=== PATIENT | female | born 1940 | race Caucasian/White ===

== ENCOUNTER 2019-07-20 11:56 | Inpatient (IN) ==
[2019-07-20 13:37] LABS: Basophils # (auto) 0.01 K/uL (0-0.2); Basophils % (auto) 0.1 %; Eosinophils # (auto) 0.01 K/uL (0-0.5); Eosinophils % (auto) 0.1 %; Hematocrit (blood only) 29.3 % (37-47); Hemoglobin 9.4 g/dL (12.0-16.0); Immature Granulocytes # (auto) 0.03 K/uL (0.00-0.02); Immature Granulocytes % (auto) 0.3 %; Lymphocytes # (auto) 1.38 K/uL (1.2-3.4); Lymphocytes % (auto) 12.3 %; Mean Corpuscular Hemoglobin 28.1 pg (25-34); Mean Corpuscular Hgb Conc 32.1 g/dL (32-36); Mean Corpuscular Volume 87.7 fL (80-100); Mean Platelet Volume 9.6 fL (7.4-10.4); Monocytes # (auto) 0.76 K/uL (0.11-0.59); Monocytes % (auto) 6.8 %; Neutrophils # (auto) 9.04 K/uL (1.4-6.5); Neutrophils % (auto) 80.4 %; Platelet Count 152 K/uL (130-400); RDW Coefficient of Variation 14.3 % (11.5-14.5); RDW Standard Deviation 45.4 fL (36.4-46.3); Red Blood Count 3.34 M/uL (4.2-5.4); White Blood Count 11.23 K/uL (4.8-10.8)
[2019-07-20 14:01] LABS: Alanine Aminotransferase 17 U/L (12-78); Albumin Globulin Ratio 0.6 (0.9-2); Albumin Level 2.6 gm/dl (3.4-5.0); Alkaline Phosphatase 67 U/L (45-117); BUN Creatinine Ratio 21.7 (10-20); Bilirubin,Total 0.4 mg/dl (0.2-1); Blood Urea Nitrogen 26 mg/dl (7-18); Calcium 8.1 mg/dl (8.5-10.1); Carbon Dioxide 33 mmol/L (21-32); Chloride 102 mmol/L (98-107); Est GFR (African American) 49.8; Globulin 4.1 gm/dl (2.5-4.0); Glucose 107 mg/dl (70-99); Sodium 138 mmol/L (136-145); Total Protein 6.7 gm/dl (6.4-8.2); Troponin I < 0.015 ng/ml (0-0.045)
[2019-07-20] MEDS ORDERED: ONDANSETRON INJ 2 MG/ML 2 ML VIAL IV STA (14:16)
[2019-07-20] MEDS ORDERED: MoRPHine SULFATE 4 MG/ML 1 ML CARP\\VIAL IV STA ×2 (14:16→16:29)
--- NOTE | 2019-07-20 15:53 | CT Scan Report ---
CT OF THE CERVICAL SPINE CLINICAL HISTORY: Neck pain status post trauma COMPARISON STUDY: No previous studies for comparison. CT DOSE: 2134.29 mGy.cm TECHNIQUE: CT scan of the cervical spine was performed from the skull base to the thoracic inlet. Vira ges are reviewed in the axial, sagittal, and coronal planes. IV contrast was not administered for thi s examination. A dose lowering technique was utilized adhering to the principles of ALARA. FINDINGS: The visualized portions of the lung apices reveal no evidence of pneumothorax. There is opacification of a single right-sided mastoid air cell The prevertebral soft tissues are normal. No acute fractures or subluxations are visualized. There are multilevel degenerative changes. The bones are osteopenic. There are exuberant anterior ost eophytes. There are multiple vertebral body endplate deformities which are in all likelihood old. IMPRESSION: No evidence of acute fracture or traumatic subluxation. Electronically signed by: Narinder Patel M.D. 07/20/2019 3:52 PM
--- NOTE | 2019-07-20 15:53 | CT Scan Report ---
CT OF THE HEAD WITHOUT CONTRAST CLINICAL HISTORY: Fall. COMPARISON STUDY: No previous studies for comparison. TECHNIQUE: Helical axial images of the head were obtained without IV contrast. Automated exposure con trol was utilized for the study. A dose lowering technique was utilized adhering to the principles o f ALARA. FINDINGS: No acute intracranial hemorrhage, midline shift or mass effect is present. The ventricular system is unremarkable. The basilar cisterns are patent. No extra-axial collections are present. Ther e are no findings to suggest acute dural sinus thrombosis or acute territorial infarct. No significan t calvarial abnormalities are present. Visualized portions of the sinuses and mastoid air cells are c lear. White matter hypodensity suggests small vessel disease. There is mild atrophy. Lathe Set Up Person image demo nstrates possible bilateral humeral neck fractures. IMPRESSION: 1. No acute intracranial findings. 2. No calvarial fracture. 3. Possible bilateral humeral neck fracture shown on adhesive bonding machine operator image. These can be assessed on shoulder r adiographs. Electronically signed by: Guille Newman M.D. 07/20/2019 3:51 PM
[2019-07-20 16:04] LABS: Appearance Urine Cloudy (Clear); Bacteria Urine Automated 1+ (Negative); Bilirubin Urine Negative (Negative); Blood Urine 1+ (Negative); Color Urine Dark Yellow; Epithelial Cell Urine Auto >30 /lpf (0-5); Glucose Urine UA Negative (Negative); Ketones Urine Negative (Negative); Leukocyte Esterase Urine 2+ (Negative); Nitrite Urine Negative (Negative); Protein Urine 1+ (Negative); Urobilinogen Urine Negative (Negative)
--- NOTE | 2019-07-20 16:50 | XRay Report ---
XR shoulder LT min 2V routine CLINICAL HISTORY: Left shoulder pain status post trauma COMPARISON: None. DISCUSSION: Arthritic changes are present. There is equivocal nondisplaced impacted proximal humeral fracture. No dislocation is visualized. Additional imaging could be obtained for further evaluation a s deemed clinically necessary. IMPRESSION: 1. Equivocal nondisplaced impacted proximal humeral fracture. No dislocation. Electronically signed by: Narinder Patel M.D. 07/20/2019 4:49 PM
--- NOTE | 2019-07-20 16:50 | XRay Report ---
RIGHT SHOULDER 3 VIEWS HISTORY: Right shoulder pain. fall COMPARISON: None. FINDINGS: The right clavicle is intact. No dislocation. Slightly impacted transverse fractures throug h the right humeral neck which extends to the greater tuberosity. The bones are osteopenic. Soft tiss ue swelling within the shoulder. No radiopaque foreign bodies. IMPRESSION: Right humeral head/neck fracture. No dislocation. Electronically signed by: Alexander Calderon M.D. 07/20/2019 4:48 PM
--- NOTE | 2019-07-20 16:54 | XRay Report ---
RIGHT HAND 3 VIEWS HISTORY: Right hand pain around 1st MC, fall COMPARISON: None. FINDINGS: Moderate degenerative changes throughout the hand and wrist. No acute fracture or dislocati on. Mild soft tissue swelling within the hand. The bones are osteopenic. Chondrocalcinosis within the wrist. No radiopaque foreign bodies. IMPRESSION: No acute fracture or dislocation within the right hand. Electronically signed by: Alexander Calderon M.D. 07/20/2019 4:53 PM
--- NOTE | 2019-07-20 17:56 | History & Physical Report ---
Date of Service July 20, 2019 Assessment & Plan (1) Fall: (2) Bilateral humeral fractures: This is a 78-year-old female who has significant PMH of COPD O2 dependent, T2DM insulin-dependent, HTN, diabetic neuropathy, depression with anxiety, hypothyroidism, history of uterine CA, history of GIST tumor who presents to [facility] ED after sustaining mechanical fall while at home. In ED patient was found to have bilateral humeral fractures, Left being impacted proximal humeral fracture, right being humeral head/neck fracture. Head CT and cervical spine CT otherwise unremarkable. Her H&H was decreased to 9.4 and 29.3, W BC 11.23, BUN 26, creatinine 1.20, glucose 107, troponin WNL. Her urinalysis had +2 leukocyte esterase, +1 bacteria and numerous epithelial cells. Per ED provider orthopedics was called who recommended nonweightbearing status of bilateral upper extremities and admission to hospital. admit to med/surg consult orthopedics Dr. Calixto Nonweightbearing bilateral upper extremities Bilateral sling ordered Ice to area 3 times daily Oxycodone 5 mg every 4 hours as needed moderate pain, morphine 4 mg IV every 4 hours for severe pain Bowel regimen with MiraLAX daily and senna S 1 tab daily Remain bedrest for now until seen and evaluated by Dr. Calixto PT/OT consulted (3) UTI (urinary tract infection): Possible UTI Urinalysis concerning for infection, but could also be contaminant WBC 11 K, currently afebrile Treat with IV Rocephin until culture returns (4) Diabetes mellitus, type II: Unknown A1c Obtain A1c in a.m. Continue NPH twice daily along with NovoLog before meals -discussed with pharmacy Monitor (5) Hypertension: Patient significantly hypertensive in ED, likely in setting of acute pain She did not take her medications this morning We will give losartan 100 mg x 1 now, she will resume her metoprolol this evening Continue losartan, metoprolol but will hold torsemide for now Monitor volume status daily (6) Chronic respiratory failure with hypoxia and hypercapnia: Continue oxygen supplementation On 2 L of O2 at home (7) COPD (chronic obstructive pulmonary disease): No acute exacerbation Oxygen dependent Continue Symbicort, DuoNeb as needed, incentive spirometry Follows [facility] pulmonology (8) CKD (chronic kidney disease) stage 3, GFR 30-59 ml/min: BUN/creatinine 26 and 1.20 Unknown baseline Will give 1 L IVF 60 cc/h Repeat BMP in a.m. (9) Skin excoriation: Numerous areas of skin excoriation, appearance of picking No evidence of active cellulitis Lesion upper right lip, does appear similar to impetigo Placed on Bactroban specifically to area above right lip, and other areas of excoriation Will consult wound nurse for further skin treatment (10) Hypothyroidism: Per patient history of partial thyroidectomy Continue levothyroxine, she states dosage recently reduced from 137 mcg to 125 (11) Depression: Continue Celexa and Seroquel at bedtime Affect flat, mood stable (12) DVT prophylaxis: SCDs/teds, subcu Lovenox Disposition: Admit to med/surg, nurse case management consulted as patient will likely need rehab placement Follow-up: PCP upon discharge Patient was seen and examined in collaboration with Dr. Rodgers, please see addendum History of Present Illness Chief Complaint: Mechanical fall prior to arrival Primary Care Provider: MIC HERNANDEZ This is a 78-year-old female who has significant PMH of COPD O2 dependent, T2DM insulin-dependent, HTN, diabetic neuropathy, depression with anxiety, hypothyroidism, history of uterine CA, history of GIST tumor who presents to [facility] ED after sustaining mechanical fall while at home. She was walking at home when she tripped over her oxygen tubing, reached out with both arms to catch herself and fell to the ground. She immediately had bilateral upper extremity pain and inability to get herself up. She therefore presented to ED. She denies hitting her head or syncopal episode. Prior to falling she denies any recent illness, fever, chills, sweats, lightheadedness, dizziness, chest pain, shortness breath at rest, emesis, abdominal pain, diarrhea, dysuria, increased urgency or frequency with urination. She said she does get intermittent nausea with meals. She denies any significant weight gain or loss. Denies any orthopnea or PND. She did not take any of her medications at this morning, except 45 units of NPH. In ED patient was found to have bilateral humeral fractures, Left being impacted proximal humeral fracture, right being humeral head/neck fracture. Head CT and cervical spine CT otherwise unremarkable. Her H&H was decreased to 9.4 and 29.3, W BC 11.23, BUN 26, creatinine 1.20, glucose 107, troponin WNL. Her urinalysis had +2 leukocyte esterase, +1 bacteria and numerous epithelial cells Per ED provider orthopedics was called who recommended nonweightbearing status of bilateral upper extremities and admission to hospital. Allergies Allergy/AdvReac Type Severity Reaction Status Date / Time Sulfa (Sulfonamide Allergy Intermediate HIVES Verified 07/20/19 14:20 Antibiotics) Home Medications Home Medications Medication Instructions Recorded Confirmed Type albuterol sulfate 90 mcg/actuation 2 puffs INH Q4H PRN gm 06/22/19 07/20/19 History aerosol inhaler budesonide-formoterol HFA 160 2 puffs INH BID 06/22/19 07/20/19 History mcg-4.5 mcg/actuation aerosol inhaler cholecalciferol (vitamin D3) 1,000 1,000 units PO QAM 06/22/19 07/20/19 History unit capsule escitalopram oxalate 20 mg tablet 20 mg PO QAM tab 06/22/19 07/20/19 History insulin human U-100 NPH-regulr 1 sliding scale dose SQ 06/22/19 07/20/19 History 70-30 mix 100 unit/mL subcutaneous USEASDIRECTD susp metoprolol tartrate 25 mg tablet 12.5 mg PO BID 06/22/19 07/20/19 History quetiapine 25 mg tablet 25 mg PO HS tab 06/22/19 07/20/19 History acetaminophen [Tylenol Extra 500 mg PO Q6H PRN 07/20/19 07/20/19 History Strength] gabapentin 200 mg PO BID 07/20/19 07/20/19 History levothyroxine 125 mcg PO DAILY 07/20/19 07/20/19 History losartan 100 mg PO DAILY 07/20/19 07/20/19 History torsemide 20 mg PO DAILY 07/20/19 07/20/19 History Past Med/Surg History Medical History Chronic respiratory failure with hypoxia and hypercapnia CKD (chronic kidney disease) stage 3, GFR 30-59 ml/min COPD (chronic obstructive pulmonary disease) Depression (Chronic) Diabetes mellitus, type II (Chronic) Femur fracture (Acute) Hip fracture (Acute) History of DVT (deep vein thrombosis) (Chronic) Hypertension (Chronic) Hypothyroidism (Chronic) Panic attacks (Chronic) Surgical History History of cholecystectomy History of partial thyroidectomy History of tonsillectomy and adenoidectomy History of total left hip arthroplasty Status post cholecystectomy (Chronic) Status post hysterectomy (Chronic) Family History Other No pertinent family history in first degree relatives Social History Preferred Language: Belarusian Communication Ability: Effective Post Graduate Intern Required: No Beliefs That Will Affect Care: Restorationism Restorationism Beliefs: adventist marital status: Current Living Situation: Spouse Other Information That Helps Us Care for You: No Feels Safe at Home: Yes Safety Concerns: Feels Safe At This Time Smoking Status: Never smoker Do You Dip or Chew Tobacco: No ; Hx Alcohol Use: No Hx Substance Use: No Review of Systems Review of Systems: All systems reviewed & are unremarkable except as noted in HPI & below Physical Exam Physical Exam: Constitutional: WD/WN, Elderly, F, vitals as above, NAD, lying in bed, pleasant but drowsy, conversing easily Head: Normocephalic, Atraumatic Eyes: PERRL, conjunctivae normal, anicteric sclerae ENMT: external ear and nose normal, oropharynx with dry mucous membranes Neck: trachea midline, no thyromegaly normal visual inspection Respiratory: normal respiratory effort, lungs clear to auscultation, no wheeze, rales, rhonchi. Normal insp/exp effort, no accessory muscle use Cardiovascular: RRR, no murmur, no edema Vessels: no JVD or carotid bruit Chest: normal inspection of chest Abdomen: normal bowel sounds, soft, nontender, no hepatosplenomegaly Musculoskeletal: no cyanosis or clubbing, extremities motor strength 5/5 in b/l lower ext. Skin: + excoriations on b/l lower extremities, anterior chest wall, b/l upper extremities and R upper/later lip region, no overt cellulitis. Skin warm and dry mild turgor Neurologic: PERRL, EOMI, accommodation nl, no face palsy, no dysarthria CN's II-XI intact bilaterally and moves b/l lower ext, given fracture strength/rom not tested in b/l UE. Psychiatric: A+Ox3, euthymic affect Lymphatic: no cervical or axillary lymphadenopathy : deferred Results & Data Vital Signs (Past 12 Hours) Vital Signs Temp Pulse Pulse Resp BP BP Pulse Ox 07/20/19 17:00 107 H 20 181/96 H 98 07/20/19 15:01 102 H 19 96 07/20/19 15:00 103 H 18 188/91 H 96 07/20/19 14:30 100 H 19 198/96 H 07/20/19 14:01 97 H 21 99 07/20/19 14:00 97 H 21 182/92 H 99 07/20/19 13:51 99 07/20/19 13:31 93 H 22 07/20/19 13:30 96 H 95 H 20 170/90 H 170/90 H 100 07/20/19 13:01 89 18 96 07/20/19 13:00 89 18 163/73 H 93 07/20/19 12:31 87 18 97 07/20/19 12:30 87 17 172/79 H 97 07/20/19 12:07 86 18 96 07/20/19 12:04 85 15 179/77 H 96 07/20/19 11:46 36.8 C 87 24 179/77 H 97 Laboratory Results Short CBC 07/20/19 Range/Units 13:28 WBC 11.23 H (4.8-10.8) K/uL Hgb 9.4 L (12.0-16.0) g/dL Hct 29.3 L (37-47) % Plt Count 152 (130-400) K/uL BMP 07/20/19 07/20/19 13:28 14:46 Sodium 138 Potassium 4.0 Chloride 102 Carbon Dioxide 33 H BUN 26 H Creatinine 1.20 Glucose 107 H Calcium 8.1 L Cardiac Enzymes 07/20/19 Range/Units 13:28 Total Creatine Kinase TNP Troponin I < 0.015 (0-0.045) ng/ml Liver Function 07/20/19 07/20/19 Range/Units 13:28 14:46 Total Bilirubin 0.4 (0.2-1) mg/dl AST 19 (15-37) U/L ALT 17 (12-78) U/L Alkaline Phosphatase 67 (45-117) U/L Albumin 2.6 L (3.4-5.0) gm/dl Urine 07/20/19 Range/Units 13:30 Urine Color Dark Yellow Urine Appearance Cloudy A (Clear) Urine pH 5.0 (4.5-7.5) Ur Specific Foss 1.020 (1.000-1.030) Urine Protein 1+ H (Negative) Urine Glucose (UA) Negative (Negative) Diagnostic Findings C spine CT: IMPRESSION: No evidence of acute fracture or traumatic subluxation. Hand Xray: IMPRESSION: No acute fracture or dislocation within the right hand. Head CT: IMPRESSION: 1. No acute intracranial findings. 2. No calvarial fracture. 3. Possible bilateral humeral neck fracture shown on ore roaster image. These can be assessed on shoulder radiographs. Shoulder xray L: IMPRESSION: 1. Equivocal nondisplaced impacted proximal humeral fracture. No dislocation. Shoulder xray R: IMPRESSION: Right humeral head/neck fracture. No dislocation. Medications Administered Discontinued Medications Morphine Sulfate (Morphine Sulfate) 4 mg IV NOW STA Stop: 07/20/19 14:17 Last Admin: 07/20/19 14:40 Dose: 4 mg Documented by: [id number] Morphine Sulfate (Morphine Sulfate) 4 mg IV NOW STA Stop: 07/20/19 16:30 Last Admin: 07/20/19 17:11 Dose: 4 mg Documented by: [id number] Ondansetron HCl (Zofran) 4 mg IV NOW STA Stop: 07/20/19 14:17 Last Admin: 07/20/19 14:40 Dose: 4 mg Documented by: [id number] ECG Rate (beats per minute): 96 Rhythm: normal sinus Findings: + PAC Code Status & VTE Plan Code Status Full Code VTE Prophylaxis Plan VTE Prophylaxis will be ordered: Yes Supervising Physician Co-Signing Physician Notes Attending addendum: The patient was seen and examined in emergency room in presence of the She is a 78-year-old obese female with significant PMH of COPD O2 dependent, T2DM insulin-dependent, HTN, diabetic neuropathy, depression with anxiety, hypothyroidism, history of uterine CA, history of GIST tumor who presents to [facility] ED after sustaining mechanical fall while at home. Ended up with bilateral humeral fractures Complaining of pain with any movement of the upper extremities and denies any other significant symptom On examination No apparent distress at rest except pain Hemodynamically stable with blood pressure on the upper side Both upper extremities are in sling Chest-decreased breath sounds with occasional wheezing but sites Heart-S1-S2, regular Abdomen-soft, nontender, bowel sounds present Extremities-chronic skin changes with excoriation and trace edema bilaterally, no evidence of cellulitis PRODUCT EXPERT-alert, awake and oriented x3. Generally weak Admission labs and imaging studies reviewed Has nondisplaced impacted proximal humeral fracture on left and right humeral h ead/neck fracture following the mechanical fall at home today. Ortho has been consulted Other significant comorbid conditions remained stable Agree with assessment and plan as outlined above by SHAUNA Ambriz DR (1) Bilateral humeral fractures Encounter type: initial encounter Fracture type: closed Qualified Code(s): S42.301A - Unspecified fracture of shaft of humerus, right arm, initial encounter for closed fracture; S42.302A - Unspecified fracture of shaft of humerus, left arm, initial encounter for closed fracture (2) Fall Encounter type: initial encounter Qualified Code(s): W19.XXXA - Unspecified fall, initial encounter
[2019-07-20] MEDS: LOSARTAN POTASSIUM 50 MG TAB PO SCH (18:49)
[2019-07-20] MEDS ORDERED: ALUMINUM/MAGNESIUM SUSP 30 ML UDC PO PRN (19:16)
[2019-07-20] MEDS ORDERED: MAGNESIUM HYDROXIDE SUSP 30 ML UDC PO PRN (19:16)
[2019-07-20] MEDS ORDERED: GLUCOSE 40% GEL 15 GM TUBE PO PRN (19:16)
[2019-07-20] MEDS ORDERED: OXYCODONE/ACETAMINOPHEN 5mg/325mg TAB PO PRN (19:16)
[2019-07-20] MEDS ORDERED: GLUCAGON FOR INJ 1 MG VIAL SQ PRN (19:16)
[2019-07-20] MEDS ORDERED: CARBOHYDRATES FOR HYPOGLYCEMIA PO PRN (19:16)
[2019-07-20] MEDS ORDERED: ALBUT/IPRATROP 3MG/0.5MG NEB 3 ML VIAL NEB PRN (19:16)
[2019-07-20] MEDS ORDERED: DEXTROSE 50% 50 ML SYRINGE IV PRN (19:16)
[2019-07-20] MEDS ORDERED: cefTRIAXone SODIUM 350 MG/ML IM IM SCH (19:16)
[2019-07-20] MEDS ORDERED: GLUCOSE 10 TABS/TUBE PO PRN (19:16)
[2019-07-20] MEDS ORDERED: ONDANSETRON INJ 2 MG/ML 2 ML VIAL IV PRN (19:16)
[2019-07-20] MEDS ORDERED: SODIUM CHLORIDE 0.9% 1000ML 1,000 ML IV SCH (19:30)
[2019-07-20] MEDS: MoRPHine SULFATE 4 MG/ML 1 ML CARP\\VIAL IV PRN (19:53)
--- NOTE | 2019-07-20 19:55 | Emergency Department Note ---
Entered by Juan Paez acting as a scribe for ED Provider Note CHIEF COMPLAINT: Fall HISTORY OF PRESENT ILLNESS: The patient is a 78 year old female who presents to the ED after falling this morning shortly prior to arrival. The patient reports that she was walking when she tripped on her oxygen tubing and fell forward. The patient states she initially fell straight to her knees, then to her arms and then hit her face. The patient is currently complaining of severe bilateral shoulder pain that is worse with movement. The patient also has a C-collar in place due to constant neck pain from the fall. The patient wears her oxygen at all times and lives at home with her . The patient denies any lower extremity pain. She is not on any blood thinners. Pt denies LOC, headache, fevers, chills, diaphoresis, visual changes, neck pain, chest pain, breathing difficulties, nausea, vomiting, abdominal pain, back pain, melena, hematochezia, urinary symptoms, numbness, weakness, lymphadenopathy, rash, or other complaints. REVIEW OF SYSTEMS: See HPI for pertinent positives and negatives. A total of ten systems were reviewed and were otherwise negative. PMHx/PSHx: HTN Type 2 Diabetes DVT Hypothyroidism Cholecystectomy Hysterectomy SOCIAL HISTORY: Patient lives at home. PHYSICAL EXAM: GENERAL: Awake, alert, well-appearing, in no distress HENT: Normocephalic. Contusion to right cheek. Contusion on right forehead. Oropharynx unremarkable. EYES: Normal conjunctiva. Sclera non-icteric. NECK: C collar in place. Inspection normal. Non-tender. Supple. No nuchal rigidity. FROM. No masses. Trachea is midline. No JVD. RESPIRATORY: Clear to auscultation. No wheezes. No rales. Normal respiratory effort. CARDIAC: Normal rate. Normal rhythm. No murmurs. No rubs. Extremities warm and well perfused. Pulses equal. No JVD. GI: Soft, non-distended. No tenderness to palpation. No rebound or guarding. No masses. RECTAL: Deferred. MUSCULOSKELETAL: Atraumatic. Chest examination reveals no tenderness. Mild lower midline tenderness to C spine. The back is symmetrical on inspection without obvious abnormality. There is no CVA tenderness to palpation. No joint edema. Moderate tenderness to the proximal left arm with minimal range of motion secondary to pain, and moderate tenderness to the proximal right arm with minimal range of motion secondary to pain. Fingers, hand, wrist, forearm, and elbow are nontender on the left side. Mild tenderness to the base of the right thumb, everything else is nontender. LOWER EXTREMITIES: Secondary excoriation to lower extremity with no acute appearing wound. Calves are equal size bilaterally and non-tender. No edema. No discoloration. NEURO: Normal sensorium. No sensory or motor deficits noted. SKIN: No rash or jaundice noted. EMERGENCY DEPARTMENT COURSE: 1345: The patient was evaluated in room B2, and a complete history and physical examination were performed. 1709: I discussed the case with Marion Rosales PA-C who accepts the patient for further evaluation under Dr. [facility] Hospitalist service. 1713: I checked on and updated the patient and her . I am currently waiting on [facility] to call back. 1715: I discussed the case with Dr. Atkins-[facility] who agrees to be on consult for the patient. MEDICAL DECISION MAKING: Prior records/ancillary studies reviewed. Triage Nursing notes reviewed and agree them. Additional history obtained from EMS. The patient's history was concerning for traumatic injury Differential diagnosis: Etiologies such as fracture, dislocation, intra-abdominal, pneumothorax, intrathoracic , intracranial, neurologic, as well as other traumatic pathologies were entertained. Physical examination findings: As above. Cervical collar in place. Exceptional tenderness at both shoulders. No significant knee joint tenderness bilaterally. Lower extremities are otherwise atraumatic. ER treatment provided: IV Zofran IV morphine Cervical precautions Supplemental oxygen On reassessment the patient felt better. Diagnostic interpretation by me: A 12 lead ECG revealed no emergent pathology. The labs revealed a mild leukocytosis on CBC. mild anemia present. Urinalysis without clear signs of infection, culture pending. Chemistry panel unremarkable. Imaging studies: CT imaging of the head neck did not reveal any acute findings. Cervical collar discontinued and her neck was examined. She had no findings to suggest occult cervical injury. X-ray imaging of the left and right shoulders were performed. There are bilateral humeral fractures present. X-ray imaging of the right hand performed and did not reveal any evidence of fracture. Consultation: A consultation was placed with the [facility] hospitalist service. The case was discussed and diagnostics were reviewed. The patient was evaluated in the ER for further management. I also discussed the case with [facility]. They will consult on the patient. IMPRESSION: Fall Closed head injury Bilateral proximal humeral fracture Cervical strain PLAN: Being evaluated by hospitalist The delfinae's documentation has been prepared under my direction and personally reviewed by me in its entirety. I confirm that the note above accurately reflects all work, treatment, procedures, and medical decision making performed by me. Impression & Plan Fall, Closed head injury, Bilateral humeral fractures, Cervical strain Past Med/Surg History Medical History Chronic respiratory failure with hypoxia and hypercapnia CKD (chronic kidney disease) stage 3, GFR 30-59 ml/min COPD (chronic obstructive pulmonary disease) Depression (Chronic) Diabetes mellitus, type II (Chronic) Femur fracture (Acute) Hip fracture (Acute) History of DVT (deep vein thrombosis) (Chronic) Hypertension (Chronic) Hypothyroidism (Chronic) Panic attacks (Chronic) Surgical History History of cholecystectomy History of partial thyroidectomy History of tonsillectomy and adenoidectomy History of total left hip arthroplasty Status post cholecystectomy (Chronic) Status post hysterectomy (Chronic) Family History Other No pertinent family history in first degree relatives Social History Preferred Language: Slovenian Communication Ability: Effective Certified Credit Counselor Required: No Beliefs That Will Affect Care: Jainism Jainism Beliefs: hoahaoism marital status: Current Living Situation: Spouse Other Information That Helps Us Care for You: No Feels Safe at Home: Yes Safety Concerns: Feels Safe At This Time Smoking Status: Never smoker Do You Dip or Chew Tobacco: No ; Hx Alcohol Use: No Hx Substance Use: No Results & Data Vital Signs Vital Signs - 24 hr 07/20/19 11:46 07/20/19 12:04 07/20/19 12:07 Temperature 36.8 C Temperature Source Oral Pulse Rate 87 85 86 Pulse Rate [Apical] Pulse Rate from SpO2 Sensor 85 86 Pulse Rhythm Regular Respiratory Rate 24 15 18 Respiratory Effort / Characteristics Non-Labored Respiratory Depth Normal Respiratory Pattern Blood Pressure 179/77 H 179/77 H Blood Pressure [Right Arm] Blood Pressure Mean 111 144 Blood Pressure Mean [Right Arm] Blood Pressure Position Lying Blood Pressure Position [Right Arm] Pulse Oximetry 97 96 96 Oxygen Delivery Method Nasal Cannula Oxygen Flow Rate 2 Sepsis Recent Fever Within 48 Hours No Sepsis Action Taken by Nursing No Action Required Oxygen Flow Rate - Titration Pulse Oximetry Post Tiitration 07/20/19 12:30 07/20/19 12:31 07/20/19 13:00 Temperature Temperature Source Pulse Rate 87 87 89 Pulse Rate [Apical] Pulse Rate from SpO2 Sensor 87 87 89 Pulse Rhythm Respiratory Rate 17 18 18 Respiratory Effort / Characteristics Respiratory Depth Respiratory Pattern Blood Pressure 172/79 H 163/73 H Blood Pressure [Right Arm] Blood Pressure Mean 135 131 Blood Pressure Mean [Right Arm] Blood Pressure Position Blood Pressure Position [Right Arm] Pulse Oximetry 97 97 93 Oxygen Delivery Method Oxygen Flow Rate Sepsis Recent Fever Within 48 Hours Sepsis Action Taken by Nursing Oxygen Flow Rate - Titration Pulse Oximetry Post Tiitration 07/20/19 13:01 07/20/19 13:30 07/20/19 13:31 Temperature Temperature Source Pulse Rate 89 96 H 93 H Pulse Rate [Apical] 95 H Pulse Rate from SpO2 Sensor 89 95 H Pulse Rhythm Respiratory Rate 18 20 22 Respiratory Effort / Characteristics Respiratory Depth Respiratory Pattern Blood Pressure 170/90 H Blood Pressure [Right Arm] 170/90 H Blood Pressure Mean 132 Blood Pressure Mean [Right Arm] 116 Blood Pressure Position Blood Pressure Position [Right Arm] Pulse Oximetry 96 100 Oxygen Delivery Method Nasal Cannula Room Air Oxygen Flow Rate 2 Sepsis Recent Fever Within 48 Hours Sepsis Action Taken by Nursing Oxygen Flow Rate - Titration 4 Pulse Oximetry Post Tiitration 96 07/20/19 13:51 07/20/19 14:00 07/20/19 14:01 Temperature Temperature Source Pulse Rate 97 H 97 H Pulse Rate [Apical] Pulse Rate from SpO2 Sensor 93 H 97 H Pulse Rhythm Respiratory Rate 21 21 Respiratory Effort / Characteristics Respiratory Depth Respiratory Pattern Blood Pressure 182/92 H Blood Pressure [Right Arm] Blood Pressure Mean 152 Blood Pressure Mean [Right Arm] Blood Pressure Position Blood Pressure Position [Right Arm] Pulse Oximetry 99 99 99 Oxygen Delivery Method Nasal Cannula Oxygen Flow Rate 4 Sepsis Recent Fever Within 48 Hours Sepsis Action Taken by Nursing Oxygen Flow Rate - Titration Pulse Oximetry Post Tiitration 07/20/19 14:30 07/20/19 15:00 07/20/19 15:01 Temperature Temperature Source Pulse Rate 100 H 103 H 102 H Pulse Rate [Apical] Pulse Rate from SpO2 Sensor 102 H 102 H Pulse Rhythm Respiratory Rate 19 18 19 Respiratory Effort / Characteristics Respiratory Depth Respiratory Pattern Blood Pressure 198/96 H 188/91 H Blood Pressure [Right Arm] Blood Pressure Mean 135 106 Blood Pressure Mean [Right Arm] Blood Pressure Position Blood Pressure Position [Right Arm] Pulse Oximetry 96 96 Oxygen Delivery Method Oxygen Flow Rate Sepsis Recent Fever Within 48 Hours Sepsis Action Taken by Nursing Oxygen Flow Rate - Titration Pulse Oximetry Post Tiitration 07/20/19 17:00 Temperature Temperature Source Pulse Rate Pulse Rate [Apical] 107 H Pulse Rate from SpO2 Sensor Pulse Rhythm Respiratory Rate 20 Respiratory Effort / Characteristics Non-Labored Spontaneous Respiratory Depth Respiratory Pattern Regular Blood Pressure Blood Pressure [Right Arm] 181/96 H Blood Pressure Mean Blood Pressure Mean [Right Arm] 124 Blood Pressure Position Blood Pressure Position [Right Arm] Sitting Pulse Oximetry 98 Oxygen Delivery Method Nasal Cannula Oxygen Flow Rate 2 Sepsis Recent Fever Within 48 Hours Sepsis Action Taken by Nursing Oxygen Flow Rate - Titration Pulse Oximetry Post Tiitration Home Medications Current Medication List: was personally reviewed by me Laboratory Data Attestation: I reviewed the patient's lab results. Result diagrams: 07/20/19 13:28 07/20/19 14:46 Lab Results 07/20/19 07/20/19 07/20/19 Range/Units 13:28 13:28 13:30 WBC 11.23 H (4.8-10.8) K/uL RBC 3.34 L (4.2-5.4) M/uL Hgb 9.4 L (12.0-16.0) g/dL Hct 29.3 L (37-47) % MCV 87.7 (80-100) fL MCH 28.1 (25-34) pg MCHC 32.1 (32-36) g/dL RDW Std Deviation 45.4 (36.4-46.3) fL RDW Coeff of [place] 14.3 (11.5-14.5) % Plt Count 152 (130-400) K/uL MPV 9.6 (7.4-10.4) fL Immature Gran % (Auto) 0.3 % Neut % (Auto) 80.4 % Lymph % (Auto) 12.3 % [place] % (Auto) 6.8 % Eos % (Auto) 0.1 % Baso % (Auto) 0.1 % Immature Gran # (Auto) 0.03 H (0.00-0.02) K/uL Neut # (Auto) 9.04 H (1.4-6.5) K/uL Lymph # (Auto) 1.38 (1.2-3.4) K/uL [place] # (Auto) 0.76 H (0.11-0.59) K/uL Eos # (Auto) 0.01 (0-0.5) K/uL Baso # (Auto) 0.01 (0-0.2) K/uL Sodium 138 (136-145) mmol/L Potassium (3.5-5.1) mmol/L Chloride 102 (98-107) mmol/L Carbon Dioxide 33 H (21-32) mmol/L Anion Gap 3.0 (3-11) BUN 26 H (7-18) mg/dl Creatinine 1.20 (0.6-1.2) mg/dl Est Cr Clr Drug Dosing 50.0 ml/min Est GFR ( Amer) 49.8 Est GFR (Non-Af Amer) 43.0 BUN/Creatinine Ratio 21.7 H (10-20) Glucose 107 H (70-99) mg/dl Calcium 8.1 L (8.5-10.1) mg/dl Total Bilirubin 0.4 (0.2-1) mg/dl AST (15-37) U/L ALT 17 (12-78) U/L Alkaline Phosphatase 67 (45-117) U/L Total Creatine Kinase TNP Troponin I < 0.015 (0-0.045) ng/ml Total Protein 6.7 (6.4-8.2) gm/dl Albumin 2.6 L (3.4-5.0) gm/dl Globulin 4.1 H (2.5-4.0) gm/dl Albumin/Globulin Ratio 0.6 L (0.9-2) Urine Color Dark Yellow Urine Appearance Cloudy A (Clear) Urine pH 5.0 (4.5-7.5) Ur Specific [place] 1.020 (1.000-1.030) Urine Protein 1+ H (Negative) Urine Glucose (UA) Negative (Negative) Urine Ketones Negative (Negative) Urine Blood 1+ H (Negative) Urine Nitrite Negative (Negative) Urine Bilirubin Negative (Negative) Urine Urobilinogen Negative (Negative) Ur Leukocyte Esterase 2+ H (Negative) Urine WBC (Auto) 5-10 H (0-5) /hpf Urine RBC (Auto) 10-30 H (0-4) /hpf U Hyaline Cast (Auto) 5-10 H (0-5) /lpf U Epithel Cells (Auto) >30 H (0-5) /lpf Urine Bacteria (Auto) 1+ H (Negative) 07/20/19 Range/Units 14:46 WBC (4.8-10.8) K/uL RBC (4.2-5.4) M/uL Hgb (12.0-16.0) g/dL Hct (37-47) % MCV (80-100) fL MCH (25-34) pg MCHC (32-36) g/dL RDW Std Deviation (36.4-46.3) fL RDW Coeff of Ganga (11.5-14.5) % Plt Count (130-400) K/uL MPV (7.4-10.4) fL Immature Gran % (Auto) % Neut % (Auto) % Lymph % (Auto) % [place] % (Auto) % Eos % (Auto) % Baso % (Auto) % Immature Gran # (Auto) (0.00-0.02) K/uL Neut # (Auto) (1.4-6.5) K/uL Lymph # (Auto) (1.2-3.4) K/uL [place] # (Auto) (0.11-0.59) K/uL Eos # (Auto) (0-0.5) K/uL Baso # (Auto) (0-0.2) K/uL Sodium (136-145) mmol/L Potassium 4.0 (3.5-5.1) mmol/L Chloride (98-107) mmol/L Carbon Dioxide (21-32) mmol/L Anion Gap (3-11) BUN (7-18) mg/dl Creatinine (0.6-1.2) mg/dl Est Cr Clr Drug Dosing ml/min Est GFR ( Amer) Est GFR (Non-Af Amer) BUN/Creatinine Ratio (10-20) Glucose (70-99) mg/dl Calcium (8.5-10.1) mg/dl Total Bilirubin (0.2-1) mg/dl AST 19 (15-37) U/L ALT (12-78) U/L Alkaline Phosphatase (45-117) U/L Total Creatine Kinase Troponin I (0-0.045) ng/ml Total Protein (6.4-8.2) gm/dl Albumin (3.4-5.0) gm/dl Globulin (2.5-4.0) gm/dl Albumin/Globulin Ratio (0.9-2) Urine Color Urine Appearance (Clear) Urine pH (4.5-7.5) Ur Specific [place] (1.000-1.030) Urine Protein (Negative) Urine Glucose (UA) (Negative) Urine Ketones (Negative) Urine Blood (Negative) Urine Nitrite (Negative) Urine Bilirubin (Negative) Urine Urobilinogen (Negative) Ur Leukocyte Esterase (Negative) Urine WBC (Auto) (0-5) /hpf Urine RBC (Auto) (0-4) /hpf U Hyaline Cast (Auto) (0-5) /lpf U Epithel Cells (Auto) (0-5) /lpf Urine Bacteria (Auto) (Negative) Administered Medications Sodium Chloride (Nss 1000ml) 1,000 mls @ 60 mls/hr IV .[id number] SUJEY Stop: 07/21/19 12:09 Last Admin: 07/20/19 19:43 Dose: 60 mls/hr Documented by: [id number] Losartan Potassium (Cozaar) 100 mg PO DAILY SUJEY Stop: 08/19/19 17:59 Last Admin: 07/20/19 18:49 Dose: 100 mg Documented by: [id number] Ondansetron HCl (Zofran) 4 mg IV Q6H PRN PRN Reason: Nausea Stop: 08/19/19 19:15 Last Admin: 07/20/19 19:41 Dose: 4 mg Documented by: [id number] Discontinued Medications Morphine Sulfate (Morphine Sulfate) 4 mg IV NOW STA Stop: 07/20/19 14:17 Last Admin: 07/20/19 14:40 Dose: 4 mg Documented by: [id number] Morphine Sulfate (Morphine Sulfate) 4 mg IV NOW STA Stop: 07/20/19 16:30 Last Admin: 07/20/19 17:11 Dose: 4 mg Documented by: [id number] Ondansetron HCl (Zofran) 4 mg IV NOW STA Stop: 11/15/19 14:17 Last Admin: 07/20/19 14:40 Dose: 4 mg Documented by: [id number] Imaging Data Radiologist's Impression: Radiology results as stated below per my review and the radiologist's interpretation: CT OF THE CERVICAL SPINE CLINICAL HISTORY: Neck pain status post trauma COMPARISON STUDY: No previous studies for comparison. CT DOSE: 2134.29 mGy.cm TECHNIQUE: CT scan of the cervical spine was performed from the skull base to the thoracic inlet. Images are reviewed in the axial, sagittal, and coronal planes. IV contrast was not administered for this examination. A dose lowering technique was utilized adhering to the principles of ALARA. FINDINGS: The visualized portions of the lung apices reveal no evidence of pneumothorax. There is opacification of a single right-sided mastoid air cell The prevertebral soft tissues are normal. No acute fractures or subluxations a re visualized. There are multilevel degenerative changes. The bones are osteopenic. There are exuberant anterior osteophytes. There are multiple vertebral body endplate deformities which are in all likelihood old. IMPRESSION: No evidence of acute fracture or traumatic subluxation. Electronically signed by: Narinder Patel M.D. 07/20/2019 3:[address] OF THE HEAD WITHOUT CONTRAST CLINICAL HISTORY: Fall. COMPARISON STUDY: No previous studies for comparison. TECHNIQUE: Helical axial images of the head were obtained without IV contrast. Automated exposure control was utilized for the study. A dose lowering technique was utilized adhering to the principles of ALARA. FINDINGS: No acute intracranial hemorrhage, midline shift or mass effect is present. The ventricular system is unremarkable. The basilar cisterns are patent. No extra-axial collections are present. There are no findings to suggest acute dural sinus thrombosis or acute territorial infarct. No significant calvarial abnormalities are present. Visualized portions of the sinuses and mastoid air cells are clear. White matter hypodensity suggests small vessel disease. There is mild atrophy. Solar Energy Installation Manager image demonstrates possible bilateral humeral neck fractures. IMPRESSION: 1. No acute intracranial findings. 2. No calvarial fracture. 3. Possible bilateral humeral neck fracture shown on advance scout image. These can be assessed on shoulder radiographs. Electronically signed by: Guille Newman M.D. 07/20/2019 3:51 PM RIGHT HAND 3 VIEWS HISTORY: Right hand pain around 1st MC, fall COMPARISON: None. FINDINGS: Moderate degenerative changes throughout the hand and wrist. No acute fracture or dislocation. Mild soft tissue swelling within the hand. The bones are osteopenic. Chondrocalcinosis within the wrist. No radiopaque foreign bodies. IMPRESSION: No acute fracture or dislocation within the right hand. Electronically signed by: Alexander Calderon M.D. 07/20/2019 4:53 PM XR shoulder LT min 2V routine CLINICAL HISTORY: Left shoulder pain status post trauma COMPARISON: None. DISCUSSION: Arthritic changes are present. There is equivocal nondisplaced impacted proximal humeral fracture. No dislocation is visualized. Additional imaging could be obtained for further evaluation as deemed clinically necessary. IMPRESSION: 1. Equivocal nondisplaced impacted proximal humeral fracture. No dislocation. Electronically signed by: Narinder Patel M.D. 07/20/2019 4:49 PM RIGHT SHOULDER 3 VIEWS HISTORY: Right shoulder pain. fall COMPARISON: None. FINDINGS: The right clavicle is intact. No dislocation. Slightly impacted transverse fractures through the right humeral neck which extends to the greater tuberosity. The bones are osteopenic. Soft tissue swelling within the shoulder. No radiopaque foreign bodies. IMPRESSION: Right humeral head/neck fracture. No dislocation. Electronically signed by: Alexander Calderon M.D. 07/20/2019 4:48 PM ECG Data Attestation: I personally reviewed and interpreted this ECG as follows: Indication: + other (trauma) Rate (beats per minute): 96 Rhythm: sinus rhythm ECG Intervals/blocks: + Normal QRS and + Normal QT ECG [place]: + Normal ECG ST segments: no ST depression and no ST elevation ECG Findings: + PACs; no PVCs Blood Pressure Blood Pressure Findings: Elevated blood pressure Blood Pressure Disposition: further management by hospitalist Discharge Plan Visit Data *Final* Discharge Date/Time: 07/20/19 18:45 Chief Complaint: Fall ED Provider: [place] Song Discharge Problem: Fall, Closed head injury, Bilateral humeral fractures, Cervical strain Patient Disposition: Admitted As Inpatient Discharge Instructions Interventions: ED Discharge Assessment Last Done: 07/20/19 18:45 Discharge Problem: Fall Qualifiers: Encounter type: initial encounter Qualified Code(s): W19.XXXA - Unspecified fall, initial encounter Closed head injury Qualifiers: Encounter type: initial encounter Qualified Code(s): S09.90XA - Unspecified injury of head, initial encounter Bilateral humeral fractures Qualifiers: Encounter type: initial encounter Fracture type: closed Qualified Code(s): S42.301A - Unspecified fracture of shaft of humerus, right arm, initial encounter for closed fracture Cervical strain Qualifiers: Encounter type: initial encounter Qualified Code(s): S16.1XXA - Strain of muscle, fascia and tendon at neck level, initial encounter The scribe's documentation has been prepared under my direction and personally reviewed by me in its entirety. I confirm that the note above accurately reflects all work, treatment, procedures, and medical decision making performed by me.
[2019-07-20] MEDS: cefTRIAXone SODIUM 2,000 MG in DEXTROSE 5% 50 ML IV SCH (20:57)
[2019-07-20] MEDS ORDERED: INSULIN ASPART 100 UNITS/ML 3 ML PEN SC SCH (21:00)
[2019-07-20] MEDS: BUDESONIDE/FORMOTEROL FUMARATE 160/4.5 60 PUFFS/INHALER INH SCH (21:05)
[2019-07-20] MEDS: ENOXAPARIN INJ 40 MG/0.4 ML SYR SQ SCH (21:06)
[2019-07-20] MEDS: MUPIROCIN 2% OINT 22 GM TUBE EXT SCH (21:06)
[2019-07-20] MEDS: GABAPENTIN 100 MG CAP PO SCH (21:06)
[2019-07-20] MEDS: QUETIAPINE FUMARATE 25 MG TABLET PO SCH (21:06)
[2019-07-20] MEDS: METOPROLOL TARTRATE 25 MG TAB PO SCH (21:23)
[2019-07-20] MEDS: INSULIN HUMAN NPH SC SCH (21:27)
[2019-07-20] MEDS: ACETAMINOPHEN 325 MG TAB PO PRN (21:43)
[2019-07-21] MEDS ORDERED: Nursing to Pharmacy Communication ONE ×2 (00:20→12:04)
[2019-07-21] MEDS: LEVOTHYROXINE SODIUM 125 MCG TABLET PO SCH (05:43)
[2019-07-21] MEDS: INSULIN ASPART 100 UNITS/ML 3 ML PEN SC SCH ×5 (05:50→21:13)
[2019-07-21] MEDS: INSULIN HUMAN NPH SC SCH ×3 (05:50→18:20)
[2019-07-21 06:34] LABS: Hematocrit (blood only) 27.6 % (37-47); Hemoglobin 8.8 g/dL (12.0-16.0); Mean Corpuscular Hemoglobin 28.5 pg (25-34); Mean Corpuscular Hgb Conc 31.9 g/dL (32-36); Mean Corpuscular Volume 89.3 fL (80-100); Mean Platelet Volume 9.1 fL (7.4-10.4); Platelet Count 166 K/uL (130-400); RDW Coefficient of Variation 14.3 % (11.5-14.5); RDW Standard Deviation 47.2 fL (36.4-46.3); Red Blood Count 3.09 M/uL (4.2-5.4); White Blood Count 9.07 K/uL (4.8-10.8)
[2019-07-21 07:11] LABS: BUN Creatinine Ratio 17.1 (10-20); Calcium 8.5 mg/dl (8.5-10.1); Creatinine Clr Calc Pharmacy 40.4 ml/min; Est GFR (African American) 39.3; Est GFR (Non-African American) 33.9; Potassium 3.8 mmol/L (3.5-5.1)
[2019-07-21 07:16] LABS: Estimated Average Glucose 166 mg/dl; Hemoglobin A1C 7.4 % (4.5-5.6)
[2019-07-21] MEDS: BUDESONIDE/FORMOTEROL FUMARATE 160/4.5 60 PUFFS/INHALER INH SCH ×2 (07:44→20:21)
[2019-07-21] MEDS: ACETAMINOPHEN 325 MG TAB PO PRN (07:44)
[2019-07-21] MEDS: MUPIROCIN 2% OINT 22 GM TUBE EXT SCH ×2 (07:45→20:22)
[2019-07-21] MEDS: GABAPENTIN 100 MG CAP PO SCH ×2 (07:46→20:22)
[2019-07-21] MEDS: METOPROLOL TARTRATE 25 MG TAB PO SCH ×2 (07:46→20:21)
[2019-07-21] MEDS: ESCITALOPRAM OXALATE 20 MG TAB PO SCH (07:46)
[2019-07-21] MEDS: DOCUSATE SODIUM/SENNA 50/8.6MG TAB PO SCH (07:47)
[2019-07-21] MEDS ORDERED: POLYETHYLENE (MIRALAX) 17 GM PACK ONE (07:50)
[2019-07-21] MEDS: POLYETHYLENE (MIRALAX) 17 GM PACK PO SCH (07:52)
[2019-07-21] MEDS: CHOLECALCIFEROL 1,000 UNITS TAB PO SCH (07:52)
--- NOTE | 2019-07-21 08:50 | Hospitalist Progress Note ---
Date of Service July 21, 2019 Assessment & Plan (1) Bilateral humeral fractures: Bilateral humeral fractures after mechanical fall. Orthopedic Surgery consulted. Check vitamin D level with next labs. (2) Hypertension: Continue metoprolol and losartan. (3) COPD (chronic obstructive pulmonary disease): Respiratory status stable. Continue Symbicort and nebulizer treatments PRN. (4) Chronic respiratory failure with hypoxia and hypercapnia: Chronic hypoxic respiratory failure secondary to COPD, on home O2 2 L/min. Continue supplemental oxygen. (5) CKD (chronic kidney disease) stage 3, GFR 30-59 ml/min: History of CKD stage III. Creatinine at time of admission 1.2. Creatinine today = 1.46. Watch volume status. Best to avoid nonsteroidal anti-inflammatory drugs if possible. (6) Diabetes mellitus, type II: Diabetes mellitus type 2 managed with insulin 70/30 mix. Hemoglobin A1c 7.4. Fasting blood sugar this morning 105. Currently receiving NPH BID with NovoLog coverage as necessary. (7) Hypothyroidism: TSH 0.56. Continue levothyroxine. (8) Abnormal urinalysis: Admission UA showed 1+ blood, 2+ leukocyte esterase, 5-10 WBCs, 10-30 RBCs, 5-10 hyaline casts, many epithelial cells, 1+ bacteria. May or may not have urinary tract infection. Afebrile. Urine culture pending. Receiving empiric therapy with ceftriaxone pending culture results. (9) DVT prophylaxis: Teds, SCDs, enoxaparin. (10) Discharge planning issues: Anticipated need for skilled care. Consult Case Management. Primary care follow-up with Dr. Nicole Adams. Subjective Recheck for humeral fractures and other problems. Patient seen in their room around 0820. Admitted yesterday with bilateral humeral fractures after mechanical fall. Still having significant pain. Review of Systems: Constitutional- no fever. Cardiac- no chest pain. Pulmonary- pulmonary status stable; no cough or SOB at rest. GI- no nausea, vomiting, diarrhea, melena, hematochezia. - no urinary symptoms. Otherwise, as noted above. Physical Exam Constitutional: no acute distress ENMT: Nose: + external nose abnormality (NC @ 4 LPM) Respiratory: no respiratory distress Auscultation: lungs clear to auscultation bilaterally Cardiovascular: Rate/Rhythm: regular rate and regular rhythm Heart Sounds: no gallop, no murmur and no cardiac rub Vessels: no JVD Extremities: no calf tenderness and no edema Gastrointestinal (Abdomen): normal bowel sounds, soft, nontender, no hepatosplenomegaly Musculoskeletal: Extremities: + lower leg abnormality (TEDS and SCD's applied); + extremities abnormal to inspection (upper extremities immobilized in slings; fingers warm with good cap refill) Skin: no rashes, warm and dry Psychiatric: Orientation: alert and oriented x 3 Results & Data Vital Signs (Past 12 Hours) Vital Signs Temp Pulse Pulse Resp BP BP Pulse Ox 07/21/19 07:48 36.9 C 82 16 164/66 H 97 07/21/19 01:20 86 20 125/78 96 07/20/19 22:52 37.1 C 88 18 95/53 L 95 07/20/19 21:21 37 C 108 H 16 149/79 H 94 Laboratory Results 07/21/19 05:45 07/21/19 05:45 (1) Bilateral humeral fractures Encounter type: initial encounter Fracture type: closed Qualified Code(s): S42.301A - Unspecified fracture of shaft of humerus, right arm, initial encounter for closed fracture; S42.302A - Unspecified fracture of shaft of humerus, left arm, initial encounter for closed fracture
[2019-07-21] MEDS ORDERED: HYDROmorphone INJ 1 MG/ML SYRINGE IV PRN (08:52)
[2019-07-21] MEDS: MoRPHine SULFATE 4 MG/ML 1 ML CARP\\VIAL IV PRN (08:55)
--- NOTE | 2019-07-21 09:53 | Orthopedic Consultation ---
Date of Consultation July 21, 2019 Assessment & Plan (1) Proximal humerus fracture: Bilateral proximal humerus fractures. Amenable to conservative treatment at this time. Will need sling immobilization and nonweightbearing bilateral upper extremities. Maximal assistance with ADLs. May remove sling for hygiene purposes and for gentle passive range of motion of the elbow and wrist bilateral upper extremities. Ice to bilateral shoulders. Pain controlled on current pain medicine. Will add Lidoderm patch. Patient will need to follow-up in the office in 1 to 2 weeks for repeat x-rays, . Thank you for the consultation. History of Present Illness Reason for Consultation: Bilateral proximal humerus fractures Attending Physician: Boston Larson MD History of Present Illness The patient is a 78-year-old female who presented to [facility] emergency department on 07/20/2019 after sustaining a mechanical fall from standing height. X-rays bilateral shoulders demonstrate nondisplaced bilateral proximal humerus fractures. She was subsequently admitted for further inpatient observation and treatment. Patient does admit to hitting her head however denies loss of consciousness. Scans in the emergency department of the head were negative. She denies any numbness or tingling bilateral upper extremities. Denies any associated injuries. Allergies Allergy/AdvReac Type Severity Reaction Status Date / Time Sulfa (Sulfonamide Allergy Intermediate HIVES Verified 07/20/19 14:20 Antibiotics) Home Medications Home Medications Medication Instructions Recorded Confirmed Type albuterol sulfate 90 mcg/actuation 2 puffs INH Q4H PRN gm 06/22/19 07/20/19 History aerosol inhaler budesonide-formoterol HFA 160 2 puffs INH BID 06/22/19 07/20/19 History mcg-4.5 mcg/actuation aerosol inhaler cholecalciferol (vitamin D3) 1,000 1,000 units PO QAM 06/22/19 07/20/19 History unit capsule escitalopram oxalate 20 mg tablet 20 mg PO QAM tab 06/22/19 07/20/19 History insulin human U-100 NPH-regulr 1 sliding scale dose SQ 06/22/19 07/20/19 History 70-30 mix 100 unit/mL subcutaneous USEASDIRECTD susp metoprolol tartrate 25 mg tablet 25 mg PO BID 06/22/19 07/21/19 History quetiapine 25 mg tablet 25 mg PO HS tab 06/22/19 07/20/19 History acetaminophen [Tylenol Extra 500 mg PO Q6H PRN 07/20/19 07/20/19 History Strength] gabapentin See Rx Instructions .ROUTE .COMPLEX 07/20/19 07/21/19 History levothyroxine 100 mcg PO DAILY 07/20/19 07/21/19 History losartan 100 mg PO DAILY 07/20/19 07/20/19 History torsemide 20 mg PO DAILY 07/20/19 07/20/19 History Patient History Medical History Chronic respiratory failure with hypoxia and hypercapnia CKD (chronic kidney disease) stage 3, GFR 30-59 ml/min COPD (chronic obstructive pulmonary disease) Depression (Chronic) Diabetes mellitus, type II (Chronic) Femur fracture (Acute) Hip fracture (Acute) History of DVT (deep vein thrombosis) (Chronic) Hypertension (Chronic) Hypothyroidism (Chronic) Panic attacks (Chronic) Surgical History History of cholecystectomy History of partial thyroidectomy History of tonsillectomy and adenoidectomy History of total left hip arthroplasty Status post cholecystectomy (Chronic) Status post hysterectomy (Chronic) Family History Other No pertinent family history in first degree relatives Social History Preferred Language: Russian Communication Ability: Effective Radiopharmacist Required: No Beliefs That Will Affect Care: Jehovah'S Witness Jehovah'S Witness Beliefs: shinto marital status: Current Living Situation: Spouse Other Information That Helps Us Care for You: No Feels Safe at Home: Yes Safety Concerns: Feels Safe At This Time Smoking Status: Never smoker Do You Dip or Chew Tobacco: No ; Hx Alcohol Use: No Hx Substance Use: No Review of Systems Review of Systems: All systems reviewed & are unremarkable except as noted in HPI & below Constitutional: as per Subjective / HPI Physical Exam Physical Exam: Bilateral upper extremity physical exam is neurovascular sensory intact grossly. +2 radial pulse, compartments soft nontender, skin overlying bilateral shoulders clean dry and intact. Tenderness to palpation bilateral proximal humerus. Positive edema. Sling immobilization bilateral upper extremities intact. Constitutional: WD/WN, vitals as above Results & Data Vital Signs (Past 12 Hours) Vital Signs Temp Pulse Pulse Resp BP BP Pulse Ox 07/21/19 07:48 36.9 C 82 16 164/66 H 97 07/21/19 01:20 86 20 125/78 96 07/20/19 22:52 37.1 C 88 18 95/53 L 95 Diagnostic Findings XR shoulder LT min 2V routine CLINICAL HISTORY: Left shoulder pain status post trauma COMPARISON: None. DISCUSSION: Arthritic changes are present. There is equivocal nondisplaced impacted proximal humeral fracture. No dislocation is visualized. Additional imaging could be obtained for further evaluation as deemed clinically necessary. IMPRESSION: 1. Equivocal nondisplaced impacted proximal humeral fracture. No dislocation. RIGHT SHOULDER 3 VIEWS HISTORY: Right shoulder pain. fall COMPARISON: None. FINDINGS: The right clavicle is intact. No dislocation. Slightly impacted transverse fractures through the right humeral neck which extends to the greater tuberosity. The bones are osteopenic. Soft tissue swelling within the shoulder. No radiopaque foreign bodies. IMPRESSION: Right humeral head/neck fracture. No dislocation. RIGHT HAND 3 VIEWS HISTORY: Right hand pain around 1st MC, fall COMPARISON: None. FINDINGS: Moderate degenerative changes throughout the hand and wrist. No acute fracture or dislocation. Mild soft tissue swelling within the hand. The bones are osteopenic. Chondrocalcinosis within the wrist. No radiopaque foreign bodies. IMPRESSION: No acute fracture or dislocation within the right hand.
--- NOTE | 2019-07-21 10:08 | XRay Report ---
XR chest 1V portable HISTORY: Shortness of breath. COPD COMPARISON: Chest 05/14/2015. FINDINGS: No pneumothorax. No pleural effusions. The heart is normal in size. Low lung volumes. A few left basilar linear densities. Otherwise, lungs are clear. No evidence for pulmonary edema. Bilatera l humeral neck fractures are again noted. IMPRESSION: 1. Low lung volumes with left basilar linear densities suggesting subsegmental atelectasis. 2. Bilateral humeral neck fractures are again noted. Electronically signed by: Alexander Calderon M.D. 07/21/2019 10:06 AM
[2019-07-21] MEDS: ACETAMINOPHEN 500 MG TAB PO SCH ×3 (10:11→21:21)
[2019-07-21] MEDS: LOSARTAN POTASSIUM 50 MG TAB PO SCH (10:12)
[2019-07-21] MEDS: LIDOCAINE 5% 1 PATCH TD SCH (11:27)
[2019-07-21] MEDS ORDERED: HYDROmorphone INJ 0.5 MG/0.5 ML SYR IV PRN (16:03)
[2019-07-21] MEDS: cefTRIAXone SODIUM 2,000 MG in DEXTROSE 5% 50 ML IV SCH (20:09)
[2019-07-21] MEDS: QUETIAPINE FUMARATE 25 MG TABLET PO SCH (20:21)
[2019-07-21] MEDS: ENOXAPARIN INJ 40 MG/0.4 ML SYR SQ SCH (20:22)
[2019-07-21] MEDS: TRAMADOL HCL 50 MG TABLET PO PRN (23:32)
[2019-07-22] MEDS: TRAMADOL HCL 50 MG TABLET PO PRN ×3 (05:30→23:12)
[2019-07-22] MEDS: LEVOTHYROXINE SODIUM 125 MCG TABLET PO SCH (05:30)
[2019-07-22] MEDS: ACETAMINOPHEN 500 MG TAB PO SCH ×3 (05:30→21:38)
[2019-07-22 05:31] LABS: Hematocrit (blood only) 26.7 % (37-47); Hemoglobin 8.3 g/dL (12.0-16.0); Mean Corpuscular Hemoglobin 27.9 pg (25-34); Mean Corpuscular Hgb Conc 31.1 g/dL (32-36); Mean Corpuscular Volume 89.9 fL (80-100); Mean Platelet Volume 8.6 fL (7.4-10.4); Platelet Count 143 K/uL (130-400); RDW Coefficient of Variation 14.3 % (11.5-14.5); RDW Standard Deviation 47.2 fL (36.4-46.3); Red Blood Count 2.97 M/uL (4.2-5.4); White Blood Count 8.37 K/uL (4.8-10.8)
[2019-07-22] MEDS: INSULIN HUMAN NPH SC SCH ×2 (05:31→17:52)
[2019-07-22 05:58] LABS: BUN Creatinine Ratio 21.6 (10-20); Calcium 8.1 mg/dl (8.5-10.1); Creatinine Clr Calc Pharmacy 40.4 ml/min; Est GFR (African American) 39.3; Est GFR (Non-African American) 33.9; Potassium 3.9 mmol/L (3.5-5.1)
[2019-07-22] MEDS: POLYETHYLENE (MIRALAX) 17 GM PACK PO SCH (08:56)
[2019-07-22] MEDS: METOPROLOL TARTRATE 25 MG TAB PO SCH ×2 (08:58→21:38)
[2019-07-22] MEDS: LOSARTAN POTASSIUM 50 MG TAB PO SCH (08:58)
[2019-07-22] MEDS: ESCITALOPRAM OXALATE 20 MG TAB PO SCH (08:58)
[2019-07-22] MEDS: GABAPENTIN 100 MG CAP PO SCH ×2 (09:00→21:38)
[2019-07-22] MEDS: CHOLECALCIFEROL 1,000 UNITS TAB PO SCH (09:01)
[2019-07-22] MEDS: BUDESONIDE/FORMOTEROL FUMARATE 160/4.5 60 PUFFS/INHALER INH SCH ×2 (09:01→21:37)
[2019-07-22] MEDS: DOCUSATE SODIUM/SENNA 50/8.6MG TAB PO SCH (09:01)
[2019-07-22] MEDS: INSULIN ASPART 100 UNITS/ML 3 ML PEN SC SCH ×4 (09:10→21:49)
[2019-07-22 09:59] LABS: Folate (Folic Acid) 18.55 ng/ml (>5.38)
--- NOTE | 2019-07-22 13:31 | Hospitalist Progress Note ---
Date of Service July 22, 2019 Assessment & Plan (1) Bilateral humeral fractures: Bilateral humeral fractures after mechanical fall. Orthopedic Surgery consulted. Nonoperative management recommended: sling immobilization non-weight bearing upper extremities may remove sling for hygiene purposes and gentle passive ROM of elbows and wrists ice to shoulders Ortho f/u in clinic in 1-2 weeks. Management of osteoporosis as discussed below. (2) Osteoporosis: Bilateral humeral fractures. Vitamin D level = 16.9. Calcium + vitamin D supplements. Outpatient bone density measurement. (3) Hypertension: Continue metoprolol and losartan. (4) COPD (chronic obstructive pulmonary disease): Respiratory status stable. Continue Symbicort and nebulizer treatments PRN. (5) Chronic respiratory failure with hypoxia and hypercapnia: Chronic hypoxic respiratory failure secondary to COPD, on home O2 2 L/min. Continue supplemental oxygen. (6) CKD (chronic kidney disease) stage 3, GFR 30-59 ml/min: History of CKD stage III. Creatinine at time of admission 1.2. Creatinine today = 1.46. Watch volume status. Best to avoid nonsteroidal anti-inflammatory drugs if possible. (7) Diabetes mellitus, type II: Diabetes mellitus type 2 managed with insulin 70/30 mix. Hemoglobin A1c 7.4. Fasting blood sugar this morning 135. Currently receiving NPH BID with NovoLog coverage as necessary. (8) Hypothyroidism: TSH 0.56. Continue levothyroxine. (9) Abnormal urinalysis: Admission UA showed 1+ blood, 2+ leukocyte esterase, 5-10 WBCs, 10-30 RBCs, 5-10 hyaline casts, many epithelial cells, 1+ bacteria. May or may not have urinary tract infection. Afebrile. Receiving empiric therapy with ceftriaxone pending culture results. Urine culture growing more than 3 types of organisms, probable contamination. DC ceftriaxone. (10) Anemia: Hgb at time of admission 9.4. MCV 88. Hgb 9.4 --> 8.8 --> 8.3. Fe 21, transferrin 159, transferrin sat 9%. B12 371. Folate 18. Appears that patient has chronic Fe deficiency anemia. May have acute blood loss as well, possibly secondary to trauma. Check stools for OB. Start FeSO4. Follow H/H. Consider eventual endoscopic GI evaluation if not recently done and medical status allows. (11) DVT prophylaxis: Teds, SCDs, enoxaparin. (12) Discharge planning issues: Anticipated need for skilled care. Consult Case Management. Primary care follow-up with Dr. Nicole Adams. Subjective Recheck for humeral fractures and other problems. Patient seen in their room around 0930. Should pain somewhat better; analgesics help. [place] cath placed yesterday because of decreased mobility. No new problems. Review of Systems: Constitutional- no fever. Cardiac- no chest pain. Pulmonary- pulmonary status stable; no cough or SOB at rest. GI- no nausea, vomiting, diarrhea, melena, hematochezia. - as noted above. Otherwise, as noted above. Physical Exam Constitutional: no acute distress ENMT: Nose: + external nose abnormality (NC @ 4 LPM) Respiratory: no respiratory distress Auscultation: lungs clear to auscultation bilaterally Cardiovascular: Rate/Rhythm: regular rate and regular rhythm Heart Sounds: no gallop, no murmur and no cardiac rub Vessels: no JVD Extremities: no calf tenderness and no edema Gastrointestinal (Abdomen): normal bowel sounds, soft, nontender, no hepatosplenomegaly Musculoskeletal: Extremities: + lower leg abnormality (TEDS and SCD's applied); + extremities abnormal to inspection (upper extremities immobilized in slings; fingers warm with good cap refill) Skin: no rashes, warm and dry Psychiatric: Orientation: alert and oriented x 3 Results & Data Vital Signs (Past 12 Hours) Vital Signs Temp Pulse Resp BP Pulse Ox 07/22/19 07:31 36.4 C L 76 18 146/68 H 99 Laboratory Results 07/22/19 05:14 07/22/19 05:14 (1) Bilateral humeral fractures Encounter type: initial encounter Fracture type: closed Qualified Code(s): S42.301A - Unspecified fracture of shaft of humerus, right arm, initial encounter for closed fracture; S42.302A - Unspecified fracture of shaft of humerus, left arm, initial encounter for closed fracture
[2019-07-22] MEDS ORDERED: ERGOCALCIFEROL 50,000 UNITS CAP PO ONE (14:00)
[2019-07-22] MEDS: LIDOCAINE 5% 1 PATCH TD SCH (14:37)
[2019-07-22] MEDS: MUPIROCIN 2% OINT 22 GM TUBE EXT SCH ×2 (14:38→21:38)
[2019-07-22] MEDS: cefTRIAXone SODIUM 2,000 MG in DEXTROSE 5% 50 ML IV SCH (19:35)
[2019-07-22] MEDS: ENOXAPARIN INJ 40 MG/0.4 ML SYR SQ SCH (21:38)
[2019-07-22] MEDS: QUETIAPINE FUMARATE 25 MG TABLET PO SCH (21:38)
[2019-07-22] MEDS: CALCIUM CARBONATE 1250MG TAB PO SCH (21:38)
[2019-07-23 05:28] LABS: Hemoglobin 8.5 g/dL (12.0-16.0); Mean Corpuscular Hemoglobin 27.7 pg (25-34); Mean Corpuscular Hgb Conc 31.5 g/dL (32-36); Mean Corpuscular Volume 87.9 fL (80-100); Mean Platelet Volume 9.3 fL (7.4-10.4); Platelet Count 178 K/uL (130-400); RDW Coefficient of Variation 14.2 % (11.5-14.5); RDW Standard Deviation 45.8 fL (36.4-46.3); Red Blood Count 3.07 M/uL (4.2-5.4); White Blood Count 9.18 K/uL (4.8-10.8)
[2019-07-23 05:32] LABS: BUN Creatinine Ratio 22.7 (10-20); Calcium 8.6 mg/dl (8.5-10.1); Creatinine Clr Calc Pharmacy 54.6 ml/min; Est GFR (African American) 56.5; Est GFR (Non-African American) 48.8; Potassium 4.1 mmol/L (3.5-5.1)
[2019-07-23] MEDS: ACETAMINOPHEN 500 MG TAB PO SCH ×3 (05:40→22:43)
[2019-07-23] MEDS: LEVOTHYROXINE SODIUM 125 MCG TABLET PO SCH (05:40)
[2019-07-23] MEDS: INSULIN HUMAN NPH SC SCH ×2 (05:41→17:13)
[2019-07-23] MEDS: MUPIROCIN 2% OINT 22 GM TUBE EXT SCH ×2 (09:09→21:22)
[2019-07-23] MEDS: ESCITALOPRAM OXALATE 20 MG TAB PO SCH (09:10)
[2019-07-23] MEDS: CHOLECALCIFEROL 1,000 UNITS TAB PO SCH (09:10)
[2019-07-23] MEDS: GABAPENTIN 100 MG CAP PO SCH ×2 (09:10→21:08)
[2019-07-23] MEDS: POLYETHYLENE (MIRALAX) 17 GM PACK PO SCH (09:10)
[2019-07-23] MEDS: LOSARTAN POTASSIUM 50 MG TAB PO SCH (09:10)
[2019-07-23] MEDS: METOPROLOL TARTRATE 25 MG TAB PO SCH ×2 (09:10→21:11)
[2019-07-23] MEDS: CALCIUM CARBONATE 1250MG TAB PO SCH ×2 (09:10→21:12)
[2019-07-23] MEDS: LIDOCAINE 5% 1 PATCH TD SCH (09:11)
[2019-07-23] MEDS: DOCUSATE SODIUM/SENNA 50/8.6MG TAB PO SCH (09:12)
[2019-07-23] MEDS: BUDESONIDE/FORMOTEROL FUMARATE 160/4.5 60 PUFFS/INHALER INH SCH ×2 (09:12→21:12)
[2019-07-23] MEDS: INSULIN ASPART 100 UNITS/ML 3 ML PEN SC SCH ×4 (09:13→21:14)
[2019-07-23] MEDS: TRAMADOL HCL 50 MG TABLET PO PRN (12:06)
[2019-07-23] MEDS: FERROUS SULFATE 325 MG TAB PO SCH (13:12)
--- NOTE | 2019-07-23 16:04 | Hospitalist Progress Note ---
Date of Service July 23, 2019 Assessment & Plan (1) Bilateral humeral fractures: S/P mechanical fall. Left shoulder xray showed equivocal nondisplaced impacted proximal humeral fracture. Right shoulder showed right humeral head/neck fracture. Orthopedic on board Nonoperative conservative management Continue sling immobilization and non-weight bearing upper extremities May remove sling for hygiene purposes and gentle passive ROM of elbows and wrists Continue pain control Follow up with Ortho clinic in 1-2 weeks with repeat xray Fall precaution Waiting for placement (2) Osteoporosis: Osteoporosis with current pathological fracture of bilateral prox humerus Bilateral humeral fractures. Vitamin D level 16.9. Continue Calcium + vitamin D supplements. Outpatient bone density measurement. (3) Hypertension: Continue metoprolol and losartan. (4) COPD (chronic obstructive pulmonary disease): (5) Chronic respiratory failure with hypoxia and hypercapnia: No respiratory distress Continue Symbicort and nebulizer treatments PRN. Continue supplemental oxygen. Stable (6) CKD (chronic kidney disease) stage 3, GFR 30-59 ml/min: History of CKD stage III. Creatinine at time of admission 1.2. Creatinine today 1.08 Avoid nephrotoxic agents (7) Diabetes mellitus, type II: Diabetes mellitus type 2 managed with insulin 70/30 mix. Hemoglobin A1c 7.4. On NPH BID with NovoLog coverage as necessary. Continue monitor BS (8) Hypothyroidism: TSH 0.56. Continue levothyroxine. (9) Abnormal urinalysis: UA positive for leukocytes and bacteria on admission Urine culture growing more than 3 types of organisms, probable contamination. Afebrile and leukocytosis wnl Received IV ceftriaxone 3 doses, will d/c ceftriaxone (10) Anemia: Hgb at time of admission 9.4. MCV 88. Hgb 9.4 --> 8.8 --> 8.3-->8.5 Fe 21, transferrin 159, transferrin sat 9%. B12 371. Folate 18. Appears that patient has chronic Fe deficiency anemia. Will need outpatient GI work up Continue iron supplement Monitor CBC (11) DVT prophylaxis: Teds, SCDs, enoxaparin. (12) Discharge planning issues: Anticipated need for skilled care. Consult Case Management. Primary care follow-up with Dr. Nicole Adams. Subjective Pt was seen and examined Sitting in chair with no distress with daughter and present Pain is control Denies any chest pain, palpitation and SOB Physical Exam Physical Exam: General- No acute distress Head- atraumatic Eyes- PERRL, EOMI, ENT- oropharynx clear Neck- supple, no JVD Lungs- clear to auscultation Heart- regular rhythm; no murmur Abdomen- normal bowel sounds, soft, nontender Extremities- no calf tenderness, +slings in both upper extremities Neuro- alert, oriented x 3; PERRL, EOMI; no facial palsy; no dysarthria Skin- warm & dry Results & Data Vital Signs (Past 12 Hours) Vital Signs Temp Pulse Pulse Resp BP BP Pulse Ox 07/23/19 15:16 37.3 C 83 16 142/78 H 90 07/23/19 12:10 37 C 81 14 145/74 H 93 07/23/19 08:46 36.5 C 83 18 154/75 H 94 (1) Bilateral humeral fractures Encounter type: initial encounter Fracture type: closed Qualified Code(s): S42.301A - Unspecified fracture of shaft of humerus, right arm, initial encounter for closed fracture; S42.302A - Unspecified fracture of shaft of humerus, left arm, initial encounter for closed fracture
[2019-07-23] MEDS: ENOXAPARIN INJ 40 MG/0.4 ML SYR SQ SCH (21:07)
[2019-07-23] MEDS: EUCERIN CR 120 GM JAR EXT SCH (21:07)
[2019-07-23] MEDS: QUETIAPINE FUMARATE 25 MG TABLET PO SCH (21:12)
[2019-07-24] MEDS: TRAMADOL HCL 50 MG TABLET PO PRN ×2 (02:28→11:55)
[2019-07-24] MEDS ORDERED: Nursing to Pharmacy Communication ONE (06:27)
[2019-07-24] MEDS: ACETAMINOPHEN 500 MG TAB PO SCH ×3 (06:32→22:07)
[2019-07-24] MEDS: LEVOTHYROXINE SODIUM 125 MCG TABLET PO SCH (06:32)
[2019-07-24] MEDS: BUDESONIDE/FORMOTEROL FUMARATE 160/4.5 60 PUFFS/INHALER INH SCH ×2 (07:40→20:18)
[2019-07-24] MEDS: INSULIN HUMAN NPH SC SCH ×2 (08:46→17:09)
[2019-07-24] MEDS: CHOLECALCIFEROL 1,000 UNITS TAB PO SCH (08:53)
[2019-07-24] MEDS: ESCITALOPRAM OXALATE 20 MG TAB PO SCH (08:53)
[2019-07-24] MEDS: GABAPENTIN 100 MG CAP PO SCH ×2 (08:54→20:17)
[2019-07-24] MEDS: CALCIUM CARBONATE 1250MG TAB PO SCH ×2 (08:55→20:18)
[2019-07-24] MEDS: POLYETHYLENE (MIRALAX) 17 GM PACK PO SCH (08:56)
[2019-07-24] MEDS: DOCUSATE SODIUM/SENNA 50/8.6MG TAB PO SCH (08:56)
[2019-07-24] MEDS: MUPIROCIN 2% OINT 22 GM TUBE EXT SCH ×2 (09:01→20:17)
[2019-07-24] MEDS: EUCERIN CR 120 GM JAR EXT SCH ×2 (09:01→20:17)
[2019-07-24] MEDS: METOPROLOL TARTRATE 25 MG TAB PO SCH ×2 (09:06→20:19)
[2019-07-24] MEDS: LOSARTAN POTASSIUM 50 MG TAB PO SCH (09:07)
[2019-07-24] MEDS: INSULIN ASPART 100 UNITS/ML 3 ML PEN SC SCH ×4 (09:10→20:20)
[2019-07-24] MEDS: LIDOCAINE 5% 1 PATCH TD SCH (09:15)
[2019-07-24 10:34] LABS: Blood Urea Nitrogen 23 mg/dl (7-18); Calcium 9.6 mg/dl (8.5-10.1); Carbon Dioxide 32 mmol/L (21-32); Chloride 97 mmol/L (98-107); Creatinine Clr Calc Pharmacy 61.4 ml/min; Est GFR (African American) 65.2; Est GFR (Non-African American) 56.2; Glucose 210 mg/dl (70-99); Potassium 3.9 mmol/L (3.5-5.1); Sodium 136 mmol/L (136-145)
[2019-07-24 10:38] LABS: Troponin I < 0.015 ng/ml (0-0.045)
[2019-07-24] MEDS ORDERED: SODIUM CHLORIDE 0.9% 500 ML IV ONE (11:15)
[2019-07-24] MEDS ORDERED: METOPROLOL TARTRATE 1 MG/ML VIAL IV STA (11:18)
[2019-07-24] MEDS ORDERED: dilTIAZem HCl 5 MG/ML 5 ML VIAL IV PRN (11:30)
[2019-07-24 11:37] LABS: Hematocrit (blood only) 28.1 % (37-47); Hemoglobin 9.1 g/dL (12.0-16.0); Mean Corpuscular Hemoglobin 28.3 pg (25-34); Mean Corpuscular Hgb Conc 32.4 g/dL (32-36); Mean Corpuscular Volume 87.5 fL (80-100); Mean Platelet Volume 9.2 fL (7.4-10.4); Platelet Count 199 K/uL (130-400); RDW Coefficient of Variation 14.2 % (11.5-14.5); RDW Standard Deviation 45.2 fL (36.4-46.3); Red Blood Count 3.21 M/uL (4.2-5.4); White Blood Count 8.47 K/uL (4.8-10.8)
[2019-07-24] MEDS ORDERED: Heparin IV Standard *NO* Bolus IV SCH (11:56)
[2019-07-24] MEDS: FERROUS SULFATE 325 MG TAB PO SCH (11:56)
[2019-07-24] MEDS ORDERED: dilTIAZem HCl 125 MG in DEXTROSE 5% 100 ML IV PRN (12:00)
[2019-07-24] MEDS: HEPARIN SODIUM/DEXTROSE 25,000 UNITS/500 ML BAG IV SCH (13:18)
[2019-07-24 13:40] LABS: INR 1.1 (0.9-1.1); Partial Thromboplastin Time 27.2 Seconds (21.0-31.0); Prothrombin Time 11.1 Seconds (9.0-12.0)
--- NOTE | 2019-07-24 16:33 | Cardiology Consultation ---
Date of Consultation July 24, 2019 Assessment & Plan (1) Atrial fibrillation with rapid ventricular response: Asymptomatic 5 mg and should she remain in sinus rhythm then a Cardizem drip will be initiated. No documented history of atrial arrhythmias however given her chronic O2 dependence the likelihood is very high. At this time we will give her IV metoprolol There are no contraindications from the orthopedic standpoint and IV heparin will be initiated at this time. However, given the patient's history of recurrent falls and the fact that she has an obsessive disorder with picking at her skin causing recurrent lesions I do not believe she is a long-term anticoagulation candidate. She agrees with this and states that she does fall often. Obviously given her inability to anticoagulate even for a 30-day window antiarrhythmic therapy would not be indicated at this time. (2) Proximal humerus fracture: Status post fall (3) Skin excoriation: I believe this further supports that she is not an anticoagulation candidate. (4) Fall: Recurrent History of Present Illness Reason for Consultation: Atrial fibrillation with rapid ventricular response Requesting Physician: Dr. Simpson Attending Physician: Zain Simpson MD History of Present Illness Is my pleasure to see Ms. Chinchilla in consultation today 07/24/2019. She is a very pleasant 78-year-old woman who was originally admitted to [facility] after she suffered a traumatic fall after tripping over her oxygen hose. She ultimately suffered bilateral humeral fractures and was seen by orthopedics. Medical therapy was recommended and she was being followed on the medical unit. During morning vital signs checks on the her heart rate was significantly elevated and an EKG was performed which revealed atrial fibrillation with rapid ventricular response. At that time she was asymptomatic and denied any chest pain, shortness of breath, palpitations, lightheadedness, dizziness or syncope. She did state that she was very anxious at that time. She was ultimately transferred to the telemetry unit. She states that she does fall often and has had a previous hip fracture from a fall as well including the recent fracture status post fall. She is on chronic O2 at home. She has no history of any atrial arrhythmias or any cardiac pathophysiology. 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 Allergies Allergy/AdvReac Type Severity Reaction Status Date / Time Sulfa (Sulfonamide Allergy Intermediate HIVES Verified 07/20/19 14:20 Antibiotics) Home Medications Home Medications Medication Instructions Recorded Confirmed Type albuterol sulfate 90 mcg/actuation 2 puffs INH Q4H PRN gm 06/22/19 07/20/19 History aerosol inhaler budesonide-formoterol HFA 160 2 puffs INH BID 06/22/19 07/20/19 History mcg-4.5 mcg/actuation aerosol inhaler cholecalciferol (vitamin D3) 1,000 1,000 units PO QAM 06/22/19 07/20/19 History unit capsule escitalopram oxalate 20 mg tablet 20 mg PO QAM tab 06/22/19 07/20/19 History insulin human U-100 NPH-regulr 1 sliding scale dose SQ 06/22/19 07/20/19 History 70-30 mix 100 unit/mL subcutaneous USEASDIRECTD susp metoprolol tartrate 25 mg tablet 25 mg PO BID 06/22/19 07/21/19 History quetiapine 25 mg tablet 25 mg PO HS tab 06/22/19 07/20/19 History acetaminophen [Tylenol Extra 500 mg PO Q6H PRN 07/20/19 07/20/19 History Strength] gabapentin See Rx Instructions .ROUTE .COMPLEX 07/20/19 07/21/19 History levothyroxine 100 mcg PO DAILY 07/20/19 07/21/19 History losartan 100 mg PO DAILY 07/20/19 07/20/19 History torsemide 20 mg PO DAILY 07/20/19 07/20/19 History Patient History Medical History Chronic respiratory failure with hypoxia and hypercapnia CKD (chronic kidney disease) stage 3, GFR 30-59 ml/min COPD (chronic obstructive pulmonary disease) Depression (Chronic) Diabetes mellitus, type II (Chronic) Femur fracture (Acute) Hip fracture (Acute) History of DVT (deep vein thrombosis) (Chronic) Hypertension (Chronic) Hypothyroidism (Chronic) Osteoporosis Panic attacks (Chronic) Surgical History History of cholecystectomy History of partial thyroidectomy History of tonsillectomy and adenoidectomy History of total left hip arthroplasty Status post cholecystectomy (Chronic) Status post hysterectomy (Chronic) Family History Other No pertinent family history in first degree relatives Social History Preferred Language: Serbian Communication Ability: Effective 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 No acute distress. HEENT: Normocephalic, atraumatic. Pupils equal, round and reactive to light and accommodation. Extraocular muscles are intact. Anicteric sclera. Moist mucous membranes. Neck: No JVD. No bruit. Cardiovascular: irregularly irregular, unable to appreciate murmur, rub or gallop. Pulmonary: Clear to auscultation bilaterally. No rales, rhonchi, or wheezing. Abdomen: Bowel sounds x 4, soft. No rebound, guarding or tenderness. No organomegaly. Extremities: No clubbing, cyanosis or edema. +2 pedal pulses bilaterally. Skin: Warm and dry. Diffuse whole body nonbleeding small ulcers. Results & Data Vital Signs (Past 12 Hours) Vital Signs Temp Pulse Pulse Pulse Resp BP BP 07/24/19 16:11 83 07/24/19 15:43 36.8 C 83 20 148/77 H 07/24/19 13:17 85 07/24/19 11:53 133 H 119/78 07/24/19 09:51 140 H 26 H 116/69 07/24/19 09:05 121 H 125/65 07/24/19 07:26 36.9 C 95 H 18 160/77 H Pulse Ox 07/24/19 16:11 07/24/19 15:43 94 07/24/19 13:17 07/24/19 11:53 07/24/19 09:51 92 07/24/19 09:05 07/24/19 07:26 94 Laboratory Results Laboratory Results - last 24 hr 07/23/19 07/23/19 07/24/19 17:04 20:39 08:13 WBC RBC Hgb Hct MCV MCH MCHC RDW Std Deviation RDW Coeff of Ganga Plt Count MPV PT INR APTT PTT Ratio Sodium Potassium Chloride Carbon Dioxide Anion Gap BUN Creatinine Est Cr Clr Drug Dosing Est GFR ( Amer) Est GFR (Non-Af Amer) BUN/Creatinine Ratio Glucose POC Glucose 225 H 171 H 157 H Calcium Magnesium Troponin I 07/24/19 07/24/19 07/24/19 09:58 10:07 11:27 WBC 8.47 RBC 3.21 L Hgb 9.1 L Hct 28.1 L MCV 87.5 MCH 28.3 MCHC 32.4 RDW Std Deviation 45.2 RDW Coeff of Ganga 14.2 Plt Count 199 MPV 9.2 PT INR APTT PTT Ratio Sodium 136 Potassium 3.9 Chloride 97 L Carbon Dioxide 32 Anion Gap 7.0 BUN 23 H Creatinine 0.96 Est Cr Clr Drug Dosing 61.4 Est GFR ( Amer) 65.2 Est GFR (Non-Af Amer) 56.2 BUN/Creatinine Ratio 24.0 H Glucose 210 H POC Glucose 213 H Calcium 9.6 Magnesium 2.0 Troponin I < 0.015 07/24/19 07/24/19 13:13 16:12 WBC RBC Hgb Hct MCV MCH MCHC RDW Std Deviation RDW Coeff of Ganga Plt Count MPV PT 11.1 INR 1.1 APTT 27.2 PTT Ratio 1.0 Sodium Potassium Chloride Carbon Dioxide Anion Gap BUN Creatinine Est Cr Clr Drug Dosing Est GFR ( Amer) Est GFR (Non-Af Amer) BUN/Creatinine Ratio Glucose POC Glucose 196 H Calcium Magnesium Troponin I Medications Administered Current Inpatient Medications Acetaminophen (Tylenol) 1,000 mg PO Q8 SUJEY Stop: 08/20/19 09:29 Last Admin: 07/24/19 13:24 Dose: 1,000 mg Documented by: Al Hydrox/Mg Hydrox/Simethicone (Maalox) 30 ml PO Q6H PRN PRN Reason: Dyspepsia Stop: 08/19/19 19:15 Albuterol (Duoneb) 3 ml NEB QIDR PRN PRN Reason: SOB/Wheezing Stop: 08/19/19 19:15 Budesonide/Formoterol Fumarate (Symbicort 160mcg/4.5mcg) 2 puffs INH BID SUJEY Stop: 08/19/19 20:59 Last Admin: 07/24/19 07:40 Dose: 2 puffs Documented by: Calcium Carbonate (Os-Silvio 500) 1,250 mg PO BID [facility] Stop: 08/21/19 20:59 Last Admin: 07/24/19 08:55 Dose: 1,250 mg Documented by: Dextrose (Dextrose 50%) 25 - 50 ml IV UD PRN; Protocol PRN Reason: Hypoglycemia Protocol Stop: 08/19/19 19:15 Diltiazem HCl (Cardizem) 10 mg IV NOW PRN PRN Reason: tachycardia despite lopressor Enoxaparin Sodium (Lovenox) 40 mg SQ Q24H [facility] Stop: 08/19/19 20:59 Last Admin: 07/23/19 21:07 Dose: 40 mg Documented by: Escitalopram Oxalate (Lexapro Tab) 20 mg PO QAM [facility] Stop: 08/20/19 08:59 Last Admin: 07/24/19 08:53 Dose: 20 mg Documented by: Ferrous Sulfate (Feosol) 325 mg PO DAILY@12 [facility] Stop: 08/22/19 11:59 Last Admin: 07/24/19 11:56 Dose: 325 mg Documented by: Gabapentin (Neurontin) 200 mg PO BID [facility] Stop: 08/19/19 20:59 Last Admin: 07/24/19 08:54 Dose: 200 mg Documented by: Glucagon (Glucagen) 1 mg SQ UD PRN; Protocol PRN Reason: Hypoglycemia Protocol Stop: 08/19/19 19:15 Glucose (Dex4 Glucose) 4 - 8 tabs PO UD PRN; Protocol PRN Reason: Hypoglycemia Protocol Stop: 08/19/19 19:15 Glucose (Glucose 40%) 15 - 30 gm PO UD PRN; Protocol PRN Reason: Hypoglycemia Protocol Stop: 08/19/19 19:15 Diltiazem HCl 125 mg/ Dextrose 125 mls @ 5 mls/hr IV .Q24H PRN; Protocol PRN Reason: Tachycardia Stop: 08/23/19 11:59 Heparin Sodium/Dextrose (Heparin Sodium/Dextrose) 25,000 units in 500 mls @ 29 mls/hr IV .[id number] [facility]; Protocol Stop: 08/23/19 12:59 Last Admin: 07/24/19 13:18 Dose: 1,450 units/hr, 29 mls/hr Documented by: Insulin Aspart (Novolog Flexpen) 0 units SC ACHS [facility] Stop: 08/20/19 16:29 Last Admin: 07/24/19 12:20 Dose: 4 units Documented by: Insulin Human NPH (Novolin N Nph) 0 units SC DAILYBD [facility]; Protocol Stop: 08/19/19 19:59 Last Admin: 07/23/19 17:13 Dose: 15 units Documented by: Insulin Human NPH (Novolin N Nph) 0 units SC DAILY@0730 [facility] Stop: 08/23/19 07:29 Last Admin: 07/24/19 08:46 Dose: 15 units Documented by: Levothyroxine Sodium (Synthroid) 125 mcg PO DAILYBB [facility] Stop: 08/20/19 06:29 Last Admin: 07/24/19 06:32 Dose: 125 mcg Documented by: Lidocaine (Lidoderm 5%) 2 patch TD QAM [facility] Stop: 08/20/19 09:59 Last Admin: 07/24/19 09:15 Dose: 2 patch Documented by: Losartan Potassium (Cozaar) 100 mg PO DAILY [facility] Stop: 08/19/19 17:59 Last Admin: 07/24/19 09:07 Dose: 100 mg Documented by: Magnesium Hydroxide (Milk Of Magnesia) 30 ml PO Q6H PRN PRN Reason: Constipation Stop: 08/19/19 19:15 Metoprolol Tartrate (Lopressor) 12.5 mg PO BID [facility] Stop: 08/19/19 20:59 Last Admin: 07/24/19 09:06 Dose: 12.5 mg Documented by: Miscellaneous (Carbohydrates For Hypoglycemia) 15 - 30 gm PO UD PRN PRN Reason: Hypoglycemia Protocol Stop: 08/19/19 19:15 Miscellaneous (Remove Lidoderm Patch) 2 ea N/A DAILY@2100 [facility] Stop: 08/20/19 21:59 Last Admin: 07/23/19 21:12 Dose: 2 ea Documented by: Multi-Ingredient Cream (Hydrocerin) 1 appln EXT BID [facility] Stop: 08/22/19 20:59 Last Admin: 07/24/19 09:01 Dose: 1 appln Documented by: Mupirocin (Bactroban 2%) 1 appln EXT BID [facility] Stop: 08/19/19 20:59 Last Admin: 07/24/19 09:01 Dose: 1 appln Documented by: Ondansetron HCl (Zofran) 4 mg IV Q6H PRN PRN Reason: Nausea Stop: 08/19/19 19:15 Last Admin: 07/20/19 19:41 Dose: 4 mg Documented by: Polyethylene Glycol (Miralax Powder Packet) 17 gm PO DAILY SUJEY Stop: 08/20/19 08:59 Last Admin: 07/24/19 08:56 Dose: 17 gm Documented by: Quetiapine Fumarate (Seroquel) 25 mg PO HS SUJEY Stop: 08/19/19 20:59 Last Admin: 07/23/19 21:12 Dose: 25 mg Documented by: Senna/Docusate Sodium (Senokot S) 1 tab PO QAM SUJEY Stop: 08/20/19 08:59 Last Admin: 07/24/19 08:56 Dose: 1 tab Documented by: Tramadol HCl (Ultram) 50 mg PO Q6H PRN PRN Reason: Moderate Pain Stop: 08/20/19 08:57 Last Admin: 07/24/19 11:55 Dose: 50 mg Documented by: Vitamin D (Vitamin D3) 1,000 units PO QAM SUJEY Stop: 08/20/19 08:59 Last Admin: 07/24/19 08:53 Dose: 1,000 units Documented by: (1) Fall Encounter type: initial encounter Qualified Code(s): W19.XXXA - Unspecified fall, initial encounter
--- NOTE | 2019-07-24 17:42 | Hospitalist Progress Note ---
Date of Service July 24, 2019 Assessment & Plan (1) Bilateral humeral fractures: S/P mechanical fall. Left shoulder xray showed equivocal nondisplaced impacted proximal humeral fracture. Right shoulder showed right humeral head/neck fracture. Orthopedic on board Nonoperative conservative management Continue sling immobilization and non-weight bearing upper extremities May remove sling for hygiene purposes and gentle passive ROM of elbows and wrists Continue pain control Follow up with Ortho clinic in 1-2 weeks with repeat xray Fall precaution Waiting for placement (2) Atrial fibrillation with rapid ventricular response: EKG showed Afib with RVR this morning Received Lopressor 5 mg IV x 1 and was starting on IV cardizem drip Converted back to Normal sinus rhythm Case discussed with Ortho team and no contraindication to start anticoagulant Starting on IV heparin drip while in the hospital No a good candidate for anticoagulant due to fall risks ECHO pending Will increase metoprolol to 25mg BID Continue monitor in tele (3) Osteoporosis: Osteoporosis with current pathological fracture of bilateral prox humerus Bilateral humeral fractures. Vitamin D level 16.9. Continue Calcium + vitamin D supplements. Outpatient bone density measurement. (4) Hypertension: Continue metoprolol and losartan. (5) COPD (chronic obstructive pulmonary disease): (6) Chronic respiratory failure with hypoxia and hypercapnia: No respiratory distress Continue Symbicort and nebulizer treatments PRN. Continue supplemental oxygen. Stable (7) CKD (chronic kidney disease) stage 3, GFR 30-59 ml/min: History of CKD stage III. Creatinine at time of admission 1.2. Creatinine today 0.96 Avoid nephrotoxic agents (8) Diabetes mellitus, type II: Diabetes mellitus type 2 managed with insulin 70/30 mix. Hemoglobin A1c 7.4. On NPH BID with NovoLog coverage as necessary. Continue monitor BS (9) Hypothyroidism: TSH 0.56. Continue levothyroxine. (10) Abnormal urinalysis: UA positive for leukocytes and bacteria on admission Urine culture growing more than 3 types of organisms, probable contamination. Afebrile and leukocytosis wnl Received IV ceftriaxone 3 doses, will d/c ceftriaxone (11) Anemia: Hgb at time of admission 9.4. MCV 88. Hgb 9.4 --> 8.8 --> 8.3-->8.5-->9.1 Fe 21, transferrin 159, transferrin sat 9%. B12 371. Folate 18. Appears that patient has chronic Fe deficiency anemia. Will need outpatient GI work up Continue iron supplement Monitor CBC (12) DVT prophylaxis: On heparin drip Teds, SCDs (13) Discharge planning issues: Anticipated need for skilled care. Consult Case Management. Primary care follow-up with Dr. Nicole Adams. Subjective Pt was seen and examined Lying in bed and feels hot and sweating this morning Nurse said that her HR has been in the 130's to 140's EKG was done and was found in Afib She denies any chest pain and palpitation Physical Exam Physical Exam: General- No acute distress Head- atraumatic Eyes- PERRL, EOMI, ENT- oropharynx clear Neck- supple, no JVD Lungs- clear to auscultation Heart- regular rhythm; no murmur Abdomen- normal bowel sounds, soft, nontender Extremities- no calf tenderness, +slings in both upper extremities Neuro- alert, oriented x 3; PERRL, EOMI; no facial palsy; no dysarthria Skin- warm & dry, skin excoriation Results & Data Vital Signs (Past 12 Hours) Vital Signs Temp Pulse Pulse Pulse Resp BP BP 07/24/19 16:11 83 07/24/19 15:43 36.8 C 83 20 148/77 H 07/24/19 13:17 85 07/24/19 11:53 133 H 119/78 07/24/19 09:51 140 H 26 H 116/69 07/24/19 09:05 121 H 125/65 07/24/19 07:26 36.9 C 95 H 18 160/77 H Pulse Ox 07/24/19 16:11 07/24/19 15:43 94 07/24/19 13:17 07/24/19 11:53 07/24/19 09:51 92 07/24/19 09:05 07/24/19 07:26 94 (1) Bilateral humeral fractures Encounter type: initial encounter Fracture type: closed Qualified Code(s): S42.301A - Unspecified fracture of shaft of humerus, right arm, initial encounter for closed fracture; S42.302A - Unspecified fracture of shaft of humerus, left arm, initial encounter for closed fracture
[2019-07-24] MEDS: QUETIAPINE FUMARATE 25 MG TABLET PO SCH (20:19)
[2019-07-24 20:35] LABS: Partial Thromboplastin Ratio 1.4
[2019-07-24] MEDS ORDERED: HEPARIN IV BOLUS 7,000 UNITS in SYRINGE 0 ML IV ONE (22:00)
[2019-07-25] MEDS: HEPARIN SODIUM/DEXTROSE 25,000 UNITS/500 ML BAG IV SCH (03:12)
[2019-07-25 04:26] LABS: Basophils # (auto) 0.01 K/uL (0-0.2); Basophils % (auto) 0.1 %; Eosinophils # (auto) 0.25 K/uL (0-0.5); Eosinophils % (auto) 2.9 %; Hemoglobin 8.5 g/dL (12.0-16.0); Immature Granulocytes # (auto) 0.04 K/uL (0.00-0.02); Immature Granulocytes % (auto) 0.5 %; Lymphocytes # (auto) 2.26 K/uL (1.2-3.4); Lymphocytes % (auto) 26.2 %; Mean Corpuscular Hemoglobin 27.8 pg (25-34); Mean Corpuscular Hgb Conc 31.5 g/dL (32-36); Mean Corpuscular Volume 88.2 fL (80-100); Mean Platelet Volume 8.8 fL (7.4-10.4); Monocytes % (auto) 9.3 %; Neutrophils # (auto) 5.25 K/uL (1.4-6.5); Platelet Count 232 K/uL (130-400); RDW Coefficient of Variation 14.5 % (11.5-14.5); RDW Standard Deviation 46.6 fL (36.4-46.3); Red Blood Count 3.06 M/uL (4.2-5.4); White Blood Count 8.61 K/uL (4.8-10.8)
[2019-07-25 04:48] LABS: Partial Thromboplastin Ratio 2.9
[2019-07-25 05:02] LABS: Partial Thromboplastin Time 79.5 Seconds (21.0-31.0)
[2019-07-25] MEDS: ACETAMINOPHEN 500 MG TAB PO SCH ×3 (05:42→20:57)
[2019-07-25] MEDS: LEVOTHYROXINE SODIUM 125 MCG TABLET PO SCH (05:43)
[2019-07-25] MEDS: INSULIN ASPART 100 UNITS/ML 3 ML PEN SC SCH ×4 (08:41→20:55)
[2019-07-25] MEDS: INSULIN HUMAN NPH SC SCH ×2 (08:42→17:25)
[2019-07-25] MEDS: MUPIROCIN 2% OINT 22 GM TUBE EXT SCH ×2 (08:43→20:49)
[2019-07-25] MEDS: EUCERIN CR 120 GM JAR EXT SCH ×2 (08:43→20:49)
[2019-07-25] MEDS: CHOLECALCIFEROL 1,000 UNITS TAB PO SCH (08:44)
[2019-07-25] MEDS: LOSARTAN POTASSIUM 50 MG TAB PO SCH (08:44)
[2019-07-25] MEDS: LIDOCAINE 5% 1 PATCH TD SCH (08:44)
[2019-07-25] MEDS: METOPROLOL TARTRATE 25 MG TAB PO SCH ×2 (08:44→20:50)
[2019-07-25] MEDS: ESCITALOPRAM OXALATE 20 MG TAB PO SCH (08:44)
[2019-07-25] MEDS: CALCIUM CARBONATE 1250MG TAB PO SCH ×2 (08:44→20:51)
[2019-07-25] MEDS: DOCUSATE SODIUM/SENNA 50/8.6MG TAB PO SCH (08:45)
[2019-07-25] MEDS: BUDESONIDE/FORMOTEROL FUMARATE 160/4.5 60 PUFFS/INHALER INH SCH ×2 (08:45→20:52)
[2019-07-25] MEDS: GABAPENTIN 100 MG CAP PO SCH ×2 (08:45→20:50)
[2019-07-25] MEDS: POLYETHYLENE (MIRALAX) 17 GM PACK PO SCH (08:45)
[2019-07-25] MEDS: FERROUS SULFATE 325 MG TAB PO SCH (08:46)
--- NOTE | 2019-07-25 10:15 | Cardiology Progress Note ---
Date of Service July 25, 2019 Assessment & Plan (1) Atrial fibrillation with rapid ventricular response: Asymptomatic Spontaneously converted to normal sinus rhythm with 5 mg of IV Lopressor yesterday Her daily metoprolol dose has been increased to 25 mg p.o. twice daily and could be further increased as her heart rate and blood pressure tolerates. Again I do not see her being an anticoagulation candidate given her recurrent fall risk and her recurrent skin picking. The patient is in agreement with this. So believe the most prudent course of action at this point will be to continue with beta-blockade alone It is okay to discharge from telemetry from a cardiac standpoint She is been on heparin for 24 hours now and I will discontinue it. Obviously given her inability to anticoagulate even for a 30-day window antiarrhythmic therapy would not be indicated at this time. (2) Proximal humerus fracture: Status post fall (3) Skin excoriation: I believe this further supports that she is not an anticoagulation candidate. (4) Fall: Recurrent Subjective Patient seen and examined out of bed on toilet. States that she is been feeling well overnight except for inability to move her bowels. She still has bilateral arm pain but denies any cardiac complaints. She denies experiencing any chest pain, shortness of breath, palpitations, lightheadedness, dizziness or syncope. Telemetry reviewed: Patient spontaneously converted to normal sinus rhythm last p.m. has remained in sinus rhythm overnight. Review of Systems Review of Systems: All systems reviewed & are unremarkable except as noted in HPI & below Physical Exam Physical Exam: General: Awake, alert and oriented x 3. No acute distress. HEENT: Normocephalic, atraumatic. Pupils equal, round and reactive to light and accommodation. Extraocular muscles are intact. Anicteric sclera. Moist mucous membranes. Neck: No JVD. No bruit. Cardiovascular: Regular. Positive S-4. Normal S-1 and S-2. No S-3. No murmurs or rubs. Pulmonary: Clear to auscultation B/L. No rales, rhonchi or wheezing Abdomen: Bowel sounds x 4, soft. No rebound, guarding or tenderness. No or ganomegaly. Extremities: No clubbing, cyanosis or edema. +2 pedal pulses bilaterally. Skin: Warm and dry. Results & Data Vital Signs (Past 12 Hours) Vital Signs Temp Pulse Resp BP Pulse Ox 07/25/19 07:15 36.7 C 85 20 163/68 H 94 07/25/19 03:15 36.7 C 85 20 161/73 H 94 07/24/19 23:50 36.9 C 80 20 125/69 92 Laboratory Results Laboratory Results - last 24 hr 07/24/19 07/24/19 07/24/19 09:58 10:07 11:27 WBC 8.47 RBC 3.21 L Hgb 9.1 L Hct 28.1 L MCV 87.5 MCH 28.3 MCHC 32.4 RDW Std Deviation 45.2 RDW Coeff of [place] 14.2 Plt Count 199 MPV 9.2 Immature Gran % (Auto) Neut % (Auto) Lymph % (Auto) [place] % (Auto) Eos % (Auto) Baso % (Auto) Immature Gran # (Auto) Neut # (Auto) Lymph # (Auto) [place] # (Auto) Eos # (Auto) Baso # (Auto) PT INR APTT PTT Ratio Sodium 136 Potassium 3.9 Chloride 97 L Carbon Dioxide 32 Anion Gap 7.0 BUN 23 H Creatinine 0.96 Est Cr Clr Drug Dosing 61.4 Est GFR ( Amer) 65.2 Est GFR (Non-Af Amer) 56.2 BUN/Creatinine Ratio 24.0 H Glucose 210 H POC Glucose 213 H Calcium 9.6 Magnesium 2.0 Troponin I < 0.015 07/24/19 07/24/19 07/24/19 13:13 16:12 19:51 WBC RBC Hgb Hct MCV MCH MCHC RDW Std Deviation RDW Coeff of [place] Plt Count MPV Immature Gran % (Auto) Neut % (Auto) Lymph % (Auto) [place] % (Auto) Eos % (Auto) Baso % (Auto) Immature Gran # (Auto) Neut # (Auto) Lymph # (Auto) [place] # (Auto) Eos # (Auto) Baso # (Auto) PT 11.1 INR 1.1 APTT 27.2 39.0 H PTT Ratio 1.0 1.4 Sodium Potassium Chloride Carbon Dioxide Anion Gap BUN Creatinine Est Cr Clr Drug Dosing Est GFR ( Amer) Est GFR (Non-Af Amer) BUN/Creatinine Ratio Glucose POC Glucose 196 H Calcium Magnesium Troponin I 07/24/19 07/25/19 07/25/19 20:03 04:19 04:19 WBC 8.61 RBC 3.06 L Hgb 8.5 L Hct 27.0 L MCV 88.2 MCH 27.8 MCHC 31.5 L RDW Std Deviation 46.6 H RDW Coeff of [place] 14.5 Plt Count 232 MPV 8.8 Immature Gran % (Auto) 0.5 Neut % (Auto) 61.0 Lymph % (Auto) 26.2 [place] % (Auto) 9.3 Eos % (Auto) 2.9 Baso % (Auto) 0.1 Immature Gran # (Auto) 0.04 H Neut # (Auto) 5.25 Lymph # (Auto) 2.26 [place] # (Auto) 0.80 H Eos # (Auto) 0.25 Baso # (Auto) 0.01 PT INR APTT 79.5 H* PTT Ratio 2.9 Sodium Potassium Chloride Carbon Dioxide Anion Gap BUN Creatinine Est Cr Clr Drug Dosing Est GFR ( Amer) Est GFR (Non-Af Amer) BUN/Creatinine Ratio Glucose POC Glucose 155 H Calcium Magnesium Troponin I 07/25/19 07:14 WBC RBC Hgb Hct MCV MCH MCHC RDW Std Deviation RDW Coeff of [place] Plt Count MPV Immature Gran % (Auto) Neut % (Auto) Lymph % (Auto) [place] % (Auto) Eos % (Auto) Baso % (Auto) Immature Gran # (Auto) Neut # (Auto) Lymph # (Auto) [place] # (Auto) Eos # (Auto) Baso # (Auto) PT INR APTT PTT Ratio Sodium Potassium Chloride Carbon Dioxide Anion Gap BUN Creatinine Est Cr Clr Drug Dosing Est GFR ( Amer) Est GFR (Non-Af Amer) BUN/Creatinine Ratio Glucose POC Glucose 142 H Calcium Magnesium Troponin I Medications Administered Current Inpatient Medications Acetaminophen (Tylenol) 1,000 mg PO Q8 [facility]JE[facility] Stop: 08/20/19 09:29 Last Admin: 07/25/19 05:42 Dose: 1,000 mg Documented by: Al Hydrox/Mg Hydrox/Simethicone (Maalox) 30 ml PO Q6H PRN PRN Reason: Dyspepsia Stop: 08/19/19 19:15 Albuterol (Duoneb) 3 ml NEB QIDR PRN PRN Reason: SOB/Wheezing Stop: 08/19/19 19:15 Budesonide/Formoterol Fumarate (Symbicort 160mcg/4.5mcg) 2 puffs INH BID [facility] Stop: 08/19/19 20:59 Last Admin: 07/25/19 08:45 Dose: 2 puffs Documented by: Calcium Carbonate (Os-Silvio 500) 1,250 mg PO BID [facility] Stop: 08/21/19 20:59 Last Admin: 07/25/19 08:44 Dose: 1,250 mg Documented by: Dextrose (Dextrose 50%) 25 - 50 ml IV UD PRN; Protocol PRN Reason: Hypoglycemia Protocol Stop: 08/19/19 19:15 Diltiazem HCl (Cardizem) 10 mg IV NOW PRN PRN Reason: tachycardia despite lopressor Enoxaparin Sodium (Lovenox) 40 mg SQ Q24H [facility] Stop: 08/19/19 20:59 Last Admin: 07/23/19 21:07 Dose: 40 mg Documented by: Escitalopram Oxalate (Lexapro Tab) 20 mg PO QAM [facility] Stop: 08/20/19 08:59 Last Admin: 07/25/19 08:44 Dose: 20 mg Documented by: Ferrous Sulfate (Feosol) 325 mg PO DAILY@12 [facility] Stop: 08/22/19 11:59 Last Admin: 07/25/19 08:46 Dose: 325 mg Documented by: Gabapentin (Neurontin) 200 mg PO BID [facility] Stop: 08/19/19 20:59 Last Admin: 07/25/19 08:45 Dose: 200 mg Documented by: Glucagon (Glucagen) 1 mg SQ UD PRN; Protocol PRN Reason: Hypoglycemia Protocol Stop: 08/19/19 19:15 Glucose (Dex4 Glucose) 4 - 8 tabs PO UD PRN; Protocol PRN Reason: Hypoglycemia Protocol Stop: 08/19/19 19:15 Glucose (Glucose 40%) 15 - 30 gm PO UD PRN; Protocol PRN Reason: Hypoglycemia Protocol Stop: 08/19/19 19:15 Diltiazem HCl 125 mg/ Dextrose 125 mls @ 5 mls/hr IV .Q24H PRN; Protocol PRN Reason: Tachycardia Stop: 08/23/19 11:59 Heparin Sodium/Dextrose (Heparin Sodium/Dextrose) 25,000 units in 500 mls @ 33 mls/hr IV .[id number] SUJEY; Protocol Stop: 08/23/19 12:59 Last Titration: 07/25/19 07:13 Dose: 1,650 units/hr, 33 mls/hr Documented by: Insulin Aspart (Novolog Flexpen) 0 units SC ACHS [facility] Stop: 08/20/19 16:29 Last Admin: 07/25/19 08:41 Dose: 5 units Documented by: Insulin Human NPH (Novolin N Nph) 0 units SC DAILYBD SUJEY; Protocol Stop: 08/19/19 19:59 Last Admin: 07/24/19 17:09 Dose: 15 units Documented by: Insulin Human NPH (Novolin N Nph) 0 units SC DAILY@0730 [facility] Stop: 08/23/19 07:29 Last Admin: 07/25/19 08:42 Dose: 8 units Documented by: Levothyroxine Sodium (Synthroid) 125 mcg PO DAILYBB [facility] Stop: 08/20/19 06:29 Last Admin: 07/25/19 05:43 Dose: 125 mcg Documented by: Lidocaine (Lidoderm 5%) 2 patch TD QAM [facility] Stop: 08/20/19 09:59 Last Admin: 07/25/19 08:44 Dose: 2 patch Documented by: Losartan Potassium (Cozaar) 100 mg PO DAILY [facility] Stop: 08/19/19 17:59 Last Admin: 07/25/19 08:44 Dose: 100 mg Documented by: Magnesium Hydroxide (Milk Of Magnesia) 30 ml PO Q6H PRN PRN Reason: Constipation Stop: 08/19/19 19:15 Metoprolol Tartrate (Lopressor) 25 mg PO BID [facility] Stop: 08/23/19 20:59 Last Admin: 07/25/19 08:44 Dose: 25 mg Documented by: Miscellaneous (Carbohydrates For Hypoglycemia) 15 - 30 gm PO UD PRN PRN Reason: Hypoglycemia Protocol Stop: 08/19/19 19:15 Miscellaneous (Remove Lidoderm Patch) 2 ea N/A DAILY@2100 [facility] Stop: 08/20/19 21:59 Last Admin: 07/24/19 20:18 Dose: 2 ea Documented by: Multi-Ingredient Cream (Hydrocerin) 1 appln EXT BID [facility] Stop: 08/22/19 20:59 Last Admin: 07/25/19 08:43 Dose: 1 appln Documented by: Mupirocin (Bactroban 2%) 1 appln EXT BID [facility] Stop: 08/19/19 20:59 Last Admin: 07/25/19 08:43 Dose: 1 appln Documented by: Ondansetron HCl (Zofran) 4 mg IV Q6H PRN PRN Reason: Nausea Stop: 08/19/19 19:15 Last Admin: 07/20/19 19:41 Dose: 4 mg Documented by: Polyethylene Glycol (Miralax Powder Packet) 17 gm PO DAILY [facility] Stop: 08/20/19 08:59 Last Admin: 07/25/19 08:45 Dose: 17 gm Documented by: Quetiapine Fumarate (Seroquel) 25 mg PO HS [facility] Stop: 08/19/19 20:59 Last Admin: 07/24/19 20:19 Dose: 25 mg Documented by: Senna/Docusate Sodium (Senokot S) 1 tab PO QAM [facility] Stop: 08/20/19 08:59 Last Admin: 07/25/19 08:45 Dose: 1 tab Documented by: Tramadol HCl (Ultram) 50 mg PO Q6H PRN PRN Reason: Moderate Pain Stop: 08/20/19 08:57 Last Admin: 07/24/19 11:55 Dose: 50 mg Documented by: Vitamin D (Vitamin D3) 1,000 units PO QAM [facility] Stop: 08/20/19 08:59 Last Admin: 07/25/19 08:44 Dose: 1,000 units Documented by: (1) Fall Encounter type: initial encounter Qualified Code(s): W19.XXXA - Unspecified fall, initial encounter
[2019-07-25 12:35] LABS: Partial Thromboplastin Time 54.1 Seconds (21.0-31.0)
--- NOTE | 2019-07-25 18:53 | Hospitalist Progress Note ---
Date of Service July 25, 2019 Assessment & Plan (1) Bilateral humeral fractures: S/P mechanical fall. Left shoulder xray showed equivocal nondisplaced impacted proximal humeral fracture. Right shoulder showed right humeral head/neck fracture. Orthopedic on board Nonoperative conservative management Continue sling immobilization and non-weight bearing upper extremities May remove sling for hygiene purposes and gentle passive ROM of elbows and wrists Continue pain control Follow up with Ortho clinic in 1-2 weeks with repeat xray Fall precaution Waiting for placement (2) Atrial fibrillation with rapid ventricular response: EKG showed Afib with RVR this morning Received Lopressor 5 mg IV x 1 and was starting on IV cardizem drip Converted back to Normal sinus rhythm Case discussed with Ortho team and no contraindication to start anticoagulant IV heparin drip discontinued today No a good candidate for anticoagulant due to fall risks ECHO showed no wall motion abnormality, grade I diastolic failure with EF 60-65% Continue metoprolol to 25mg BID Clinically stable (3) Osteoporosis: Osteoporosis with current pathological fracture of bilateral prox humerus Bilateral humeral fractures. Vitamin D level 16.9. Continue Calcium + vitamin D supplements. Outpatient bone density measurement. (4) Hypertension: Continue metoprolol and losartan. (5) COPD (chronic obstructive pulmonary disease): (6) Chronic respiratory failure with hypoxia and hypercapnia: No respiratory distress Continue Symbicort and nebulizer treatments PRN. Continue supplemental oxygen. Stable (7) CKD (chronic kidney disease) stage 3, GFR 30-59 ml/min: History of CKD stage III. Creatinine at time of admission 1.2. Creatinine today 0.96 Avoid nephrotoxic agents (8) Diabetes mellitus, type II: Diabetes mellitus type 2 managed with insulin 70/30 mix. Hemoglobin A1c 7.4. On NPH BID with NovoLog coverage as necessary. Continue monitor BS (9) Hypothyroidism: TSH 0.56. Continue levothyroxine. (10) Abnormal urinalysis: UA positive for leukocytes and bacteria on admission Urine culture growing more than 3 types of organisms, probable contamination. Afebrile and leukocytosis wnl Received IV ceftriaxone 3 doses, will d/c ceftriaxone (11) Anemia: Hgb at time of admission 9.4. MCV 88. Hgb 9.4 --> 8.8 --> 8.3-->8.5-->9.1-->8.5 Fe 21, transferrin 159, transferrin sat 9%. B12 371. Folate 18. Appears that patient has chronic Fe deficiency anemia. Will need outpatient GI work up Continue iron supplement Monitor CBC (12) DVT prophylaxis: heparin drip d/c, will resume lovenox subq Teds, SCDs (13) Discharge planning issues: Anticipated need for skilled care. Consult Case Management. Primary care follow-up with Dr. Nicole Adams. Subjective Pt was seen and examined Lying in bed with no distress HR has been stable and regular She denies any chest pain, palpitation and SOB Physical Exam Physical Exam: General- No acute distress Head- atraumatic Eyes- PERRL, EOMI, ENT- oropharynx clear Neck- supple, no JVD Lungs- No wheezing Heart- regular rhythm; no murmur Abdomen- normal bowel sounds, soft, nontender Extremities- no calf tenderness, +slings in both upper extremities Neuro- alert, oriented x 3; PERRL, EOMI; no facial palsy; no dysarthria Skin- warm & dry, skin excoriation Results & Data Vital Signs (Past 12 Hours) Vital Signs Temp Pulse Pulse Pulse Resp BP Pulse Ox 07/25/19 16:00 82 07/25/19 15:36 36.6 C 82 22 154/81 H 91 07/25/19 11:58 36.7 C 83 20 156/64 H 94 07/25/19 08:00 85 07/25/19 07:15 36.7 C 85 20 163/68 H 94 (1) Bilateral humeral fractures Encounter type: initial encounter Fracture type: closed Qualified Code(s): S42.301A - Unspecified fracture of shaft of humerus, right arm, initial encounter for closed fracture; S42.302A - Unspecified fracture of shaft of humerus, left arm, initial encounter for closed fracture
[2019-07-25] MEDS: QUETIAPINE FUMARATE 25 MG TABLET PO SCH (20:52)
[2019-07-25] MEDS: TRAMADOL HCL 50 MG TABLET PO PRN (20:58)
[2019-07-26] MEDS: ACETAMINOPHEN 500 MG TAB PO SCH ×3 (05:28→22:07)
[2019-07-26] MEDS: LEVOTHYROXINE SODIUM 125 MCG TABLET PO SCH (05:28)
[2019-07-26] MEDS: TRAMADOL HCL 50 MG TABLET PO PRN (05:28)
[2019-07-26] MEDS: METOPROLOL TARTRATE 25 MG TAB PO SCH ×2 (07:50→21:04)
[2019-07-26] MEDS: LOSARTAN POTASSIUM 50 MG TAB PO SCH (07:51)
[2019-07-26] MEDS: CHOLECALCIFEROL 1,000 UNITS TAB PO SCH (07:51)
[2019-07-26] MEDS: MUPIROCIN 2% OINT 22 GM TUBE EXT SCH ×2 (08:35→20:51)
[2019-07-26] MEDS: FERROUS SULFATE 325 MG TAB PO SCH (08:36)
[2019-07-26] MEDS: BUDESONIDE/FORMOTEROL FUMARATE 160/4.5 60 PUFFS/INHALER INH SCH ×2 (08:36→20:57)
[2019-07-26] MEDS: EUCERIN CR 120 GM JAR EXT SCH ×2 (08:36→20:51)
[2019-07-26] MEDS: LIDOCAINE 5% 1 PATCH TD SCH (08:37)
[2019-07-26] MEDS: GABAPENTIN 100 MG CAP PO SCH ×2 (08:37→20:53)
[2019-07-26] MEDS: ESCITALOPRAM OXALATE 20 MG TAB PO SCH (09:08)
[2019-07-26] MEDS: INSULIN HUMAN NPH SC SCH ×2 (09:09→18:07)
[2019-07-26] MEDS: INSULIN ASPART 100 UNITS/ML 3 ML PEN SC SCH ×4 (09:10→22:03)
[2019-07-26] MEDS: POLYETHYLENE (MIRALAX) 17 GM PACK PO SCH (09:11)
[2019-07-26 09:38] LABS: Hematocrit (blood only) 27.9 % (37-47); Hemoglobin 8.7 g/dL (12.0-16.0); Mean Corpuscular Hemoglobin 27.9 pg (25-34); Mean Corpuscular Hgb Conc 31.2 g/dL (32-36); Mean Corpuscular Volume 89.4 fL (80-100); Mean Platelet Volume 8.6 fL (7.4-10.4); Platelet Count 268 K/uL (130-400); RDW Coefficient of Variation 14.5 % (11.5-14.5); RDW Standard Deviation 47.3 fL (36.4-46.3); Red Blood Count 3.12 M/uL (4.2-5.4); White Blood Count 7.33 K/uL (4.8-10.8)
[2019-07-26] MEDS: TORSEMIDE 10 MG TAB PO SCH (10:20)
[2019-07-26] MEDS: DOCUSATE SODIUM/SENNA 50/8.6MG TAB PO SCH (10:20)
[2019-07-26] MEDS: CALCIUM CARBONATE 1250MG TAB PO SCH ×2 (10:20→20:56)
--- NOTE | 2019-07-26 19:23 | Hospitalist Progress Note ---
Date of Service July 26, 2019 Assessment & Plan (1) Bilateral humeral fractures: S/P mechanical fall. Left shoulder xray showed equivocal nondisplaced impacted proximal humeral fracture. Right shoulder showed right humeral head/neck fracture. Orthopedic on board Nonoperative conservative management Continue sling immobilization and non-weight bearing upper extremities May remove sling for hygiene purposes and gentle passive ROM of elbows and wrists Continue pain control Follow up with Ortho clinic in 1-2 weeks with repeat xray Fall precaution Waiting for placement (2) Atrial fibrillation with rapid ventricular response: EKG showed Afib with RVR this morning Received Lopressor 5 mg IV x 1 and was starting on IV cardizem drip Converted back to Normal sinus rhythm Case discussed with Ortho team and no contraindication to start anticoagulant IV heparin drip discontinued today No a good candidate for anticoagulant due to fall risks ECHO showed no wall motion abnormality, grade I diastolic failure with EF 60-65% Continue metoprolol to 25mg BID Clinically stable (3) Osteoporosis: Osteoporosis with current pathological fracture of bilateral prox humerus Bilateral humeral fractures. Vitamin D level 16.9. Continue Calcium + vitamin D supplements. Outpatient bone density measurement. (4) Hypertension: BP elevated today Continue metoprolol and losartan. Torsemide resumed (5) COPD (chronic obstructive pulmonary disease): (6) Chronic respiratory failure with hypoxia and hypercapnia: No respiratory distress Continue Symbicort and nebulizer treatments PRN. Continue supplemental oxygen. Stable (7) CKD (chronic kidney disease) stage 3, GFR 30-59 ml/min: History of CKD stage III. Creatinine at time of admission 1.2. Creatinine 0.96 stable Avoid nephrotoxic agents (8) Diabetes mellitus, type II: Diabetes mellitus type 2 managed with insulin 70/30 mix. Hemoglobin A1c 7.4. On NPH BID with NovoLog coverage as necessary. Continue monitor BS (9) Hypothyroidism: TSH 0.56. Continue levothyroxine. (10) Abnormal urinalysis: UA positive for leukocytes and bacteria on admission Urine culture growing more than 3 types of organisms, probable contamination. Afebrile and leukocytosis wnl Received IV ceftriaxone 3 doses, will d/c ceftriaxone (11) Anemia: Hgb at time of admission 9.4. MCV 88. Hgb 9.4 --> 8.8 --> 8.3-->8.5-->9.1-->8.5-->8.7 Fe 21, transferrin 159, transferrin sat 9%. B12 371. Folate 18. Appears that patient has chronic Fe deficiency anemia. Will need outpatient GI work up Continue iron supplement Monitor CBC (12) DVT prophylaxis: heparin drip d/c, will resume lovenox subq Teds, SCDs (13) Discharge planning issues: Anticipated need for skilled care. Consult Case Management. Primary care follow-up with Dr. Nicole Adams. Subjective Pt was seen and examined Lying in bed with no distress Denies any chest pain, palpitation and SOB Physical Exam Physical Exam: General- No acute distress Head- atraumatic Eyes- PERRL, EOMI, ENT- oropharynx clear Neck- supple, no JVD Lungs- No wheezing Heart- regular rhythm; no murmur Abdomen- normal bowel sounds, soft, nontender Extremities- no calf tenderness, +slings in both upper extremities Neuro- alert, oriented x 3; PERRL, EOMI; no facial palsy; no dysarthria Skin- warm & dry, skin excoriation Results & Data Vital Signs (Past 12 Hours) Vital Signs Temp Pulse Resp BP BP Pulse Ox 07/26/19 15:17 36.8 C 75 16 171/67 H 93 07/26/19 10:18 36.5 C 72 18 192/75 H 94 07/26/19 07:47 36.6 C 80 18 186/89 H 96 (1) Bilateral humeral fractures Encounter type: initial encounter Fracture type: closed Qualified Code(s): S42.301A - Unspecified fracture of shaft of humerus, right arm, initial encounter for closed fracture; S42.302A - Unspecified fracture of shaft of humerus, left arm, initial encounter for closed fracture
[2019-07-26] MEDS: ENOXAPARIN INJ 40 MG/0.4 ML SYR SQ SCH (20:52)
[2019-07-26] MEDS: QUETIAPINE FUMARATE 25 MG TABLET PO SCH (20:56)
[2019-07-27] MEDS: ACETAMINOPHEN 500 MG TAB PO SCH ×2 (05:27→13:53)
[2019-07-27] MEDS: LEVOTHYROXINE SODIUM 125 MCG TABLET PO SCH (05:27)
[2019-07-27 06:05] LABS: Hematocrit (blood only) 29.4 % (37-47); Hemoglobin 9.2 g/dL (12.0-16.0); Mean Corpuscular Hemoglobin 27.6 pg (25-34); Mean Corpuscular Hgb Conc 31.3 g/dL (32-36); Mean Corpuscular Volume 88.3 fL (80-100); Mean Platelet Volume 8.3 fL (7.4-10.4); Platelet Count 304 K/uL (130-400); RDW Coefficient of Variation 14.5 % (11.5-14.5); RDW Standard Deviation 46.9 fL (36.4-46.3); Red Blood Count 3.33 M/uL (4.2-5.4); White Blood Count 7.84 K/uL (4.8-10.8)
[2019-07-27 06:31] LABS: BUN Creatinine Ratio 28.8 (10-20); Calcium 9.4 mg/dl (8.5-10.1); Creatinine Clr Calc Pharmacy 68.1 ml/min; Est GFR (African American) 70.5; Est GFR (Non-African American) 60.8; Potassium 3.7 mmol/L (3.5-5.1)
[2019-07-27] MEDS: LOSARTAN POTASSIUM 50 MG TAB PO SCH (08:38)
[2019-07-27] MEDS: EUCERIN CR 120 GM JAR EXT SCH (08:39)
[2019-07-27] MEDS: TORSEMIDE 10 MG TAB PO SCH (08:39)
[2019-07-27] MEDS: METOPROLOL TARTRATE 25 MG TAB PO SCH (08:40)
[2019-07-27] MEDS: ESCITALOPRAM OXALATE 20 MG TAB PO SCH (08:40)
[2019-07-27] MEDS: GABAPENTIN 100 MG CAP PO SCH (08:42)
[2019-07-27] MEDS: CALCIUM CARBONATE 1250MG TAB PO SCH (08:42)
[2019-07-27] MEDS: CHOLECALCIFEROL 1,000 UNITS TAB PO SCH (08:43)
[2019-07-27] MEDS: POLYETHYLENE (MIRALAX) 17 GM PACK PO SCH (08:45)
[2019-07-27] MEDS: DOCUSATE SODIUM/SENNA 50/8.6MG TAB PO SCH (08:46)
[2019-07-27] MEDS: INSULIN HUMAN NPH SC SCH (09:22)
[2019-07-27] MEDS: INSULIN ASPART 100 UNITS/ML 3 ML PEN SC SCH ×2 (09:24→13:28)
[2019-07-27] MEDS: BUDESONIDE/FORMOTEROL FUMARATE 160/4.5 60 PUFFS/INHALER INH SCH (09:28)
[2019-07-27] MEDS: MUPIROCIN 2% OINT 22 GM TUBE EXT SCH (09:30)
[2019-07-27] MEDS: LIDOCAINE 5% 1 PATCH TD SCH (09:31)
--- NOTE | 2019-07-27 12:49 | Hospitalist Progress Note ---
Date of Service July 27, 2019 Assessment & Plan (1) Bilateral humeral fractures: Bilateral humeral fractures after mechanical fall. Orthopedic Surgery consulted. Nonoperative management recommended: sling immobilization non-weight bearing upper extremities may remove sling for hygiene purposes and gentle passive ROM of elbows and wrists ice to shoulders Ortho f/u in clinic in 1-2 weeks. Management of osteoporosis as discussed below. (2) Osteoporosis: Bilateral humeral fractures. Vitamin D level = 16.9. Calcium + vitamin D supplements. Outpatient bone density measurement. (3) Hypertension: Blood pressures elevated at times. Add diltiazem ER 60 mg BID for hypertension and atrial fibrillation. Continue metoprolol and losartan. (4) Atrial fibrillation with rapid ventricular response: Episode of paroxysmal atrial fibrillation with rapid ventricular response on 07/24. Converted to NSR after receiving IV metoprolol. Seen in consultation by Cardiology. Electrolytes and TSH normal. Echo showed normal LV wall motion and systolic function, grade I diastolic dysfunction. Left atrial size was normal. Anticoagulation not recommended because of high fall risk. Continue metoprolol tartrate. Diltiazem ER 60 mg BID added for better BP control and to help maintain NSR. (5) COPD (chronic obstructive pulmonary disease): Respiratory status stable. Continue Symbicort and nebulizer treatments PRN. (6) Chronic respiratory failure with hypoxia and hypercapnia: Chronic hypoxic respiratory failure secondary to COPD, on home O2 2 L/min. Continue supplemental oxygen. Incentive spirometry. (7) CKD (chronic kidney disease) stage 3, GFR 30-59 ml/min: History of CKD stage III. Creatinine at time of admission 1.2. Creatinine today = 0.9. Watch volume status. Best to avoid nonsteroidal anti-inflammatory drugs if possible. (8) Diabetes mellitus, type II: Diabetes mellitus type 2 managed with insulin 70/30 mix. Hemoglobin A1c 7.4. Fasting blood sugar this morning 124. Currently receiving NPH BID with NovoLog coverage as necessary. Pt indicates that usual insulin 70/30 dose at home is 50 units before breakfast and 30 units before supper. Insulin requirements here have been lower. Will DC on 70/30 20 units before breakfast and 10 units before supper. Follow blood sugars and adjust dosing as necessary. (9) Hypothyroidism: TSH 0.56. Continue levothyroxine. (10) Abnormal urinalysis: Admission UA showed 1+ blood, 2+ leukocyte esterase, 5-10 WBCs, 10-30 RBCs, 5-10 hyaline casts, many epithelial cells, 1+ bacteria. May or may not have urinary tract infection. Afebrile. Receiving empiric therapy with ceftriaxone pending culture results. Urine culture growing more than 3 types of organisms, probable contamination. Ceftriaxone discontinued. (11) Anemia: Hgb at time of admission 9.4. MCV 88. Hgb 9.4 --> 8.8 --> 8.3. Fe 21, transferrin 159, transferrin sat 9%. B12 371. Folate 18. Appears that patient has chronic Fe deficiency anemia. May have acute blood loss as well, possibly secondary to trauma. Stools heme negative. Started FeSO4. Hemoglobin day of discharge 9.2. Follow H/H. Consider eventual endoscopic GI evaluation if not recently done and medical status allows. (12) Campo catheter in place: [place] catheter placed because of immobility and pain related to humeral fractures. Voiding trial as soon as possible. (13) DVT prophylaxis: TEDS, SCDs, enoxaparin utilized. Continue enoxaparin until ambulatory. (14) Discharge planning issues: Needs skilled care. Case Management consulted. Arrangements being made for transfer to [facility]. Primary care follow-up with Dr. Nicole Adams. Subjective Recheck for humeral fractures and other problems. Patient seen in their room around 1210. Should pain better. Tired. Moved bowels yesterday. No new concerns. Review of Systems: Constitutional- no fever. Cardiac- no chest pain. Pulmonary- pulmonary status stable; no cough or SOB at rest. GI- no nausea, vomiting, diarrhea, melena, hematochezia. - as noted above. Otherwise, as noted above. Physical Exam Constitutional: no acute distress ENMT: Nose: + external nose abnormality (NC @ 2 LPM) Respiratory: no respiratory distress Auscultation: lungs clear to auscultation bilaterally Cardiovascular: Rate/Rhythm: regular rate and regular rhythm Heart Sounds: no gallop, no murmur and no cardiac rub Vessels: no JVD Extremities: no calf tenderness and no edema Gastrointestinal (Abdomen): normal bowel sounds, soft, nontender, no hepatosplenomegaly Musculoskeletal: Extremities: + lower leg abnormality (SCD's applied); + extremities abnormal to inspection (upper extremities immobilized in slings; fingers warm with good cap refill) Skin: no rashes, warm and dry Psychiatric: Orientation: alert and oriented x 3 Genitourinary: + bladder abnormality ([place] catheter) Results & Data Vital Signs (Past 12 Hours) Vital Signs Temp Pulse Resp BP Pulse Ox 07/27/19 11:39 36.7 C 71 17 182/91 H 96 07/27/19 07:45 36.6 C 75 16 187/93 H 97 (1) Bilateral humeral fractures Encounter type: initial encounter Fracture type: closed Qualified Code(s): S42.301A - Unspecified fracture of shaft of humerus, right arm, initial encounter for closed fracture; S42.302A - Unspecified fracture of shaft of humerus, left arm, initial encounter for closed fracture
--- NOTE | 2019-07-27 12:59 | Discharge Summary ---
Date of Service Date of Admission: 07/20/19 Date of Discharge: 07/27/19 Admission HPI Per Admitting Provider This is a 78-year-old female who has significant PMH of COPD O2 dependent, T2DM insulin-dependent, HTN, diabetic neuropathy, depression with anxiety, hypothyroidism, history of uterine CA, history of GIST tumor who presents to [facility] ED after sustaining mechanical fall while at home. She was walking at home when she tripped over her oxygen tubing, reached out with both arms to catch herself and fell to the ground. She immediately had bilateral upper extremity pain and inability to get herself up. She therefore presented to ED. She denies hitting her head or syncopal episode. Prior to falling she denies any recent illness, fever, chills, sweats, lightheadedness, dizziness, chest pain, shortness breath at rest, emesis, abdominal pain, diarrh ea, dysuria, increased urgency or frequency with urination. She said she does get intermittent nausea with meals. She denies any significant weight gain or loss. Denies any orthopnea or PND. She did not take any of her medications at this morning, except 45 units of NPH. In ED patient was found to have bilateral humeral fractures, Left being impacted proximal humeral fracture, right being humeral head/neck fracture. Head CT and cervical spine CT otherwise unremarkable. Her H&H was decreased to 9.4 and 29.3, W BC 11.23, BUN 26, creatinine 1.20, glucose 107, troponin WNL. Her urinalysis had +2 leukocyte esterase, +1 bacteria and numerous epithelial cells Per ED provider orthopedics was called who recommended nonweightbearing status of bilateral upper extremities and admission to hospital. Principal Diagnosis fracture right humeral head / neck fracture left proximal humerus, nondisplaced (equivocal) OTHER ACUTE / NEW DIAGNOSES: paroxysmal atrial fibrillation anemia, iron deficient Discharge Data Allergies Allergy/AdvReac Type Severity Reaction Status Date / Time Sulfa (Sulfonamide Allergy Intermediate HIVES Verified 07/20/19 14:20 Antibiotics) Consultations 07/20/19 17:52 Consult Orthopedic Surgery Routine 07/20/19 19:16 Consult Case Management - Discharge Planning Routine 07/24/19 10:51 Consult Cardiology Routine Ordered Studies 07/20/19 14:16 CT cervical spine wo con Stat CT head/brain wo con Stat Hospital Course (1) Bilateral humeral fractures: Bilateral humeral fractures after mechanical fall: fracture right humeral head / neck fracture left proximal humerus, nondisplaced (equivocal) Orthopedic Surgery consulted. Nonoperative management recommended: sling immobilization non-weight bearing upper extremities may remove sling for hygiene purposes and gentle passive ROM of elbows and wrists ice to shoulders Ortho f/u in clinic in 1-2 weeks. Management of osteoporosis as discussed below. (2) Osteoporosis: Bilateral humeral fractures. Vitamin D level = 16.9. Calcium + vitamin D supplements. Outpatient bone density measurement. (3) Hypertension: Blood pressures elevated at times. Add diltiazem ER 60 mg BID for hypertension and atrial fibrillation. Continue metoprolol and losartan. (4) Atrial fibrillation with rapid ventricular response: Episode of paroxysmal atrial fibrillation with rapid ventricular response on 07/24. Converted to NSR after receiving IV metoprolol. Seen in consultation by Cardiology. Electrolytes and TSH normal. Echo showed normal LV wall motion and systolic function, grade I diastolic dysfunction. Left atrial size was normal. Anticoagulation not recommended because of high fall risk. Continue metoprolol tartrate. Diltiazem ER 60 mg BID added for better BP control and to help maintain NSR. (5) COPD (chronic obstructive pulmonary disease): Respiratory status stable. Continue Symbicort and nebulizer treatments PRN. (6) Chronic respiratory failure with hypoxia and hypercapnia: Chronic hypoxic respiratory failure secondary to COPD, on home O2 2 L/min. Continue supplemental oxygen. Incentive spirometry. (7) CKD (chronic kidney disease) stage 3, GFR 30-59 ml/min: History of CKD stage III. Creatinine at time of admission 1.2. Creatinine today = 0.9. Watch volume status. Best to avoid nonsteroidal anti-inflammatory drugs if possible. (8) Diabetes mellitus, type II: Diabetes mellitus type 2 managed with insulin 70/30 mix. Hemoglobin A1c 7.4. Fasting blood sugar day of discharge was 124. Currently receiving NPH BID with NovoLog coverage as necessary. Pt indicates that usual insulin 70/30 dose at home is 50 units before breakfast and 30 units before supper. Insulin requirements here have been lower. Will DC on 70/30 20 units before breakfast and 10 units before supper. Follow blood sugars and adjust dosing as necessary. (9) Hypothyroidism: TSH 0.56. Continue levothyroxine. (10) Abnormal urinalysis: Admission UA showed 1+ blood, 2+ leukocyte esterase, 5-10 WBCs, 10-30 RBCs, 5-10 hyaline casts, many epithelial cells, 1+ bacteria. May or may not have urinary tract infection. Afebrile. Receiving empiric therapy with ceftriaxone pending culture results. Urine culture growing more than 3 types of organisms, probable contamination. Ceftriaxone discontinued. (11) Anemia: Hgb at time of admission 9.4. MCV 88. Hgb 9.4 --> 8.8 --> 8.3. Fe 21, transferrin 159, transferrin sat 9%. B12 371. Folate 18. Appears that patient has chronic Fe deficiency anemia. May have acute blood loss as well, possibly secondary to trauma. Stools heme negative. Started FeSO4. Hemoglobin day of discharge 9.2. Follow H/H. Consider eventual endoscopic GI evaluation if not recently done and medical status allows. (12) Campo catheter in place: Campo catheter placed because of immobility and pain related to humeral fractures. Voiding trial as soon as possible. (13) DVT prophylaxis: TEDS, SCDs, enoxaparin utilized. Continue enoxaparin until ambulatory. (14) Discharge planning issues: Needs skilled care. Case Management consulted. Arrangements being made for transfer to [facility]. Primary care follow-up with Dr. Nicole Adams. Total Time Total Time Spent Total Time Spent (In Minutes): 50 Discharge Plan Discharge Items Patient Disposition: Transfer [facility] Reason For Visit: bilateral humeral fractures Discharge Diagnosis: bilateral humeral fractures paroxysmal atrial fibrillation Condition on Discharge: Good Activity: As commented below Activity Comment: ambulation with assistance Non-emergency contact: Primary Care Provider, Hospitalist and Surgeon Call non-emergency contact if: you have any medication questions, your pain is not controlled and your temperature is above 101 Follow-up/Referrals: Corona Calixto DO [Physician] - (Call for a follow up ~1-2 weeks after discharge for x-rays.) NICOLE ADAMS [Primary Care Provider] - (Please arrange for follow-up at time of discharge from your facility.) Diet: Carb Consistent or DM2 and Heart Healthy Addtl Attending Provider Instructions: Management of humeral fractures: sling immobilization non-weight bearing upper extremities may remove sling for hygiene purposes and gentle passive ROM of elbows and wrists ice to shoulders O2 2 LPM nasal cannula (chronic, on home O2) fall precautions skin precautions reposition q 2 hours deep breathing / incentive spirometry fingerstick blood sugars AC + HS Has Campo catheter because of immobility. Please attempt voiding trial as soon as patient can use bedpan or commode comfortably. Thank you for receiving this patient in transfer. Please call if you have any questions. Boston Larson Pending Studies at Discharge: No Stand-Alone Forms: My [facility] Skilled Items Patient informed of condition?: Yes DNR: No Discharge Level of Care: Skilled Communicable Disease: No Discharge Prognosis: Improving Lines: None Urinary Catheter: Yes (Please attempt voiding trial as soon as possible.) Medications and DC Order Prescriptions: New enoxaparin 40 mg/0.4 mL Syringe 40 mg subcut Q24H 30 Days Qty: 12 RF: 0 ferrous sulfate 325 mg (65 mg iron) Tablet,Delayed Release (Dr/Ec) 325 mg PO DAILY 30 Days Qty: 30 RF: 0 tramadol 50 mg Tablet 50 mg PO Q6H PRN (Reason: severe pain) Qty: 12 RF: 0 acetaminophen 500 mg tablet 1,000 mg PO Q8H PRN (Reason: fever or pain) Qty: 60 RF: 0 polyethylene glycol 3350 [Miralax] 17 gram/dose powder See Rx Instructions .ROUTE .COMPLEX PRN (Reason: constipation) Qty: 238 RF: 0 sennosides-docusate sodium [Senokot-S] 8.6-50 mg tablet 1 tabcap PO BID Qty: 60 RF: 0 calcium carbonate 500 mg calcium (1,250 mg) tablet 500 mg PO BID Qty: 60 RF: 0 gabapentin 100 mg capsule 200 mg PO BID Qty: 120 RF: 0 lidocaine 5 % adhesive patch,medicated 1 patch TOP DAILY Qty: 30 RF: 0 diltiazem HCl 60 mg capsule,extended release 12 hr 60 mg PO BID Qty: 60 RF: 0 Continued escitalopram oxalate [Lexapro] 20 mg tablet 20 mg PO QAM RF: 0 metoprolol tartrate 25 mg tablet 25 mg PO BID RF: 0 quetiapine 25 mg tablet 25 mg PO HS RF: 0 Symbicort 160-4.5 mcg/actuation HFA aerosol inhaler 2 puffs INH BID RF: 0 albuterol sulfate [Ventolin HFA] 90 mcg/actuation HFA aerosol inhaler 2 puffs INH Q4H PRN (Reason: Shortness Of Breath Or Wheezing) RF: 0 cholecalciferol (vitamin D3) 1,000 unit capsule 1,000 units PO QAM RF: 0 torsemide 20 mg tablet 20 mg PO DAILY RF: 0 levothyroxine 125 mcg Tablet 100 mcg PO DAILY RF: 0 losartan 100 mg Tablet 100 mg PO DAILY RF: 0 Changed Novolin 70/30 U-100 Insulin 100 unit/mL (70-30) suspension See Rx Instructions .ROUTE .COMPLEX Qty: 0 RF: 0 Discontinued acetaminophen [Tylenol Extra Strength] 500 mg Tablet 500 mg PO Q6H PRN (Reason: Pain) RF: 0 gabapentin 100 mg capsule See Rx Instructions .ROUTE .COMPLEX RF: 0 Admission Data Admit Date/Time: 07/20/19 17:52 Attending Provider: oBston Larson Admit Provider: Maryam Rodgers Primary Care Provider: NICOLE ADAMS Other Providers: Maryam Rodgers ; Boston Larson ; Corona Calixto David L ; Zain Simpson
--- NOTE | 2019-07-27 13:16 | Communication Note ---
Date of Service: July 27, 2019 Dr. Sofia will be attending physician at [facility]. He was given report by phone.
[2019-07-27] MEDS: FERROUS SULFATE 325 MG TAB PO SCH (13:53)
[2019-07-27] MEDS: TRAMADOL HCL 50 MG TABLET PO PRN (16:01)
== END 2019-07-27 16:41 | DRG 543 ==
LOC: ED 11:56 → SUATTDRO 17:52 → 3W 17:52 → 2E 07-24 09:49 → 3N 07-25 23:58

== ENCOUNTER 2022-11-02 10:04 | Inpatient (IN) ==
[2022-11-02] MEDS ORDERED: MoRPHine SULFATE 4 MG/ML 1 ML CARP\\VIAL IV STA (10:41)
[2022-11-02] MEDS ORDERED: ONDANSETRON INJ 2 MG/ML 2 ML VIAL IV STA (10:41)
--- NOTE | 2022-11-02 10:42 | Emergency Department Note ---
Impression & Plan LUCY (acute kidney injury), Fall, Anemia ED Provider Note NAME: EZE CORRAL AGE: 81 SEX: F : 1940 ARRIVES VIA: Ambulance INFORMANT: Patient, EMS ED PROVIDER(S): Juve Aleman DO CHIEF COMPLAINT: Falls HPI: Patient is an 81-year-old female who presents to the ER with a past medical history A-fib, CKD, COPD, diabetes, hypertension for 2 falls. She notes she was not dizzy or lightheaded prior to the falls. She fell last night and again this morning. She could not get up this morning. She did call for EMS. She laid on the ground from 4 AM to about 9. She denies any neck pain but does admit to a headache. Admits to left chest wall pain as well as left knee pain is having trouble getting around because of this. Denies any weakness or numbness in the arms or legs. No dysuria, urgency, or frequency. She has felt kind of foggy since yesterday per the patient. She is chronically on 2 L nasal cannula. PAST MEDICAL HISTORY:See Below PAST SURGICAL HISTORY:See Below FAMILY HISTORY:See Below SOCIAL HISTORY:See Below HOME MEDICATIONS:See Below ALLERGIES:See Below VITALS:See Below PHYSICAL EXAMINATION: GENERAL: alert, morbidly obese, disheveled HEAD: normal cephalic, atraumatic EYE EXAM: normal conjunctiva, PERRL and EOM's grossly intact OROPHARYNX: no exudate, no erythema, lips, buccal mucosa, and tongue normal and mucous membranes are moist NECK: supple, no nuchal rigidity, no adenopathy, non-tender CHEST: stable to compression anteriorly and posteriorly with tenderness over the left mid axillary ribs 4 through 8 LUNGS: Diminished bilaterally. Normal chest wall mechanics HEART: no murmurs, S1 normal and S2 normal ABDOMEN: abdomen soft, non-tender, normo-active bowel sounds, no masses, no rebound or guarding. PELVIS: stable to compression anteriorly and posteriorly BACK: Back is symmetrical on inspection and there is no deformity, no midline tenderness, no CVA tenderness. UPPER EXTREMITIES: full active and passive range of motion of all joints without tenderness to palpation LOWER EXTREMITIES: No tenderness on palpation of the entire right lower ext remity. No pain on palpation of left hip, proximal mid femur. Tenderness over the left knee with any range of motion or palpation. No tenderness over the mid to distal mathew ankle or foot. NEURO EXAM: Normal sensorium, cranial nerves II-XII grossly intact, normal speech, no gross weakness of arms, no gross weakness of legs. GCS: 15. MEDICAL DECISION MAKING: Patient is a 81-year-old female chronically on oxygen that presents to the ER following 2 falls in the past 24 hours. Unable to get up on her own. IV was established blood work was obtained. Labs show no significant leukocytosis. Mild anemia at 10 consistent with previous. BMP with a creatinine of 3 si gnificantly up from baseline of 1.3. Glucose was elevated at 359. LFTs bilirubin was unremarkable. Troponin was negative. Lipase negative. UA was clean. CT of the head, cervical spine and chest shows age-indeterminate left sixth rib fracture. No other bleeds hemo or pneumothorax's. Camop was placed. She was given IV fluids. She is updated bedside. X-rays of the left knee were unremarkable. Discussed with the hospitalist for further evaluation and management. External records were reviewed. Triage Nursing notes reviewed. Limited review of prior medical records performed Vital Signs: reviewed and remarkable for HTN Differential diagnosis: Differential diagnoses include major intracranial, cervical, spinal, thoracic, abdominal, pelvic and neurologic injury. Fracture, contusion, sprain, strain, laceration, abrasions included as well. ER treatment provided: See below Diagnostics interpreted by me include EKG and cardiac monitoring as listed below: -Cardiac Monitoring: An order was placed for continuous cardiac monitoring. The monitor shows a rate of 70 with sinus rhythm. -ECG: Sinus rhythm rate 73 Normal axis No PVCs Poor baseline in V6 QTc 464 -Laboratory studies:Interpreted by me as stated above in MDM and shown below. Imaging studies: Xrays: As interpreted by me: Portable AP upright 1 view of the chest shows no focal infiltrate CTs show: CT of the head, cervical spine and chest shows questionable left sixth rib fracture Consultation(s): Discussed with [facility] hospitalist for further evaluation management and treatment Procedures:none Critical Care: None Past Med/Surg History Medical History Abdominal abscess Abdominal fluid collection Asthma Chronic respiratory failure with hypoxia and hypercapnia CKD (chronic kidney disease) stage 3, GFR 30-59 ml/min COPD (chronic obstructive pulmonary disease) COPD, group C, by GOLD 2013 classification Dependence on supplemental oxygen Depression Diabetes mellitus Diabetes mellitus, type II Diastolic congestive heart failure Excessive daytime sleepiness Excessive somnolence disorder Femur fracture Hip fracture History of DVT (deep vein thrombosis) Hypertension Hypertension Hypothyroidism Long COVID Osteoporosis Panic attacks 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 Rhinitis Shortness of breath Witnessed apneic spells Surgical History History of cholecystectomy History of partial thyroidectomy History of tonsillectomy and adenoidectomy History of total left hip arthroplasty Status post cholecystectomy Status post hysterectomy Family History Other No pertinent family history in first degree relatives Denies family history of Diabetes Cancer Social History Smoking Status: Never smoker Hx Alcohol Use: No Hx Substance Use: No Preferred Language: Cambodian Communication Ability: Effective Stage Director Required: No Beliefs That Will Affect Care: Druze Druze Beliefs: religion marital status: Current Living Situation: Spouse Feels Safe at Home: Yes Assistive Devices: Oxygen - Continuous Allergies Allergies Allergy/AdvReac Type Severity Reaction Status Date / Time Sulfa (Sulfonamide Allergy Intermediate HIVES Verified 11/02/22 11:59 Antibiotics) Home Meds Home Medications Medication Instructions Recorded Confirmed acetaminophen 500 mg tablet 1,000 mg PO Q6H PRN Pain 11/02/22 11/02/22 (Tylenol Extra Strength) albuterol sulfate 90 mcg/actuation 2 puff inhalation Q4 PRN Shortness 11/02/22 11/02/22 aerosol inhaler Of Breath aspirin 81 mg tablet,delayed 81 mg PO DAILY 11/02/22 11/02/22 release atorvastatin 40 mg tablet 40 mg PO DAILY 11/02/22 11/02/22 budesonide-formoterol HFA 80 1 puff inhalation DIRECTED 11/02/22 11/02/22 mcg-4.5 mcg/actuation aerosol inhaler (Symbicort) cholecalciferol (vitamin D3) 10 10 mcg PO DAILY 11/02/22 11/02/22 mcg (400 unit) tablet (Vitamin D3) diltiazem HCl 60 mg 60 mg PO Q12 11/02/22 11/02/22 capsule,extended release 12 hr dulaglutide 1.5 mg/0.5 mL 1.5 mg subcut .QSUNDAY 11/02/22 11/02/22 subcutaneous pen injector (Trulicity) escitalopram oxalate 20 mg tablet 20 mg PO DAILY 11/02/22 11/02/22 famotidine 20 mg tablet 20 mg PO DAILY 11/02/22 11/02/22 gabapentin 100 mg capsule 200 mg PO BID 11/02/22 11/02/22 insulin glargine 100 unit/mL (3 20 unit subcut BID 11/02/22 11/02/22 mL) subcutaneous pen (Lantus Solostar U-100 Insulin) levothyroxine 100 mcg tablet 100 mcg PO DAILY 11/02/22 11/02/22 losartan 100 mg tablet 100 mg PO DAILY 11/02/22 11/02/22 metoprolol tartrate 25 mg tablet 12.5 mg PO DAILY 11/02/22 11/02/22 quetiapine 50 mg tablet 50 mg PO HS 11/02/22 11/02/22 tolterodine 2 mg capsule,extended 2 mg PO DAILY 11/02/22 11/02/22 release 24 hr torsemide 20 mg tablet 20 mg PO BID 11/02/22 11/02/22 Results & Data (ED) Vital Signs Vital Signs - 24 hr 11/02/22 10:12 11/02/22 10:47 11/02/22 10:37 Temperature 36.6 C Temperature Source Oral Pulse Rate 72 76 Respiratory Rate 18 22 Respiratory Effort / Characteristics Non-Labored Spontaneous Respiratory Depth Normal Respiratory Pattern Regular Blood Pressure 147/70 H 150/79 H Blood Pressure Mean 95 102 Blood Pressure Position Lying Pulse Oximetry 99 Oxygen Delivery Method Room Air Nasal Cannula Nasal Cannula Oxygen Flow Rate 2 2 Sepsis Recent Fever Within 48 Hours No Sepsis New/Unexplained Change in Mental Status No Sepsis Action Taken by Nursing No Action Required 11/02/22 11:00 11/02/22 11:30 11/02/22 12:41 Temperature Temperature Source Pulse Rate 74 74 74 Respiratory Rate 19 15 Respiratory Effort / Characteristics Respiratory Depth Respiratory Pattern Blood Pressure 166/97 H 150/66 H Blood Pressure Mean 120 94 Blood Pressure Position Pulse Oximetry Oxygen Delivery Method Nasal Cannula Nasal Cannula Oxygen Flow Rate 2 2 Sepsis Recent Fever Within 48 Hours Sepsis New/Unexplained Change in Mental Status Sepsis Action Taken by Nursing Laboratory Data 11/02/22 10:37 11/02/22 10:37 Lab Results 11/02/22 11/02/22 11/02/22 Range/Units 10:37 10:37 11:12 WBC 9.29 (4.8-10.8) K/ul RBC 3.82 L (4.20-5.40) M/uL Hgb 10.2 L (12.0-16.0) g/dl Hct 32.7 L (37.0-47.0) % MCV 85.6 (80.0-100.0) fL MCH 26.7 (25.0-34.0) pg MCHC 31.2 L (32.0-36.0) g/dL RDW Std Deviation 44.4 (36.4-46.3) fL RDW Coeff of Ganga 14.4 (11.5-14.5) % Plt Count 221 (130-400) K/uL MPV 10.2 (9.4-12.4) fL Immature Gran % (Auto) 0.3 % Neut % (Auto) 60.3 % Lymph % (Auto) 28.7 % [place] % (Auto) 8.4 % Eos % (Auto) 2.0 % Baso % (Auto) 0.3 % Neut # (Auto) 5.59 (1.40-6.50) K/uL Lymph # (Auto) 2.67 (1.2-3.4) K/uL [place] # (Auto) 0.78 H (0.11-0.59) K/uL Eos # (Auto) 0.19 (0-0.50) K/uL Baso # (Auto) 0.03 (0-0.2) K/uL Immature Gran # (Auto) 0.03 (0.01-0.20) K/uL Sodium 136 (136-145) mmol/L Potassium 4.4 (3.5-5.1) mmol/L Chloride 96 L (98-107) mmol/L Carbon Dioxide 35 H (21-32) mmol/L Anion Gap 5 (3-11) BUN 42 H (6-23) mg/dl Creatinine 3.05 H (0.6-1.2) mg/dl Est Cr Clr Drug Dosing 18.0 ml/min Est GFR ( Amer) 15.8 ml/min Est GFR (Non-Af Amer) 13.6 ml/min BUN/Creatinine Ratio 13.8 (10-20) Glucose 259 H (70-99(Fasting)) mg/dl Calcium 9.5 (8.5-10.1) mg/dl Total Bilirubin 0.5 (0.2-1.0) mg/dl AST 13 (13-39) U/L ALT 12 (7-52) U/L Alkaline Phosphatase 87 (34-104) U/L Total Creatine Kinase 67 (26-192) U/L Troponin I High Sens 5.9 (0-14) pg/ml Total Protein 7.9 (6.0-8.3) gm/dl Albumin 4.0 (3.4-5.0) gm/dl Globulin 3.9 (2.5-4.0) gm/dl Albumin/Globulin Ratio 1.0 (0.9-2) Lipase 26 (11-82) U/L Urine Color Urine Appearance (Clear) Urine pH (4.5-7.5) Ur Specific Jay (1.000-1.030) Urine Protein (Negative) Urine Glucose (UA) (Negative) Urine Ketones (Negative) Urine Blood (Negative) Urine Nitrite (Negative) Urine Bilirubin (Negative) Urine Urobilinogen (Negative) Ur Leukocyte Esterase (Negative) SARS-CoV-2, RNA, NAAT NEGATIVE (NEGATIVE) 11/02/22 Range/Units 11:25 WBC (4.8-10.8) K/ul RBC (4.20-5.40) M/uL Hgb (12.0-16.0) g/dl Hct (37.0-47.0) % MCV (80.0-100.0) fL MCH (25.0-34.0) pg MCHC (32.0-36.0) g/dL RDW Std Deviation (36.4-46.3) fL RDW Coeff of Ganga (11.5-14.5) % Plt Count (130-400) K/uL MPV (9.4-12.4) fL Immature Gran % (Auto) % Neut % (Auto) % Lymph % (Auto) % [place] % (Auto) % Eos % (Auto) % Baso % (Auto) % Neut # (Auto) (1.40-6.50) K/uL Lymph # (Auto) (1.2-3.4) K/uL [place] # (Auto) (0.11-0.59) K/uL Eos # (Auto) (0-0.50) K/uL Baso # (Auto) (0-0.2) K/uL Immature Gran # (Auto) (0.01-0.20) K/uL Sodium (136-145) mmol/L Potassium (3.5-5.1) mmol/L Chloride (98-107) mmol/L Carbon Dioxide (21-32) mmol/L Anion Gap (3-11) BUN (6-23) mg/dl Creatinine (0.6-1.2) mg/dl Est Cr Clr Drug Dosing ml/min Est GFR ( Amer) ml/min Est GFR (Non-Af Amer) ml/min BUN/Creatinine Ratio (10-20) Glucose (70-99(Fasting)) mg/dl Calcium (8.5-10.1) mg/dl Total Bilirubin (0.2-1.0) mg/dl AST (13-39) U/L ALT (7-52) U/L Alkaline Phosphatase (34-104) U/L Total Creatine Kinase (26-192) U/L Troponin I High Sens (0-14) pg/ml Total Protein (6.0-8.3) gm/dl Albumin (3.4-5.0) gm/dl Globulin (2.5-4.0) gm/dl Albumin/Globulin Ratio (0.9-2) Lipase (11-82) U/L Urine Color Dark Yellow Urine Appearance Clear (Clear) Urine pH 5.0 (4.5-7.5) Ur Specific Jay 1.013 (1.000-1.030) Urine Protein Negative (Negative) Urine Glucose (UA) Negative (Negative) Urine Ketones Trace H (Negative) Urine Blood Negative (Negative) Urine Nitrite Negative (Negative) Urine Bilirubin Negative (Negative) Urine Urobilinogen Negative (Negative) Ur Leukocyte Esterase Negative (Negative) SARS-CoV-2, RNA, NAAT (NEGATIVE) Administered Medications Discontinued Medications Morphine Sulfate (Morphine Sulfate 4 Mg/Ml 1 Ml Carp\Vial) 4 mg IV NOW STA Stop: 11/02/22 10:42 Last Admin: 11/02/22 11:08 Dose: 4 mg Documented By: MARIA VICTORIA Ondansetron HCl (Ondansetron Inj 2 Mg/Ml 2 Ml Vial) 4 mg IV NOW STA Stop: 11/02/22 10:42 Last Admin: 11/02/22 11:08 Dose: 4 mg Documented By: MARIA VICTORIA Imaging Data Radiologist's Impression: Cervical Spine CT 11/02/22 10:38 CT cervical spine wo con CLINICAL HISTORY: fall TECHNIQUE: Multidetector row helical CT of the cervical spine was performed without administration of intravenous contrast. Coronal and sagittal reformations were obtained. Automated dose lowering techniques and/or adjustment according to patient size were utilized for this exam. Comparison: None available at the time of this dictation. FINDINGS: No acute fractures or subluxations are identified. Degenerative changes are seen in the visualized spine. The alignment is normal. Bilateral carotid calcifications are seen IMPRESSION: Degenerative changes without evidence of acute fracture. ACT 112: Negative or not required by law. Electronically signed by: Mikhail Aquino M.D. 11/02/2022 1:55 PM Chest X-Ray 11/02/22 10:38 XR chest 1V portable CLINICAL HISTORY: Chest pain, nonspecific TECHNIQUE: Single frontal radiograph of the chest was obtained. Comparison: Comparison is made to chest radiograph 07/21/2019 FINDINGS: No lines and tubes are seen. Calcified aortic knob is seen. The lungs are clear. No evidence of pleural effusion or pneumothorax. Old healed humeral fracture is noted. IMPRESSION: No acute chest disease. ACT 112: Negative or not required by law. Electronically signed by: Mikhail Aquino M.D. 11/02/2022 11:[address] 11/02/22 10:[address] DOSE: HISTORY: fall TECHNIQUE: Multiaxial CT images of the head were performed without the use of intravenous contrast. Automated exposure control was utilized for this study. A dose lowering technique was utilized adhering to the principles of ALARA. Comparison: None. Findings: Moderate fluid level within the right sphenoid sinus. The mastoid air cells are clear. The calvarium and skull base are intact. There is no mass, dilma pinky, midline shift, acute infarct. White matter hypodensity is nonspecific but suggestive of microvascular ischemic change. The ventricles and sulci demonstrate mild age-related involutional changes. Impression: 1. No acute infarct or intracranial hemorrhage. 2. Acute right sphenoid sinusitis ACT 112: Negative or not required by law. Electronically signed by: Alxeander Calderon M.D. 11/02/2022 1:31 PM Knee X-Ray 11/02/22 10:38 XR knee LT 3V HISTORY: 81 years-old Female l knee pain acute left knee pain without reported trauma COMPARISON: None TECHNIQUE: 3 views of the left knee FINDINGS: Chondrocalcinosis. Mild to moderate tricompartmental osteoarthritis. Mildly demineralized appearance of the bones. No acute fracture, or dislocation identified. Small joint effusion. Lower extremity varicosities. IMPRESSION: 1. No acute fracture or dislocation. 2. 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 ACT 112: Negative or not required by law. The above report was generated using voice recognition software. It may contain grammatical, syntax or spelling errors. Electronically signed by: Tate Lopez M.D. 11/02/2022 11:[address] 11/02/22 12:35 CT chest diagnostic wo con CT DOSE: 1946.59 mGy.cm CLINICAL HISTORY: 81 years-old Female with fall. Acute chest trauma status post fall TECHNIQUE: Multiaxial CT images of the chest were performed without contrast. A dose lowering technique was utilized adhering to the principles of ALARA. COMPARISON: CT cervical spine of same day, CTA chest 06/30/2017 FINDINGS: Mild cardiomegaly with mild coronary arterial calcifications. Atherosclerosis of aorta without aneurysm. Heterogeneity of the thyroid. No lymphadenopathy. Calcified subcarinal lymph node. No pneumothorax, pleural effusion or overt pulmonary edema. Mild subsegmental bibasilar atelectasis versus scarring. There are a few scattered low suspicion bilateral solid pulmonary nodules measuring up to 4 mm, some of which are calcified. No suspicious pulmonary nodules or masses identified. Mild bibasilar bronchiectasis with left basilar mucous plugging. Central airways are otherwise patent. Postoperative changes of the stomach. Cholecystectomy. Mild colonic fecal retention. The soft tissues are within normal limits. Degenerative changes of the shoulders and spine. Mild cortical angulation of the anterior right sixth rib. There are a few healed chronic posterior right-sided rib fractures. Bridging osteophytosis of the thoracic spine. There are a few mild likely chronic thoracic wedge deformities, most pronounced in the upper thoracic spine. IMPRESSION: 1. No acute posttraumatic intrathoracic abnormality identified. 2. Subtle cortical angulation of the anterior right sixth rib suggestive of an age-indeterminate fracture. Correlate with point tenderness. 3. No acute displaced rib fracture or pneumothorax. 4. Mild bibasilar opacities suggestive of atelectasis versus scarring. ACT 112: Negative or not required by law. Electronically signed by: Tate Lopez M.D. 11/02/2022 2:24 PM Discharge Plan Visit Data Chief Complaint: Fall Stated Complaint: FALLS, ANKLE, SHOULDER, HIP PAIN ED Provider: Juve Aleman Discharge Problem: LUCY (acute kidney injury), Fall, Anemia Discharge Instructions Interventions: ED Discharge Assessment Last Done: 11/02/22 15:15
--- NOTE | 2022-11-02 11:07 | XRay Report ---
XR chest 1V portable CLINICAL HISTORY: Chest pain, nonspecific TECHNIQUE: Single frontal radiograph of the chest was obtained. Comparison: Comparison is made to chest radiograph 07/21/2019 FINDINGS: No lines and tubes are seen. Calcified aortic knob is seen. The lungs are clear. No evidence of pleur al effusion or pneumothorax. Old healed humeral fracture is noted. IMPRESSION: No acute chest disease. ACT 112: Negative or not required by law. Electronically signed by: Mikhail Aquino M.D. 11/02/2022 11:05 AM
--- NOTE | 2022-11-02 11:07 | XRay Report ---
XR knee LT 3V HISTORY: 81 years-old Female l knee pain acute left knee pain without reported trauma COMPARISON: None TECHNIQUE: 3 views of the left knee FINDINGS: Chondrocalcinosis. Mild to moderate tricompartmental osteoarthritis. Mildly demineralized appearance of the bones. No acute fracture, or dislocation identified. Small joint effusion. Lower extremity mil icosities. IMPRESSION: 1. No acute fracture or dislocation. 2. 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 ACT 112: Negative or not required by law. The above report was generated using voice recognition software. It may contain grammatical, syntax o r spelling errors. Electronically signed by: Tate Lopez M.D. 11/02/2022 11:05 AM
[2022-11-02 11:42] LABS: BUN Creatinine Ratio 13.8 (10-20); Basophils # (auto) 0.03 K/uL (0-0.2); Basophils % (auto) 0.3 %; Bilirubin,Total 0.5 mg/dl (0.2-1.0); Calcium 9.5 mg/dl (8.5-10.1); Eosinophils # (auto) 0.19 K/uL (0-0.50); Est GFR (African American) 15.8 ml/min; Est GFR (Non-African American) 13.6 ml/min; Globulin 3.9 gm/dl (2.5-4.0); Hematocrit (blood only) 32.7 % (37.0-47.0); Hemoglobin 10.2 g/dl (12.0-16.0); Immature Granulocytes # (auto) 0.03 K/uL (0.01-0.20); Immature Granulocytes % (auto) 0.3 %; Lymphocytes # (auto) 2.67 K/uL (1.2-3.4); Lymphocytes % (auto) 28.7 %; Mean Corpuscular Hemoglobin 26.7 pg (25.0-34.0); Mean Corpuscular Hgb Conc 31.2 g/dL (32.0-36.0); Mean Corpuscular Volume 85.6 fL (80.0-100.0); Mean Platelet Volume 10.2 fL (9.4-12.4); Monocytes # (auto) 0.78 K/uL (0.11-0.59); Monocytes % (auto) 8.4 %; Neutrophils # (auto) 5.59 K/uL (1.40-6.50); Neutrophils % (auto) 60.3 %; Platelet Count 221 K/uL (130-400); Potassium 4.4 mmol/L (3.5-5.1); RDW Coefficient of Variation 14.4 % (11.5-14.5); RDW Standard Deviation 44.4 fL (36.4-46.3); Red Blood Count 3.82 M/uL (4.20-5.40); Total Protein 7.9 gm/dl (6.0-8.3); White Blood Count 9.29 K/ul (4.8-10.8)
[2022-11-02 11:47] LABS: Appearance Urine Clear (Clear); Bilirubin Urine Negative (Negative); Blood Urine Negative (Negative); Color Urine Dark Yellow; Glucose Urine UA Negative (Negative); Ketones Urine Trace (Negative); Leukocyte Esterase Urine Negative (Negative); Nitrite Urine Negative (Negative); Protein Urine Negative (Negative); Specific Gravity Urine 1.013 (1.000-1.030); Urobilinogen Urine Negative (Negative)
[2022-11-02 11:48] LABS: Troponin I High Sensitivity 5.9 pg/ml (0-14)
[2022-11-02] MEDS ORDERED: SODIUM CHLORIDE 0.9% 1000ML 1,000 ML IV ONE (12:35)
--- NOTE | 2022-11-02 13:32 | CT Scan Report ---
HEAD CT NONCONTRAST CT DOSE: HISTORY: fall TECHNIQUE: Multiaxial CT images of the head were performed without the use of intravenous contrast. A utomated exposure control was utilized for this study. A dose lowering technique was utilized adheri ng to the principles of ALARA. Comparison: None. Findings: Moderate fluid level within the right sphenoid sinus. The mastoid air cells are clear. The calvarium and skull base are intact. There is no mass, hematoma, midline shift, acute infarct. White matter hypodensity is nonspecific but suggestive of microvascular ischemic change. The ventricles and sulci demonstrate mild age-related involutional changes. Impression: 1. No acute infarct or intracranial hemorrhage. 2. Acute right sphenoid sinusitis ACT 112: Negative or not required by law. Electronically signed by: Alexander Calderon M.D. 11/02/2022 1:31 PM
--- NOTE | 2022-11-02 13:56 | CT Scan Report ---
CT cervical spine wo con CLINICAL HISTORY: fall TECHNIQUE: Multidetector row helical CT of the cervical spine was performed without administration of intravenous contrast. Coronal and sagittal reformations were obtained. Automated dose lowering techn iques and/or adjustment according to patient size were utilized for this exam. Comparison: None available at the time of this dictation. FINDINGS: No acute fractures or subluxations are identified. Degenerative changes are seen in the visualized sp ine. The alignment is normal. Bilateral carotid calcifications are seen IMPRESSION: Degenerative changes without evidence of acute fracture. ACT 112: Negative or not required by law. Electronically signed by: Mikhail Aquino M.D. 11/02/2022 1:55 PM
--- NOTE | 2022-11-02 14:20 | History & Physical Report ---
Date of Service November 02, 2022 Assessment & Plan (1) Fall: (2) Left knee pain: (3) Sacral pain: (4) Acute worsening of stage 3 chronic kidney disease: (5) Diabetes mellitus, type II: (6) Chronic respiratory failure with hypoxia and hypercapnia: (7) COPD (chronic obstructive pulmonary disease): Plan This is an 81-year-old female who has significant past medical history of chronic hypoxic respiratory failure on 2 L, COPD, HTN, HLD, IDDM type 2,hypothyroidism, A-fib, GERD, depression with anxiety and CKD stage III who presents ED secondary to fall prior to arrival. Fall Left knee pain Sacral pain Admit to telemetry Left knee x-ray without acute abnormality, positive arthritis Obtain sacral x-ray Ice 3 times daily, Tylenol as needed PT/OT Obtain orthostatics to rule out orthostasis as cause of fall Fall possibly in setting of acute dehydration She denies any new medication and typically ambulates with walker Acute on chronic CKD stage III Hold losartan and torsemide Gentle IV fluid herrera cath placed if no improvement in renal function, obtain renal US and consult nephro no evidence of rhabdo Acute sinusitis per imaging pt denies sx, no leukocytosis or fever add flonase no indication for antibiotic at this time T2DM obtain a1c lantus/novolog per protocol hyperglycemic in ED Chronic hypoxic resp failure with hypercarbia and hypoxia continue o2 supplementation continue inhalers obtain abg as pt appears drowsy r/o acidosis HTN hx of afib continue metoprolol, diltiazem hold losartan/torsemide pt is not on anticoagulation, just asa DVT ppx: SQ Heparin Dispo: tele, once LUCY resolves and transition to medical, PT/OT consulted, pt may need rehab FULL CODE PCP: Magaly Kyle PA-C A total of 75 minutes was spent with greater than 50% of that time personally viewing all current laboratory work and diagnostic imaging studies obtained in the ED. Additionally, I was able to view the patients past medication reconciliation and history with direct visualization in the patients chart. Included in the time above, a portion of that time was spent assessing the patient while discussing and collaborating with specialists, if necessary, and making medical decision making on treatment plan. All of the above was collaborated with Dr. Chairez. Please see addendum for further details. History of Present Illness Chief Complaint: Fall prior to arrival. Primary Care Provider: Magaly Kyle PA-C This is an 81-year-old female who has significant past medical history of chronic hypoxic respiratory failure on 2 L, COPD, HTN, HLD, IDDM type 2,hypothyroidism, A-fib, GERD, depression with anxiety and CKD stage III who presents ED secondary to fall prior to arrival. History is obtained from patient. History is slightly unreliable given patient's underlying cognition although she does answer orientation questions appropriately but is drowsy. Currently she complains of sacral pain and left knee pain. She states she fell twice once yesterday and once today prior to arrival. She recalls her falls. She denies any loss of consciousness or hitting her head. She states this morning she was getting up to go to the bathroom whenever she felt like her legs were going to give out. She tried to turn around to sit on her walker when she then slid onto the floor. She was unable to get up. She was on the floor for approximately 4 to 5 hours and EMS was summoned. She lives at home with her sister. She typically ambulates with a walker. She denies any recent illness, fever, chills, sweats, chest pain, shortness breath, cough, nausea, vomiting, abdominal pain, diarrhea. She does admit to being lightheaded and dizzy when moving positions quickly. This has been ongoing for a while. She denies any URI symptoms. She been taking her medications regularly but did not take any today. She denies any new medications or any significant NSAID use. She feels her appetite is sufficient. She does have open areas on her lower extremities from picking. She states her, "skin is dry." Allergies Allergy/AdvReac Type Severity Reaction Status Date / Time Sulfa (Sulfonamide Allergy Intermediate HIVES Verified 11/02/22 11:59 Antibiotics) Home Medications Medication Instructions Recorded Confirmed Type acetaminophen 500 mg tablet 1,000 mg PO Q6H PRN Pain 11/02/22 11/02/22 History (Tylenol Extra Strength) albuterol sulfate 90 mcg/actuation 2 puff inhalation Q4 PRN Shortness 11/02/22 11/02/22 History aerosol inhaler Of Breath aspirin 81 mg tablet,delayed 81 mg PO DAILY 11/02/22 11/02/22 History release atorvastatin 40 mg tablet 40 mg PO DAILY 11/02/22 11/02/22 History budesonide-formoterol HFA 80 1 puff inhalation DIRECTED 11/02/22 11/02/22 History mcg-4.5 mcg/actuation aerosol inhaler (Symbicort) cholecalciferol (vitamin D3) 10 10 mcg PO DAILY 11/02/22 11/02/22 History mcg (400 unit) tablet (Vitamin D3) diltiazem HCl 60 mg 60 mg PO Q12 11/02/22 11/02/22 History capsule,extended release 12 hr dulaglutide 1.5 mg/0.5 mL 1.5 mg subcut .QSUNDAY 11/02/22 11/02/22 History subcutaneous pen injector (Trulicity) escitalopram oxalate 20 mg tablet 20 mg PO DAILY 11/02/22 11/02/22 History famotidine 20 mg tablet 20 mg PO DAILY 11/02/22 11/02/22 History gabapentin 100 mg capsule 200 mg PO BID 11/02/22 11/02/22 History insulin glargine 100 unit/mL (3 20 unit subcut BID 11/02/22 11/02/22 History mL) subcutaneous pen (Lantus Solostar U-100 Insulin) levothyroxine 100 mcg tablet 100 mcg PO DAILY 11/02/22 11/02/22 History losartan 100 mg tablet 100 mg PO DAILY 11/02/22 11/02/22 History metoprolol tartrate 25 mg tablet 12.5 mg PO DAILY 11/02/22 11/02/22 History quetiapine 50 mg tablet 50 mg PO HS 11/02/22 11/02/22 History tolterodine 2 mg capsule,extended 2 mg PO DAILY 11/02/22 11/02/22 History release 24 hr torsemide 20 mg tablet 20 mg PO BID 11/02/22 11/02/22 History Past Med/Surg History Medical History Abdominal abscess Abdominal fluid collection Asthma Chronic respiratory failure with hypoxia and hypercapnia CKD (chronic kidney disease) stage 3, GFR 30-59 ml/min COPD (chronic obstructive pulmonary disease) COPD, group C, by GOLD 2013 classification Dependence on supplemental oxygen Depression Diabetes mellitus Diabetes mellitus, type II Diastolic congestive heart failure Excessive daytime sleepiness Excessive somnolence disorder Femur fracture Hip fracture History of DVT (deep vein thrombosis) Hypertension Hypertension Hypothyroidism Long COVID Osteoporosis 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 Rhinitis Shortness of breath Witnessed apneic spells Surgical History History of cholecystectomy History of partial thyroidectomy History of tonsillectomy and adenoidectomy History of total left hip arthroplasty Status post cholecystectomy Status post hysterectomy Family History Other No pertinent family history in first degree relatives Denies family history of Diabetes Cancer Social History Smoking Status: Never smoker Hx Alcohol Use: No Hx Substance Use: No Preferred Language: Cameroonian Communication Ability: Effective Accounts Receivable Processor Required: No Beliefs That Will Affect Care: None marital status: Current Living Situation: Family Current Living Situation Comment: Lives with sister Feels Safe at Home: Yes Safety Concerns: Feels Safe At This Time Assistive Devices: Glasses, Oxygen - Continuous and Walker Review of Systems Review of Systems: All systems reviewed & are unremarkable except as noted in HPI & below Physical Exam Physical Exam: Constitutional: Elderly, F, vitals as above, NAD, sitting up in bed, pleasant, answers questions approp but is drowsy Head: Normocephalic, Atraumatic Eyes: PERRL, conjunctivae normal, anicteric sclerae ENMT: external ear and nose normal, oropharynx normal dry mucous membranes Neck: trachea midline, no thyromegaly normal visual inspection Respiratory: normal respiratory effort, lungs clear to auscultation, no wheeze, rales, rhonchi. Normal insp/exp effort, no accessory muscle use Cardiovascular: RRR, no murmur, no edema Vessels: no JVD or carotid bruit Chest: normal inspection of chest Abdomen: normal bowel sounds, soft, nontender, no hepatosplenomegaly Musculoskeletal: no cyanosis or clubbing, extremities motor strength 5/5 Skin: + area of excoriation from picking on lower extremity extending to prox thigh and forehead, no sign of infection,warm and dry significant turgor Neurologic: PERRL, EOMI, accommodation nl, no face palsy, no dysarthria CN's II-XI intact bilaterally and moves all extremities Psychiatric: A+Ox3, euthymic affect Lymphatic: no cervical or axillary lymphadenopathy : herrera cath draining yellow urine Results & Data Results & Data ([facility]) Vital Signs (Past 12 Hours) Vital Signs Temp Pulse Resp BP Pulse Ox O2 Del Method O2 Flow Rate 11/02/22 12:41 74 11/02/22 11:30 74 15 150/66 H Nasal Cannula 2 11/02/22 11:00 74 19 166/97 H Nasal Cannula 2 11/02/22 10:37 76 22 150/79 H Nasal Cannula 2 11/02/22 10:47 Nasal Cannula 2 11/02/22 10:12 36.6 C 72 18 147/70 H 99 Room Air Diagnostic Findings Cervical Spine CT 11/02/22 10:38 CT cervical spine wo con CLINICAL HISTORY: fall TECHNIQUE: Multidetector row helical CT of the cervical spine was performed without administration of intravenous contrast. Coronal and sagittal reformations were obtained. Automated dose lowering techniques and/or adjustment according to patient size were utilized for this exam. Comparison: None available at the time of this dictation. FINDINGS: No acute fractures or subluxations are identified. Degenerative changes are seen in the visualized spine. The alignment is normal. Bilateral carotid calcificatio ns are seen IMPRESSION: Degenerative changes without evidence of acute fracture. ACT 112: Negative or not required by law. Electronically signed by: Mikhail Aquino M.D. 11/02/2022 1:55 PM Chest X-Ray 11/02/22 10:38 XR chest 1V portable CLINICAL HISTORY: Chest pain, nonspecific TECHNIQUE: Single frontal radiograph of the chest was obtained. Comparison: Comparison is made to chest radiograph 07/21/2019 FINDINGS: No lines and tubes are seen. Calcified aortic knob is seen. The lungs are clear. No evidence of pleural effusion or pneumothorax. Old healed humeral fracture is noted. IMPRESSION: No acute chest disease. ACT 112: Negative or not required by law. Electronically signed by: Mikhail Aquino M.D. 11/02/2022 11:[address] 11/02/22 10:[address] DOSE: HISTORY: fall TECHNIQUE: Multiaxial CT images of the head were performed without the use of intravenous contrast. Automated exposure control was utilized for this study. A dose lowering technique was utilized adhering to the principles of ALARA. Comparison: None. Findings: Moderate fluid level within the right sphenoid sinus. The mastoid air cells are clear. The calvarium and skull base are intact. There is no mass, hematoma, midline shift, acute infarct. White matter hypodensity is nonspecific but suggestive of microvascular ischemic change. The ventricles and sulci demonstrate mild age-related involutional changes. Impression: 1. No acute infarct or intracranial hemorrhage. 2. Acute right sphenoid sinusitis ACT 112: Negative or not required by law. Electronically signed by: Alexander Calderon M.D. 11/02/2022 1:31 PM Knee X-Ray 11/02/22 10:38 XR knee LT 3V HISTORY: 81 years-old Female l knee pain acute left knee pain without reported trauma COMPARISON: None TECHNIQUE: 3 views of the left knee FINDINGS: Chondrocalcinosis. Mild to moderate tricompartmental osteoarthritis. Mildly demineralized appearance of the bones. No acute fracture, or dislocation identified. Small joint effusion. Lower extremity varicosities. IMPRESSION: 1. No acute fracture or dislocation. 2. 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 ACT 112: Negative or not required by law. The above report was generated using voice recognition software. It may contain grammatical, syntax or spelling errors. Electronically signed by: Tate Lopez M.D. 11/02/2022 11:05 AM Medications Administered Medication List Discontinued Medications Morphine Sulfate (Morphine Sulfate 4 Mg/Ml 1 Ml Carp\\Vial) 4 mg IV NOW STA Stop: 11/02/22 10:42 Last Admin: 11/02/22 11:08 Dose: 4 mg Documented By: MARIA VICTORIA Ondansetron HCl (Ondansetron Inj 2 Mg/Ml 2 Ml Vial) 4 mg IV NOW STA Stop: 11/02/22 10:42 Last Admin: 11/02/22 11:08 Dose: 4 mg Documented By: MARIA VICTORIA ECG Rate (beats per minute): 73 Rhythm: normal sinus Additional Comments: view by me COVID-19 Results Results COVID-19 Adm Lab Results: RBC 3.28 M/uL (4.20-5.40) L 11/03/22 WBC 7.31 K/ul (4.8-10.8) 11/03/22 Hgb 8.8 g/dl (12.0-16.0) L 11/03/22 Hct 28.1 % (37.0-47.0) L 11/03/22 Plt Count 183 K/uL (130-400) 11/03/22 Neutrophils (%) (Auto) 58.0 % 11/03/22 Lymphocytes (%) (Auto) 31.7 % 11/03/22 Monocytes # (Auto) 0.57 K/uL (0.11-0.59) 11/03/22 Eosinophils # (Auto) 0.14 K/uL (0-0.50) 11/03/22 Immature Granulocyte % (Auto) 0.3 % 11/03/22 Neutrophils # (Auto) 4.24 K/uL (1.40-6.50) 11/03/22 Lymphocytes # (Auto) 2.32 K/uL (1.2-3.4) 11/03/22 Monocytes # (Auto) 0.57 K/uL (0.11-0.59) 11/03/22 Eosinophils # (Auto) 0.14 K/uL (0-0.50) 11/03/22 Basophils # (Auto) 0.02 K/uL (0-0.2) 11/03/22 Immature Granulocyte # (Auto) 0.02 K/uL (0.01-0.20) 3 Na 137 mmol/L (136-145) 11/03/22 K 4.6 mmol/L (3.5-5.1) 11/03/22 Cl 100 mmol/L (98-107) 11/03/22 CO2 33 mmol/L (21-32) H 11/03/22 Anion Gap 4 (3-11) 11/03/22 BUN 46 mg/dl (6-23) H 11/03/22 Creatinine 3.27 mg/dl (0.6-1.2) H 11/03/22 BUN/Creatinine Ratio 14.1 (10-20) 11/03/22 Glucose Level 202 mg/dl (70-99(Fasting)) H 11/03/22 Ca 8.6 mg/dl (8.5-10.1) 11/03/22 Total Bilirubin 0.5 mg/dl (0.2-1.0) 11/02/22 AST/SGOT 13 U/L (13-39) 11/02/22 ALT/SGPT 12 U/L (7-52) 11/02/22 Alkaline Phosphatase 87 U/L (34-104) 11/02/22 Total Protein 7.9 gm/dl (6.0-8.3) 11/02/22 Albumin 4.0 gm/dl (3.4-5.0) 11/02/22 Globulin 3.9 gm/dl (2.5-4.0) 11/02/22 Albumin/Globulin Ratio 1.0 (0.9-2) 11/02/22 Total CK 67 U/L (26-192) 11/02/22 SARS-CoV-2, RNA, NAAT NEGATIVE (NEGATIVE) 11/02/22 ABG pH 7.35 (7.35-7.45) 11/02/22 ABG pCO2 61 mmHg (35-46) H 11/02/22 ABG pO2 127 mmHg (80-95) H 11/02/22 ABG HCO3 34 mmol/L (19-24) H 11/02/22 ABG O2 Saturation 99.4 % (90-95) H 11/02/22 ABG Base Excess 6.1 mEq/L (-9-1.8) H 11/02/[address] 11/02/22 Chest X-Ray 11/02/22 Code Status & VTE Plan Code Status FULL CODE VTE Prophylaxis Plan VTE Prophylaxis will be ordered: Yes Supervising Physician Co-Signing Physician Notes Patient was seen and examined independently. Chart reviewed. Case was discussed with JENIFER. Agree with assessment and plan as outlined above (1) Fall Encounter type: initial encounter Qualified Code(s): W19.XXXA - Unspecified fall, initial encounter
--- NOTE | 2022-11-02 14:26 | CT Scan Report ---
CT chest diagnostic wo con CT DOSE: 1946.59 mGy.cm CLINICAL HISTORY: 81 years-old Female with fall. Acute chest trauma status post fall TECHNIQUE: Multiaxial CT images of the chest were performed without contrast. A dose lowering techni que was utilized adhering to the principles of ALARA. COMPARISON: CT cervical spine of same day, CTA chest 06/30/2017 FINDINGS: Mild cardiomegaly with mild coronary arterial calcifications. Atherosclerosis of aorta with out aneurysm. Heterogeneity of the thyroid. No lymphadenopathy. Calcified subcarinal lymph node. No pneumothorax, pleural effusion or overt pulmonary edema. Mild subsegmental bibasilar atelectasis v ersus scarring. There are a few scattered low suspicion bilateral solid pulmonary nodules measuring u p to 4 mm, some of which are calcified. No suspicious pulmonary nodules or masses identified. Mild bi basilar bronchiectasis with left basilar mucous plugging. Central airways are otherwise patent. Postoperative changes of the stomach. Cholecystectomy. Mild colonic fecal retention. The soft tissues are within normal limits. Degenerative changes of the shoulders and spine. Mild cortical angulation of the anterior right sixth rib. There are a few healed chronic posterior right-sided rib fractures. Bridging osteophytosis of the thoracic spine. There are a few mild likely chronic thoracic wedge defo rmities, most pronounced in the upper thoracic spine. IMPRESSION: 1. No acute posttraumatic intrathoracic abnormality identified. 2. Subtle cortical angulation of the anterior right sixth rib suggestive of an age-indeterminate frac ture. Correlate with point tenderness. 3. No acute displaced rib fracture or pneumothorax. 4. Mild bibasilar opacities suggestive of atelectasis versus scarring. ACT 112: Negative or not required by law. Electronically signed by: Tate Lopez M.D. 11/02/2022 2:24 PM
--- NOTE | 2022-11-02 14:45 | Electrocardiogram Report ---
Test Reason : Blood Pressure : / mmHG Vent. Rate : 073 BPM Atrial Rate : 073 BPM P-R Int : 192 ms QRS Dur : 090 ms QT Int : 422 ms P-R-T Axes : 080 036 055 degrees QTc Int : 464 ms Poor data quality, interpretation may be adversely affected Normal sinus rhythm with 1st degree A-V block Normal ECG When compared with ECG of 10-SEP-2021 17:06, WA interval has decreased Confirmed by Lalo Medina ([id number]) on 11/02/2022 2:44:43 PM Referred By: Confirmed By:Lalo Medina
[2022-11-02 15:17] LABS: Base Excess ABG 6.1 mEq/L (-9-1.8); HCO3 ABG 34 mmol/L (19-24); Oxygen Saturation ABG 99.4 % (90-95); PCO2 ABG 61 mmHg (35-46); PO2 ABG 127 mmHg (80-95); pH ABG 7.35 (7.35-7.45)
[2022-11-02 15:25] LABS: Allen Test Pos (Pos)
[2022-11-02] MEDS ORDERED: GLUCOSE 10 TAB/TUBE PO PRN (15:38)
[2022-11-02] MEDS ORDERED: GLUCOSE 40% GEL 15 GM TUBE PO PRN (15:38)
[2022-11-02] MEDS ORDERED: DEXTROSE 50% 50 ML SYRINGE IV PRN (15:38)
[2022-11-02] MEDS ORDERED: GLUCAGON FOR INJ 1 MG VIAL SQ PRN (15:38)
[2022-11-02] MEDS ORDERED: POLYETHYLENE (MIRALAX) 17 GM PACK PO PRN (15:38)
[2022-11-02] MEDS ORDERED: CARBOHYDRATES FOR HYPOGLYCEMIA PO PRN (15:38)
[2022-11-02] MEDS ORDERED: ACETAMINOPHEN 325 MG TAB PO PRN (15:38)
[2022-11-02] MEDS ORDERED: ONDANSETRON INJ 2 MG/ML 2 ML VIAL IV PRN (15:38)
[2022-11-02] MEDS ORDERED: ALBUTEROL HFA 8 GM INHALER INH PRN (15:38)
[2022-11-02] MEDS: INSULIN ASPART PER UNIT SC SCH ×2 (17:04→20:34)
[2022-11-02] MEDS: FLUTICASONE PROPIONATE NA SPR 16 GM BTL SCH (17:05)
[2022-11-02] MEDS: SODIUM CHLORIDE 0.9% 1000ML 1,000 ML IV SCH (17:05)
--- NOTE | 2022-11-02 20:27 | XRay Report ---
XR sacrum coccyx min 2V CLINICAL HISTORY: fall, pain COMPARISON: Pelvis x-ray May 10, [address] of the abdomen and pelvis February 09, 2019. FINDINGS: Sacroiliac joints and symphysis pubis are intact. Visualized portions of the left hip arthr oplasty are unremarkable. No sacral or coccygeal fracture is identified by radiography. No acute frac ture is identified within visualized portions of the pelvis. IMPRESSION: No acute fracture within the sacrum or coccyx identified. ACT 112: Negative or not required by law. Electronically signed by: Guille Newman M.D. 11/02/2022 8:25 PM
[2022-11-02] MEDS: LANTUS PER UNIT CHARGE SQ SCH (20:34)
[2022-11-02] MEDS: HEPARIN SOD 5,000 UNIT/0.5 ML VIAL SQ SCH (20:38)
[2022-11-02] MEDS: QUEtiapine FUMARATE 25 MG TABLET PO SCH (20:41)
[2022-11-02] MEDS: GABAPENTIN 100 MG CAP PO SCH (20:42)
[2022-11-02] MEDS: EUCERIN CR 120 GM JAR EXT SCH (20:43)
[2022-11-02] MEDS: dilTIAZem HCl 60 MG TAB PO SCH (23:02)
[2022-11-03] MEDS: SODIUM CHLORIDE 0.9% 1000ML 1,000 ML IV SCH (06:12)
[2022-11-03] MEDS: HEPARIN SOD 5,000 UNIT/0.5 ML VIAL SQ SCH ×3 (06:14→21:44)
[2022-11-03] MEDS: LEVOTHYROXINE SODIUM 100 MCG TABLET PO SCH (06:15)
[2022-11-03 06:51] LABS: Basophils # (auto) 0.02 K/uL (0-0.2); Basophils % (auto) 0.3 %; Eosinophils # (auto) 0.14 K/uL (0-0.50); Eosinophils % (auto) 1.9 %; Hematocrit (blood only) 28.1 % (37.0-47.0); Hemoglobin 8.8 g/dl (12.0-16.0); Immature Granulocytes # (auto) 0.02 K/uL (0.01-0.20); Immature Granulocytes % (auto) 0.3 %; Lymphocytes # (auto) 2.32 K/uL (1.2-3.4); Lymphocytes % (auto) 31.7 %; Mean Corpuscular Hemoglobin 26.8 pg (25.0-34.0); Mean Corpuscular Hgb Conc 31.3 g/dL (32.0-36.0); Mean Corpuscular Volume 85.7 fL (80.0-100.0); Mean Platelet Volume 10.1 fL (9.4-12.4); Monocytes # (auto) 0.57 K/uL (0.11-0.59); Monocytes % (auto) 7.8 %; Neutrophils # (auto) 4.24 K/uL (1.40-6.50); Platelet Count 183 K/uL (130-400); RDW Coefficient of Variation 14.4 % (11.5-14.5); RDW Standard Deviation 44.5 fL (36.4-46.3); Red Blood Count 3.28 M/uL (4.20-5.40); White Blood Count 7.31 K/ul (4.8-10.8)
[2022-11-03 07:16] LABS: BUN Creatinine Ratio 14.1 (10-20); Calcium 8.6 mg/dl (8.5-10.1); Creatinine Clr Calc Pharmacy 16.7 ml/min; Est GFR (African American) 14.5 ml/min; Est GFR (Non-African American) 12.5 ml/min; Magnesium 2.4 mg/dl (1.7-2.4); Potassium 4.6 mmol/L (3.5-5.1)
[2022-11-03 08:08] LABS: Estimated Average Glucose 212 mg/dl
[2022-11-03] MEDS: INSULIN ASPART PER UNIT SC SCH ×4 (08:31→21:44)
[2022-11-03] MEDS: CHOLECALCIFEROL 400 UNITS 10 MCG TAB PO SCH (08:52)
[2022-11-03] MEDS: ESCITALOPRAM OXALATE 20 MG TAB PO SCH (08:52)
[2022-11-03] MEDS: METOPROLOL TARTRATE 25 MG TAB PO SCH (08:52)
[2022-11-03] MEDS: ATORVASTATIN 40 MG TAB PO SCH (08:52)
[2022-11-03] MEDS: FAMOTIDINE 20 MG TAB PO SCH (08:52)
[2022-11-03] MEDS: dilTIAZem HCl 60 MG TAB PO SCH ×2 (08:52→20:14)
[2022-11-03] MEDS: ASPIRIN 81 MG ECTAB PO SCH (08:52)
[2022-11-03] MEDS: GABAPENTIN 100 MG CAP PO SCH ×2 (08:52→20:13)
[2022-11-03] MEDS: FLUTICASONE PROPIONATE NA SPR 16 GM BTL SCH (08:54)
[2022-11-03] MEDS: TOLTERODINE TARTRATE LA 2 MG CAPCR PO SCH (08:54)
[2022-11-03] MEDS: FLUTICASONE/VILANTEROL 100/25MCG 14 PUFFS/INHALER INH SCH (08:54)
--- NOTE | 2022-11-03 08:54 | Hospitalist Progress Note ---
Date of Service November 03, 2022 Assessment & Plan (1) Fall: (2) Left knee pain: (3) Sacral pain: (4) Acute worsening of stage 3 chronic kidney disease: (5) Diabetes mellitus, type II: (6) Chronic respiratory failure with hypoxia and hypercapnia: (7) COPD (chronic obstructive pulmonary disease): Plan 81 yo f female w/ chronic hypoxic respiratory failure on 2 L, COPD, HTN, HLD, IDDM type 2,hypothyroidism, A-fib, GERD, depression with anxiety and CKD stage III who presents ED secondary to fall prior to arrival. Managed also for LUCY. Fall Left knee pain Sacral pain Admit to telemetry Left knee x-ray without acute abnormality, positive arthritis Obtained sacral x-ray - no fx also reports tenderness behind the knee - will obtain doppler Ice 3 times daily, Tylenol as needed PT/OT Obtain orthostatics to rule out orthostasis as cause of fall Fall possibly in setting of acute dehydration She denies any new medication and typically ambulates with walker Acute on chronic CKD stage III Hold losartan and torsemide Gentle IV fluid herrera cath placed as no improvement in renal function, ordered renal US and consulted nephrology no evidence of rhabdo Acute sinusitis per imaging pt denies sx, no leukocytosis or fever add flonase no indication for antibiotic at this time T2DM current a1c 9% lantus/novolog per protocol hyperglycemic in ED Chronic hypoxic resp failure with hypercarbia and hypoxia continue o2 supplementation continue inhalers HTN hx of afib continue metoprolol, diltiazem hold losartan/torsemide pt is not on anticoagulation (d/t to risk of fall), just asa DVT ppx: SQ Heparin Dispo: tele, once LUCY resolves and transition to medical, PT/OT consulted, pt may need rehab FULL CODE PCP: Magaly Kyle PA-C Admission and Anticipated Discharge Date Admission Date: November 02, 2022 Subjective Pt seen in follow up of fall and LUCY on CKD diuretics held on admission and pt received IVF - US renal ordered now and nephrology consulted Currently laying in bed, in no acute distress She is on 2 L of oxygen, which is her baseline Denies fevers chills chest pain shortness of breath, denies abdominal pain Tells me she takes torsemide for lower extremity edema She thinks she is drinking plenty of fluids Only complains of some pain behind her left knee Review of Systems Review of Systems: All systems reviewed & are unremarkable except as noted in Subjective Physical Exam Physical Exam: Constitutional: Elderly obese , F, NAD on 2L suppl. O2, chronically ill appearing Head: Normocephalic, Atraumatic Eyes: PERRL,conjunctivae normal, anicteric sclerae ENMT: external ear and nose normal, oropharynx normal dry mucous membranes Neck: normal visual inspection Respiratory: normal respiratory effort, lungs clear to auscultation, no wheeze, rales, rhonchi. Normal insp/exp effort, no accessory muscle use Cardiovascular: RRR, no murmur, no edema Vessels: no JVD or carotid bruit Chest: normal inspection of chest Abdomen: normal bowel sounds, soft, nontender Musculoskeletal:moves extremities, no erythema noted, few excoriations on lower extremities noted, minimal tenderness on palpation posterior knee left lower extremity Skin: + area of excoriation from picking on lower extremity extending to prox thigh and forehead, no sign of infection,warm and dry Neuro/Psych:Awake alert oriented, answering simple questions appropriately, speech is fluent but slow, PERRL,no face palsy,moves all extremities : herrera cath draining yellow urine Results & Data Results & Data ([facility]) Vital Signs (Past 12 Hours) Vital Signs Temp Pulse Resp BP Pulse Ox O2 Del Method O2 Flow Rate 11/03/22 07:27 36.8 C 92 H 18 104/55 L 94 Nasal Cannula 2 11/03/22 03:52 37.7 C H 96 H 20 115/67 95 Nasal Cannula 11/02/22 22:29 36.8 C 90 20 118/79 93 Nasal Cannula 2 11/02/22 21:50 Nasal Cannula 2 Laboratory Results 11/03/22 11/03/22 11/03/22 Range/Units 07:53 06:22 06:22 WBC (4.8-10.8) K/ul RBC (4.20-5.40) M/uL Hgb (12.0-16.0) g/dl Hct (37.0-47.0) % MCV (80.0-100.0) fL MCH (25.0-34.0) pg MCHC (32.0-36.0) g/dL RDW Std Deviation (36.4-46.3) fL RDW Coeff of Ganga (11.5-14.5) % Plt Count (130-400) K/uL MPV (9.4-12.4) fL Immature Gran % (Auto) % Neut % (Auto) % Lymph % (Auto) % [place] % (Auto) % Eos % (Auto) % Baso % (Auto) % Neut # (Auto) (1.40-6.50) K/uL Lymph # (Auto) (1.2-3.4) K/uL Berg[place] # (Auto) (0.11-0.59) K/uL Eos # (Auto) (0-0.50) K/uL Baso # (Auto) (0-0.2) K/uL Immature Gran # (Auto) (0.01-0.20) K/uL ABG pH (7.35-7.45) ABG pCO2 (35-46) mmHg ABG pO2 (80-95) mmHg ABG HCO3 (19-24) mmol/L ABG O2 Saturation (90-95) % ABG Base Excess (-9-1.8) mEq/L Valeriy Test (Pos) Oxygen Given Sodium 137 (136-145) mmol/L Potassium 4.6 (3.5-5.1) mmol/L Chloride 100 (98-107) mmol/L Carbon Dioxide 33 H (21-32) mmol/L Anion Gap 4 (3-11) BUN 46 H (6-23) mg/dl Creatinine 3.27 H (0.6-1.2) mg/dl Est Cr Clr Drug Dosing 16.7 ml/min Est GFR ( Amer) 14.5 ml/min Est GFR (Non-Af Amer) 12.5 ml/min BUN/Creatinine Ratio 14.1 (10-20) Glucose 202 H (70-99(Fasting)) mg/dl POC Glucose 203 H (70-99) mg/dl Estimat Average Glucose 212 mg/dl Hemoglobin A1c 9.0 H (4.5-5.6) % Calcium 8.6 (8.5-10.1) mg/dl Magnesium 2.4 (1.7-2.4) mg/dl Total Bilirubin (0.2-1.0) mg/dl AST (13-39) U/L ALT (7-52) U/L Alkaline Phosphatase (34-104) U/L Total Creatine Kinase (26-192) U/L Troponin I High Sens (0-14) pg/ml Total Protein (6.0-8.3) gm/dl Albumin (3.4-5.0) gm/dl Globulin (2.5-4.0) gm/dl Albumin/Globulin Ratio (0.9-2) Lipase (11-82) U/L Urine Color Urine Appearance (Clear) Urine pH (4.5-7.5) Ur Specific [place] (1.000-1.030) Urine Protein (Negative) Urine Glucose (UA) (Negative) Urine Ketones (Negative) Urine Blood (Negative) Urine Nitrite (Negative) Urine Bilirubin (Negative) Urine Urobilinogen (Negative) Ur Leukocyte Esterase (Negative) SARS-CoV-2, RNA, NAAT (NEGATIVE) 11/03/22 11/02/22 11/02/22 Range/Units 06:22 20:22 16:32 WBC 7.31 (4.8-10.8) K/ul RBC 3.28 L (4.20-5.40) M/uL Hgb 8.8 L (12.0-16.0) g/dl Hct 28.1 L (37.0-47.0) % MCV 85.7 (80.0-100.0) fL MCH 26.8 (25.0-34.0) pg MCHC 31.3 L (32.0-36.0) g/dL RDW Std Deviation 44.5 (36.4-46.3) fL RDW Coeff of Ganga 14.4 (11.5-14.5) % Plt Count 183 (130-400) K/uL MPV 10.1 (9.4-12.4) fL Immature Gran % (Auto) 0.3 % Neut % (Auto) 58.0 % Lymph % (Auto) 31.7 % Berg[place] % (Auto) 7.8 % Eos % (Auto) 1.9 % Baso % (Auto) 0.3 % Neut # (Auto) 4.24 (1.40-6.50) K/uL Lymph # (Auto) 2.32 (1.2-3.4) K/uL Bergen # (Auto) 0.57 (0.11-0.59) K/uL Eos # (Auto) 0.14 (0-0.50) K/uL Baso # (Auto) 0.02 (0-0.2) K/uL Immature Gran # (Auto) 0.02 (0.01-0.20) K/uL ABG pH (7.35-7.45) ABG pCO2 (35-46) mmHg ABG pO2 (80-95) mmHg ABG HCO3 (19-24) mmol/L ABG O2 Saturation (90-95) % ABG Base Excess (-9-1.8) mEq/L Valeriy Test (Pos) Oxygen Given Sodium (136-145) mmol/L Potassium (3.5-5.1) mmol/L Chloride (98-107) mmol/L Carbon Dioxide (21-32) mmol/L Anion Gap (3-11) BUN (6-23) mg/dl Creatinine (0.6-1.2) mg/dl Est Cr Clr Drug Dosing ml/min Est GFR ( Amer) ml/min Est GFR (Non-Af Amer) ml/min BUN/Creatinine Ratio (10-20) Glucose (70-99(Fasting)) mg/dl POC Glucose 201 H 192 H (70-99) mg/dl Estimat Average Glucose mg/dl Hemoglobin A1c (4.5-5.6) % Calcium (8.5-10.1) mg/dl Magnesium (1.7-2.4) mg/dl Total Bilirubin (0.2-1.0) mg/dl AST (13-39) U/L ALT (7-52) U/L Alkaline Phosphatase (34-104) U/L Total Creatine Kinase (26-192) U/L Troponin I High Sens (0-14) pg/ml Total Protein (6.0-8.3) gm/dl Albumin (3.4-5.0) gm/dl Globulin (2.5-4.0) gm/dl Albumin/Globulin Ratio (0.9-2) Lipase (11-82) U/L Urine Color Urine Appearance (Clear) Urine pH (4.5-7.5) Ur Specific [place] (1.000-1.030) Urine Protein (Negative) Urine Glucose (UA) (Negative) Urine Ketones (Negative) Urine Blood (Negative) Urine Nitrite (Negative) Urine Bilirubin (Negative) Urine Urobilinogen (Negative) Ur Leukocyte Esterase (Negative) SARS-CoV-2, RNA, NAAT (NEGATIVE) 11/02/22 11/02/22 11/02/22 Range/Units 15:04 11:25 11:12 WBC (4.8-10.8) K/ul RBC (4.20-5.40) M/uL Hgb (12.0-16.0) g/dl Hct (37.0-47.0) % MCV (80.0-100.0) fL MCH (25.0-34.0) pg MCHC (32.0-36.0) g/dL RDW Std Deviation (36.4-46.3) fL RDW Coeff of Ganga (11.5-14.5) % Plt Count (130-400) K/uL MPV (9.4-12.4) fL Immature Gran % (Auto) % Neut % (Auto) % Lymph % (Auto) % Berg[place] % (Auto) % Eos % (Auto) % Baso % (Auto) % Neut # (Auto) (1.40-6.50) K/uL Lymph # (Auto) (1.2-3.4) K/uL Berg[place] # (Auto) (0.11-0.59) K/uL Eos # (Auto) (0-0.50) K/uL Baso # (Auto) (0-0.2) K/uL Immature Gran # (Auto) (0.01-0.20) K/uL ABG pH 7.35 (7.35-7.45) ABG pCO2 61 H (35-46) mmHg ABG pO2 127 H (80-95) mmHg ABG HCO3 34 H (19-24) mmol/L ABG O2 Saturation 99.4 H (90-95) % ABG Base Excess 6.1 H (-9-1.8) mEq/L Valeriy Test Pos (Pos) Oxygen Given 2L Sodium (136-145) mmol/L Potassium (3.5-5.1) mmol/L Chloride (98-107) mmol/L Carbon Dioxide (21-32) mmol/L Anion Gap (3-11) BUN (6-23) mg/dl Creatinine (0.6-1.2) mg/dl Est Cr Clr Drug Dosing ml/min Est GFR ( Amer) ml/min Est GFR (Non-Af Amer) ml/min BUN/Creatinine Ratio (10-20) Glucose (70-99(Fasting)) mg/dl POC Glucose (70-99) mg/dl Estimat Average Glucose mg/dl Hemoglobin A1c (4.5-5.6) % Calcium (8.5-10.1) mg/dl Magnesium (1.7-2.4) mg/dl Total Bilirubin (0.2-1.0) mg/dl AST (13-39) U/L ALT (7-52) U/L Alkaline Phosphatase (34-104) U/L Total Creatine Kinase (26-192) U/L Troponin I High Sens (0-14) pg/ml Total Protein (6.0-8.3) gm/dl Albumin (3.4-5.0) gm/dl Globulin (2.5-4.0) gm/dl Albumin/Globulin Ratio (0.9-2) Lipase (11-82) U/L Urine Color Dark Yellow Urine Appearance Clear (Clear) Urine pH 5.0 (4.5-7.5) Ur Specific [place] 1.013 (1.000-1.030) Urine Protein Negative (Negative) Urine Glucose (UA) Negative (Negative) Urine Ketones Trace H (Negative) Urine Blood Negative (Negative) Urine Nitrite Negative (Negative) Urine Bilirubin Negative (Negative) Urine Urobilinogen Negative (Negative) Ur Leukocyte Esterase Negative (Negative) SARS-CoV-2, RNA, NAAT NEGATIVE (NEGATIVE) 11/02/22 11/02/22 Range/Units 10:37 10:37 WBC 9.29 (4.8-10.8) K/ul RBC 3.82 L (4.20-5.40) M/uL Hgb 10.2 L (12.0-16.0) g/dl Hct 32.7 L (37.0-47.0) % MCV 85.6 (80.0-100.0) fL MCH 26.7 (25.0-34.0) pg MCHC 31.2 L (32.0-36.0) g/dL RDW Std Deviation 44.4 (36.4-46.3) fL RDW Coeff of Ganga 14.4 (11.5-14.5) % Plt Count 221 (130-400) K/uL MPV 10.2 (9.4-12.4) fL Immature Gran % (Auto) 0.3 % Neut % (Auto) 60.3 % Lymph % (Auto) 28.7 % Bergen % (Auto) 8.4 % Eos % (Auto) 2.0 % Baso % (Auto) 0.3 % Neut # (Auto) 5.59 (1.40-6.50) K/uL Lymph # (Auto) 2.67 (1.2-3.4) K/uL Bergen # (Auto) 0.78 H (0.11-0.59) K/uL Eos # (Auto) 0.19 (0-0.50) K/uL Baso # (Auto) 0.03 (0-0.2) K/uL Immature Gran # (Auto) 0.03 (0.01-0.20) K/uL ABG pH (7.35-7.45) ABG pCO2 (35-46) mmHg ABG pO2 (80-95) mmHg ABG HCO3 (19-24) mmol/L ABG O2 Saturation (90-95) % ABG Base Excess (-9-1.8) mEq/L Valeriy Test (Pos) Oxygen Given Sodium 136 (136-145) mmol/L Potassium 4.4 (3.5-5.1) mmol/L Chloride 96 L (98-107) mmol/L Carbon Dioxide 35 H (21-32) mmol/L Anion Gap 5 (3-11) BUN 42 H (6-23) mg/dl Creatinine 3.05 H (0.6-1.2) mg/dl Est Cr Clr Drug Dosing 18.0 ml/min Est GFR ( Amer) 15.8 ml/min Est GFR (Non-Af Amer) 13.6 ml/min BUN/Creatinine Ratio 13.8 (10-20) Glucose 259 H (70-99(Fasting)) mg/dl POC Glucose (70-99) mg/dl Estimat Average Glucose mg/dl Hemoglobin A1c (4.5-5.6) % Calcium 9.5 (8.5-10.1) mg/dl Magnesium (1.7-2.4) mg/dl Total Bilirubin 0.5 (0.2-1.0) mg/dl AST 13 (13-39) U/L ALT 12 (7-52) U/L Alkaline Phosphatase 87 (34-104) U/L Total Creatine Kinase 67 (26-192) U/L Troponin I High Sens 5.9 (0-14) pg/ml Total Protein 7.9 (6.0-8.3) gm/dl Albumin 4.0 (3.4-5.0) gm/dl Globulin 3.9 (2.5-4.0) gm/dl Albumin/Globulin Ratio 1.0 (0.9-2) Lipase 26 (11-82) U/L Urine Color Urine Appearance (Clear) Urine pH (4.5-7.5) Ur Specific [place] (1.000-1.030) Urine Protein (Negative) Urine Glucose (UA) (Negative) Urine Ketones (Negative) Urine Blood (Negative) Urine Nitrite (Negative) Urine Bilirubin (Negative) Urine Urobilinogen (Negative) Ur Leukocyte Esterase (Negative) SARS-CoV-2, RNA, NAAT (NEGATIVE) Medications Administered Current Inpatient Medications Acetaminophen (Acetaminophen 325 Mg Tab) 650 mg PO Q4H PRN PRN Reason: Pain or Fever Stop: 12/02/22 15:37 Last Admin: 11/02/22 20:43 Dose: 650 mg Albuterol (Albuterol Hfa 8 Gm Inhaler) 2 puffs INH Q4 PRN PRN Reason: Shortness Of Breath Stop: 12/02/22 15:37 Aspirin (Aspirin 81 Mg Ectab) 81 mg PO DAILY SUJEY Stop: 12/03/22 08:59 Atorvastatin Calcium (Atorvastatin 40 Mg Tab) 40 mg PO DAILY SUJEY Stop: 12/03/22 08:59 Dextrose (Dextrose 50% 50 Ml Syringe) 25 - 50 ml IV UD PRN; Protocol PRN Reason: Hypoglycemia Protocol Stop: 12/02/22 15:37 Diltiazem HCl (Diltiazem Hcl 60 Mg Tab) 60 mg PO Q12 SUJEY Stop: 12/02/22 22:59 Last Admin: 11/02/22 23:02 Dose: 60 mg Escitalopram Oxalate (Escitalopram Oxalate 20 Mg Tab) 20 mg PO DAILY SUJEY Stop: 12/03/22 08:59 Famotidine (Famotidine 20 Mg Tab) 20 mg PO DAILY SUJEY Stop: 12/03/22 08:59 Fluticasone Propionate (Fluticasone Propionate Na Spr 16 Gm Btl) 2 sprays NA DAILY SUJEY Stop: 12/02/22 15:37 Last Admin: 11/02/22 17:05 Dose: 2 sprays Fluticasone/Vilanterol (Fluticasone/Vilanterol 100/25mcg 14 Puffs/Inhaler) 1 puffs INH DAILY SUJEY Stop: 12/03/22 08:59 Gabapentin (Gabapentin 100 Mg Cap) 200 mg PO BID SUJEY Stop: 12/02/22 20:59 Last Admin: 11/02/22 20:42 Dose: 200 mg Glucagon (Glucagon For Inj 1 Mg Vial) 1 mg SQ UD PRN; Protocol PRN Reason: Hypoglycemia Protocol Stop: 12/02/22 15:37 Glucose (Glucose 10 Tab/Tube) 4 - 8 tab PO UD PRN; Protocol PRN Reason: Hypoglycemia Treatment Stop: 12/02/22 15:37 Glucose (Glucose 40% Gel 15 Gm Tube) 15 - 30 gm PO UD PRN; Protocol PRN Reason: Hypoglycemia Protocol Stop: 12/02/22 15:37 Heparin Sodium (Porcine) (Heparin Sod 5,000 Unit/0.5 Ml Vial) 5,000 units SQ Q8 SUJEY Stop: 12/02/22 21:59 Last Admin: 11/03/22 06:14 Dose: 5,000 units Sodium Chloride (Nss 1000ml) 1,000 mls @ 80 mls/hr IV .[id number] [facility] Stop: 11/03/22 16:37 Last Admin: 11/03/22 06:12 Dose: 80 mls/hr Insulin Aspart (Insulin Aspart Per Unit) 0 units SC ACHS SUJEY Stop: 12/02/22 16:29 Last Admin: 11/03/22 08:31 Dose: 9 units Insulin Glargine (Lantus Per Unit Charge) 0 units SQ BID SUJEY Stop: 12/02/22 20:59 Last Admin: 11/02/22 20:34 Dose: 15 units Levothyroxine Sodium (Levothyroxine Sodium 100 Mcg Tablet) 100 mcg PO DAILYBB SUJEY Stop: 12/03/22 06:29 Last Admin: 11/03/22 06:15 Dose: 100 mcg Metoprolol Tartrate (Metoprolol Tartrate 25 Mg Tab) 12.5 mg PO DAILY [facility] Stop: 12/03/22 08:59 Miscellaneous (Carbohydrates For Hypoglycemia ) 15 - 30 gm PO UD PRN PRN Reason: Hypoglycemia Protocol Stop: 12/02/22 15:37 Multi-Ingredient Cream (Eucerin Cr 120 Gm Jar) 1 appln EXT BID SUJEY Stop: 12/02/22 20:59 Last Admin: 11/02/22 20:43 Dose: 1 appln Ondansetron HCl (Ondansetron Inj 2 Mg/Ml 2 Ml Vial) 4 mg IV Q6H PRN PRN Reason: Nausea Stop: 12/02/22 15:37 Polyethylene Glycol (Polyethylene (Miralax) 17 Gm Pack) 17 gm PO DAILY PRN PRN Reason: Constipation Stop: 12/02/22 15:37 Quetiapine Fumarate (Quetiapine Fumarate 25 Mg Tablet) 50 mg PO HS SUJEY Stop: 12/02/22 20:59 Last Admin: 11/02/22 20:41 Dose: 50 mg Tolterodine Tartrate (Tolterodine Tartrate La 2 Mg Capcr) 2 mg PO DAILY SUJEY Stop: 12/03/22 08:59 Vitamin D (Cholecalciferol 400 Units 10 Mcg Tab) 400 units PO DAILY SUJEY Stop: 12/03/22 08:59
[2022-11-03] MEDS: EUCERIN CR 120 GM JAR EXT SCH ×2 (08:55→20:14)
[2022-11-03] MEDS: LANTUS PER UNIT CHARGE SQ SCH ×2 (09:04→21:45)
--- NOTE | 2022-11-03 10:00 | Nephrology Consultation ---
Date of Consultation November 03, 2022 Assessment & Plan (1) LUCY (acute kidney injury): stage 2 nonoliguric acute on chronic renal failure ? etiology; LUCY present on arrival after being better than baseline 2-3 wks prior to admission. prerenal versus ischemic ATN in the setting of excessively dosed losartan/torsemide; ? if pt adherent to med regimen or may have had other meds than on list prior to admission given her challenges giving hx no evidence of sepsis or rhabdomyolysis, no IV contrast or IV abtx; she is relatively hypotensive -continue gentle hydration w/ NS -f/u renal u/s >> unremarkable -agree w/ cont to hold torsemide and losartan >low threshold for TTE if hypotension persists <<>>covid affected her lungs so could in theory affect her heart as well -daily bmp -strict I/O -no indication currently for dialysis discussion but cannot rule out need (2) Acute worsening of stage 3 chronic kidney disease: as above History of Present Illness Reason for Consultation: LUCY Requesting Physician: Dr Lopez Attending Physician: Lito Lopez MD History of Present Illness 81 y/o F whom I'm asked to see for LUCY was admitted here yesterday for mgt of L knee and sacral pain after a fall and noted to have Lucy on CKD w/ presenting creatinine 3.1, up to 3.3 this am. Pt recently established care at [facility] last month after following for 2-3 years w/ [facility]. Noted on est care to have AFib w/ no anticoagulation forunclear reasons. [facility] team continues to await outside records from prior PCP. No kidney med changes at that OV > pt does take torsemide bid and full dose losartan as OP. 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 Her baseline creatinine had been 1.1-1.2 for eGFR low 40s in [id number]. Next records are in [facility] this year w/ creatinine 1.7 on 09/10/21 and 1.3 on 10/15/21. no recent [facility] encounters or med changes documented in [facility]. Torsemide, losartan held on presentation; no IV contrast on presentation; no evidence of fracture and CK wnl. no evidence of infection. Pt currently receiving 3rd L of NS. The patient was seen on afternoon rounds > she denied musculoskeletal pain or shortness of breath or edema or new/worrisome voiding concerns. She did complain of dry eyes and diffuse itching. She can give few details of her fall or of why she's in the hospital. She does deny nsaid use prior to arrival and seems to know what they are. Lives w/ her sister in a proivate home. Lifelong nonsmoker. Allergies Allergy/AdvReac Type Severity Reaction Status Date / Time Sulfa (Sulfonamide Allergy Intermediate HIVES Verified 11/02/22 11:59 Antibiotics) Home Medications Medication Instructions Recorded Confirmed Type acetaminophen 500 mg tablet 1,000 mg PO Q6H PRN Pain 11/02/22 11/02/22 History (Tylenol Extra Strength) albuterol sulfate 90 mcg/actuation 2 puff inhalation Q4 PRN Shortness 11/02/22 11/02/22 History aerosol inhaler Of Breath aspirin 81 mg tablet,delayed 81 mg PO DAILY 11/02/22 11/02/22 History release atorvastatin 40 mg tablet 40 mg PO DAILY 11/02/22 11/02/22 History budesonide-formoterol HFA 80 1 puff inhalation DIRECTED 11/02/22 11/02/22 History mcg-4.5 mcg/actuation aerosol inhaler (Symbicort) cholecalciferol (vitamin D3) 10 10 mcg PO DAILY 11/02/22 11/02/22 History mcg (400 unit) tablet (Vitamin D3) diltiazem HCl 60 mg 60 mg PO Q12 11/02/22 11/02/22 History capsule,extended release 12 hr dulaglutide 1.5 mg/0.5 mL 1.5 mg subcut .QSUNDAY 11/02/22 11/02/22 [facility] escitalopram oxalate 20 mg tablet 20 mg PO DAILY 11/02/22 11/02/22 History famotidine 20 mg tablet 20 mg PO DAILY 11/02/22 11/02/22 History gabapentin 100 mg capsule 200 mg PO BID 11/02/22 11/02/22 History insulin glargine 100 unit/mL (3 20 unit subcut BID 11/02/22 11/02/22 History mL) subcutaneous pen (Lantus Solostar U-100 Insulin) levothyroxine 100 mcg tablet 100 mcg PO DAILY 11/02/22 11/02/22 History losartan 100 mg tablet 100 mg PO DAILY 11/02/22 11/02/22 History metoprolol tartrate 25 mg tablet 12.5 mg PO DAILY 11/02/22 11/02/22 History quetiapine 50 mg tablet 50 mg PO HS 11/02/22 11/02/22 History tolterodine 2 mg capsule,extended 2 mg PO DAILY 11/02/22 11/02/22 History release 24 hr torsemide 20 mg tablet 20 mg PO BID 11/02/22 11/02/22 History Patient History Medical History Abdominal abscess Abdominal fluid collection Asthma Chronic respiratory failure with hypoxia and hypercapnia CKD (chronic kidney disease) stage 3, GFR 30-59 ml/min COPD (chronic obstructive pulmonary disease) COPD, group C, by GOLD 2013 classification Dependence on supplemental oxygen Depression Diabetes mellitus Diabetes mellitus, type II Diastolic congestive heart failure Excessive daytime sleepiness Excessive somnolence disorder Femur fracture Hip fracture History of DVT (deep vein thrombosis) Hypertension Hypertension Hypothyroidism Long COVID Osteoporosis Panic attacks 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 Rhinitis Shortness of breath Witnessed apneic spells Surgical History History of cholecystectomy History of partial thyroidectomy History of tonsillectomy and adenoidectomy History of total left hip arthroplasty Status post cholecystectomy Status post hysterectomy Family History Other No pertinent family history in first degree relatives Denies family history of Diabetes Cancer Social History Smoking Status: Never smoker Hx Alcohol Use: No Hx Substance Use: No Preferred Language: Marshallese Communication Ability: Effective Customer Service Leader Required: No Beliefs That Will Affect Care: None marital status: Current Living Situation: Family Current Living Situation Comment: Lives with sister Feels Safe at Home: Yes Safety Concerns: Feels Safe At This Time Assistive Devices: Cane, Glasses, Oxygen - Continuous and Walker Review of Systems Review of Systems: All systems reviewed & are unremarkable except as noted in HPI & below Physical Exam Constitutional: well developed, well nourished, + obese, comfortable and + lethargic; no acute distress Eyes: EOM intact bilaterally (but generally holds eyes tightly shut through most of interview) ENMT: Ears: no external ear abnormality Nose: no external nose abnormality Mouth: + dry oral mucous membranes Neck: no nuchal rigidity Respiratory: normal respiratory effort Auscultation: + diminished lung sounds Cardiovascular: RRR, no murmur, no edema Gastrointestinal (Abdomen): Inspection/Auscultation: normal bowel sounds Percussion/Palpation: abdomen soft; abdomen nontender Musculoskeletal: Extremities: strength 5/5 throughout Skin: scattered clusters of scabbed pustules on her L hip, R ankle, chest Neurologic: simeon, fluent speech, no tremor Psychiatric: Orientation: oriented to person, oriented to place and cooperative; + not oriented to time Genitourinary: herrera w/ ample light yellow urine Results & Data ([facility]) Vital Signs (Past 12 Hours) Vital Signs Temp Pulse Resp BP Pulse Ox O2 Del Method O2 Flow Rate 11/03/22 09:52 Nasal Cannula 2 11/03/22 07:27 36.8 C 92 H 18 104/55 L 94 Nasal Cannula 2 11/03/22 03:52 37.7 C H 96 H 20 115/67 95 Nasal Cannula 11/02/22 22:29 36.8 C 90 20 118/79 93 Nasal Cannula 2 Laboratory Results 11/03/22 06:22 11/03/22 06:22 UA reviewed Diagnostic Findings CT chest no con 1. No acute posttraumatic intrathoracic abnormality identified. 2. Subtle cortical angulation of the anterior right sixth rib suggestive of an age-indeterminate fracture. Correlate with point tenderness. 3. No acute displaced rib fracture or pneumothorax. 4. Mild bibasilar opacities suggestive of atelectasis versus scarring. other CXR, CT reviewed renal u/s pending
--- NOTE | 2022-11-03 10:05 | Ultrasound Report ---
RENAL ULTRASOUND HISTORY: Acute kidney injury judy COMPARISON: Chest CT 11/02/2022 FINDINGS: Right kidney: 9.4 No hydronephrosis. Normal corticomedullary differentiation. Mild diffuse cortical t hinning. Left kidney: 10.6 No hydronephrosis. Normal corticomedullary differentiation. Mild diffuse cortical t hinning. Bladder: Decompressed urinary bladder. IMPRESSION: No renal calculi or hydronephrosis. ACT 112: Negative or not required by law. Electronically signed by: Tate Lopez M.D. 11/03/2022 10:03 AM
--- NOTE | 2022-11-03 13:49 | Ultrasound Report ---
LEFT LOWER EXTREMITY VENOUS DOPPLER HISTORY: Left leg edema. r/o DVT COMPARISON STUDY: None. FINDINGS: There is normal compressibility, flow, and augmentation within the left lower extremity noel p venous system. Of note, the peroneal vessels were not well visualized. A 5.1 x 0.6 x 0.5 cm poplite al cyst. IMPRESSION: No DVT within the visualized left lower extremity. ACT 112: Negative or not required by law. Electronically signed by: Alexander Calderon M.D. 11/03/2022 1:48 PM
[2022-11-03] MEDS: QUEtiapine FUMARATE 25 MG TABLET PO SCH (20:13)
[2022-11-03] MEDS ORDERED: MICONAZOLE NITRATE POWDER 85 GM EXT PRN (23:30)
[2022-11-04] MEDS: HEPARIN SOD 5,000 UNIT/0.5 ML VIAL SQ SCH ×3 (05:59→21:27)
[2022-11-04] MEDS: LEVOTHYROXINE SODIUM 100 MCG TABLET PO SCH (05:59)
[2022-11-04 07:28] LABS: Basophils # (auto) 0.02 K/uL (0-0.2); Basophils % (auto) 0.3 %; Eosinophils % (auto) 3.5 %; Hematocrit (blood only) 27.1 % (37.0-47.0); Hemoglobin 8.4 g/dl (12.0-16.0); Immature Granulocytes # (auto) 0.02 K/uL (0.01-0.20); Immature Granulocytes % (auto) 0.3 %; Lymphocytes # (auto) 2.28 K/uL (1.2-3.4); Lymphocytes % (auto) 39.7 %; Mean Corpuscular Hemoglobin 26.5 pg (25.0-34.0); Mean Corpuscular Volume 85.5 fL (80.0-100.0); Mean Platelet Volume 10.2 fL (9.4-12.4); Monocytes # (auto) 0.45 K/uL (0.11-0.59); Monocytes % (auto) 7.8 %; Neutrophils # (auto) 2.77 K/uL (1.40-6.50); Neutrophils % (auto) 48.4 %; Platelet Count 175 K/uL (130-400); RDW Standard Deviation 43.9 fL (36.4-46.3); Red Blood Count 3.17 M/uL (4.20-5.40); White Blood Count 5.74 K/ul (4.8-10.8)
[2022-11-04 07:42] LABS: BUN Creatinine Ratio 22.4 (10-20); Calcium 8.6 mg/dl (8.5-10.1); Creatinine Clr Calc Pharmacy 24.8 ml/min; Est GFR (Non-African American) 19.9 ml/min; Magnesium 2.4 mg/dl (1.7-2.4); Phosphorus 3.7 mg/dl (2.5-4.9); Potassium 4.3 mmol/L (3.5-5.1)
--- NOTE | 2022-11-04 08:35 | Hospitalist Progress Note ---
Date of Service November 04, 2022 Assessment & Plan (1) Fall: (2) Left knee pain: (3) Sacral pain: (4) Acute worsening of stage 3 chronic kidney disease: (5) Diabetes mellitus, type II: (6) Chronic respiratory failure with hypoxia and hypercapnia: (7) COPD (chronic obstructive pulmonary disease): Plan 81 yo f female w/ chronic hypoxic respiratory failure on 2 L, COPD, HTN, HLD, IDDM type 2,hypothyroidism, A-fib, GERD, depression with anxiety and CKD stage III who presents ED secondary to fall prior to arrival. Managed also for LUCY. Fall Left knee pain Sacral pain Admit to telemetry Left knee x-ray without acute abnormality, positive arthritis Obtained sacral x-ray - no fx also reports tenderness behind the knee - will obtain doppler Ice 3 times daily, Tylenol as needed PT/OT Obtain orthostatics to rule out orthostasis as cause of fall Fall possibly in setting of acute dehydration She denies any new medication and typically ambulates with walker Acute on chronic CKD stage III Hold losartan and torsemide Gentle IV fluid given herrera cath placed renal US normal no evidence of rhabdo Nephrology consulted, appreciate their input Cr improved at 2.2 today Acute sinusitis per imaging pt denies sx, no leukocytosis or fever add flonase no indication for antibiotic at this time T2DM current a1c 9% lantus/novolog per protocol hyperglycemic in ED Chronic hypoxic resp failure with hypercarbia and hypoxia continue o2 supplementation continue inhalers HTN hx of afib continue metoprolol, diltiazem hold losartan/torsemide pt is not on anticoagulation (d/t to risk of fall), just asa DVT ppx: SQ Heparin Dispo: tele, once LUCY resolves and transition to medical, PT/OT consulted, pt may need rehab FULL CODE PCP: Magaly Kyle PA-C Admission and Anticipated Discharge Date Admission Date: November 02, 2022 Subjective Pt seen in follow up of fall and LUCY on CKD diuretics held on admission and pt received IVF US renal normal and nephrology consulted Cr improved today Currently laying in bed, in no acute distress She is on 2 L of oxygen, which is her baseline Denies fevers chills chest pain shortness of breath, denies abdominal pain Tells me she takes torsemide for lower extremity edema She is slow to answer questions. She is not sure who saw her today such as nephrology, PT.. She is inquiring about discharge. Review of Systems Review of Systems: All systems reviewed & are unremarkable except as noted in Subjective Physical Exam Physical Exam: Constitutional: Elderly obese , F, NAD on 2L suppl. O2, chronically ill/ tired appearing Head: Normocephalic, Atraumatic Eyes: PERRL,conjunctivae normal, anicteric sclerae ENMT: external ear and nose normal, oropharynx normal dry mucous membranes Neck: normal visual inspection Respiratory: normal respiratory effort, lungs clear to auscultation, no wheeze, rales, rhonchi. Normal insp/exp effort, no accessory muscle use Cardiovascular: RRR, no murmur, no edema Vessels: no JVD or carotid bruit Chest: normal inspection of chest Abdomen: normal bowel sounds, soft, nontender Musculoskeletal:moves extremities, no erythema noted, few excoriations on lower extremities noted, minimal tenderness on palpation posterior knee left lower extremity Skin: + area of excoriation from picking on lower extremity extending to prox thigh and forehead, no sign of infection,warm and dry Neuro/Psych:Awake alert oriented, answering simple questions appropriately (however not sure which doctors/ services she saw today), speech is fluent but slow, PERRL,no face palsy,moves all extremities : herrera cath draining yellow urine Results & Data Results & Data ([facility]) Vital Signs (Past 12 Hours) Vital Signs Temp Pulse Pulse Resp BP Pulse Ox O2 Del Method 11/04/22 03:00 37 C 83 20 149/61 H 92 Nasal Cannula 11/03/22 22:15 82 11/03/22 22:00 36.9 C 75 18 136/68 95 Nasal Cannula O2 Flow Rate 11/04/22 03:00 2 11/03/22 22:15 11/03/22 22:00 2 Laboratory Results 11/04/22 11/04/22 11/04/22 Range/Units 08:31 06:32 06:32 WBC 5.74 (4.8-10.8) K/ul RBC 3.17 L (4.20-5.40) M/uL Hgb 8.4 L (12.0-16.0) g/dl Hct 27.1 L (37.0-47.0) % MCV 85.5 (80.0-100.0) fL MCH 26.5 (25.0-34.0) pg MCHC 31.0 L (32.0-36.0) g/dL RDW Std Deviation 43.9 (36.4-46.3) fL RDW Coeff of [place] 14.0 (11.5-14.5) % Plt Count 175 (130-400) K/uL MPV 10.2 (9.4-12.4) fL Immature Gran % (Auto) 0.3 % Neut % (Auto) 48.4 % Lymph % (Auto) 39.7 % [place] % (Auto) 7.8 % Eos % (Auto) 3.5 % Baso % (Auto) 0.3 % Neut # (Auto) 2.77 (1.40-6.50) K/uL Lymph # (Auto) 2.28 (1.2-3.4) K/uL [place] # (Auto) 0.45 (0.11-0.59) K/uL Eos # (Auto) 0.20 (0-0.50) K/uL Baso # (Auto) 0.02 (0-0.2) K/uL Immature Gran # (Auto) 0.02 (0.01-0.20) K/uL Sodium 139 (136-145) mmol/L Potassium 4.3 (3.5-5.1) mmol/L Chloride 104 (98-107) mmol/L Carbon Dioxide 32 (21-32) mmol/L Anion Gap 3 (3-11) BUN 50 H (6-23) mg/dl Creatinine 2.23 H D (0.6-1.2) mg/dl Est Cr Clr Drug Dosing 24.8 ml/min Est GFR ( Amer) 23.0 ml/min Est GFR (Non-Af Amer) 19.9 ml/min BUN/Creatinine Ratio 22.4 H (10-20) Glucose 131 H (70-99(Fasting)) mg/dl POC Glucose 136 H (70-99) mg/dl Calcium 8.6 (8.5-10.1) mg/dl Phosphorus 3.7 (2.5-4.9) mg/dl Magnesium 2.4 (1.7-2.4) mg/dl 11/03/22 11/03/22 11/03/22 Range/Units 20:46 16:56 11:51 WBC (4.8-10.8) K/ul RBC (4.20-5.40) M/uL Hgb (12.0-16.0) g/dl Hct (37.0-47.0) % MCV (80.0-100.0) fL MCH (25.0-34.0) pg MCHC (32.0-36.0) g/dL RDW Std Deviation (36.4-46.3) fL RDW Coeff of [place] (11.5-14.5) % Plt Count (130-400) K/uL MPV (9.4-12.4) fL Immature Gran % (Auto) % Neut % (Auto) % Lymph % (Auto) % [place] % (Auto) % Eos % (Auto) % Baso % (Auto) % Neut # (Auto) (1.40-6.50) K/uL Lymph # (Auto) (1.2-3.4) K/uL [place] # (Auto) (0.11-0.59) K/uL Eos # (Auto) (0-0.50) K/uL Baso # (Auto) (0-0.2) K/uL Immature Gran # (Auto) (0.01-0.20) K/uL Sodium (136-145) mmol/L Potassium (3.5-5.1) mmol/L Chloride (98-107) mmol/L Carbon Dioxide (21-32) mmol/L Anion Gap (3-11) BUN (6-23) mg/dl Creatinine (0.6-1.2) mg/dl Est Cr Clr Drug Dosing ml/min Est GFR ( Amer) ml/min Est GFR (Non-Af Amer) ml/min BUN/Creatinine Ratio (10-20) Glucose (70-99(Fasting)) mg/dl POC Glucose 194 H 171 H 188 H (70-99) mg/dl Calcium (8.5-10.1) mg/dl Phosphorus (2.5-4.9) mg/dl Magnesium (1.7-2.4) mg/dl Medications Administered Current Inpatient Medications Acetaminophen (Acetaminophen 325 Mg Tab) 650 mg PO Q4H PRN PRN Reason: Pain or Fever Stop: 12/02/22 15:37 Last Admin: 11/02/22 20:43 Dose: 650 mg Albuterol (Albuterol Hfa 8 Gm Inhaler) 2 puffs INH Q4 PRN PRN Reason: Shortness Of Breath Stop: 12/02/22 15:37 Aspirin (Aspirin 81 Mg Ectab) 81 mg PO DAILY [facility] Stop: 12/03/22 08:59 Last Admin: 11/03/22 08:52 Dose: 81 mg Atorvastatin Calcium (Atorvastatin 40 Mg Tab) 40 mg PO DAILY [facility] Stop: 12/03/22 08:59 Last Admin: 11/03/22 08:52 Dose: 40 mg Dextrose (Dextrose 50% 50 Ml Syringe) 25 - 50 ml IV UD PRN; Protocol PRN Reason: Hypoglycemia Protocol Stop: 12/02/22 15:37 Diltiazem HCl (Diltiazem Hcl 60 Mg Tab) 60 mg PO Q12 [facility] Stop: 12/02/22 22:59 Last Admin: 11/03/22 20:14 Dose: 60 mg Escitalopram Oxalate (Escitalopram Oxalate 20 Mg Tab) 20 mg PO DAILY [facility] Stop: 12/03/22 08:59 Last Admin: 11/03/22 08:52 Dose: 20 mg Famotidine (Famotidine 20 Mg Tab) 20 mg PO DAILY [facility] Stop: 12/03/22 08:59 Last Admin: 11/03/22 08:52 Dose: 20 mg Fluticasone Propionate (Fluticasone Propionate Na Spr 16 Gm Btl) 2 sprays NA DAILY [facility] Stop: 12/02/22 15:37 Last Admin: 11/03/22 08:54 Dose: 2 sprays Fluticasone/Vilanterol (Fluticasone/Vilanterol 100/25mcg 14 Puffs/Inhaler) 1 puffs INH DAILY [facility] Stop: 12/03/22 08:59 Last Admin: 11/03/22 08:54 Dose: 1 puffs Gabapentin (Gabapentin 100 Mg Cap) 200 mg PO BID [facility] Stop: 12/02/22 20:59 Last Admin: 11/03/22 20:13 Dose: 200 mg Glucagon (Glucagon For Inj 1 Mg Vial) 1 mg SQ UD PRN; Protocol PRN Reason: Hypoglycemia Protocol Stop: 12/02/22 15:37 Glucose (Glucose 10 Tab/Tube) 4 - 8 tab PO UD PRN; Protocol PRN Reason: Hypoglycemia Treatment Stop: 12/02/22 15:37 Glucose (Glucose 40% Gel 15 Gm Tube) 15 - 30 gm PO UD PRN; Protocol PRN Reason: Hypoglycemia Protocol Stop: 12/02/22 15:37 Heparin Sodium (Porcine) (Heparin Sod 5,000 Unit/0.5 Ml Vial) 5,000 units SQ Q8 [facility] Stop: 12/02/22 21:59 Last Admin: 11/04/22 05:59 Dose: 5,000 units Insulin Aspart (Insulin Aspart Per Unit) 0 units SC ACHS [facility] Stop: 12/02/22 16:29 Last Admin: 11/03/22 21:44 Dose: 5 units Insulin Glargine (Lantus Per Unit Charge) 0 units SQ BID [facility] Stop: 12/02/22 20:59 Last Admin: 11/03/22 21:45 Dose: 15 units Levothyroxine Sodium (Levothyroxine Sodium 100 Mcg Tablet) 100 mcg PO DAILYBB [facility] Stop: 12/03/22 06:29 Last Admin: 11/04/22 05:59 Dose: 100 mcg Metoprolol Tartrate (Metoprolol Tartrate 25 Mg Tab) 12.5 mg PO DAILY [facility] Stop: 12/03/22 08:59 Last Admin: 11/03/22 08:52 Dose: 12.5 mg Miconazole Nitrate (Miconazole Nitrate Powder 43 Gm) 1 appln EXT PRN PRN PRN Reason: PRN Stop: 12/03/22 23:29 Miscellaneous (Carbohydrates For Hypoglycemia ) 15 - 30 gm PO UD PRN PRN Reason: Hypoglycemia Protocol Stop: 12/02/22 15:37 Multi-Ingredient Cream (Eucerin Cr 120 Gm Jar) 1 appln EXT BID [facility] Stop: 12/02/22 20:59 Last Admin: 11/03/22 20:14 Dose: 1 appln Ondansetron HCl (Ondansetron Inj 2 Mg/Ml 2 Ml Vial) 4 mg IV Q6H PRN PRN Reason: Nausea Stop: 12/02/22 15:37 Polyethylene Glycol (Polyethylene (Miralax) 17 Gm Pack) 17 gm PO DAILY PRN PRN Reason: Constipation Stop: 12/02/22 15:37 Quetiapine Fumarate (Quetiapine Fumarate 25 Mg Tablet) 50 mg PO HS [facility] Stop: 12/02/22 20:59 Last Admin: 11/03/22 20:13 Dose: 50 mg Tolterodine Tartrate (Tolterodine Tartrate La 2 Mg Capcr) 2 mg PO DAILY [facility] Stop: 12/03/22 08:59 Last Admin: 11/03/22 08:54 Dose: 2 mg Vitamin D (Cholecalciferol 400 Units 10 Mcg Tab) 400 units PO DAILY [facility] Stop: 12/03/22 08:59 Last Admin: 11/03/22 08:52 Dose: 400 units
--- NOTE | 2022-11-04 09:28 | Nephrology Progress Note ---
Date of Service November 04, 2022 Assessment & Plan (1) LUCY (acute kidney injury): Plan: improving stage 2 nonoliguric acute on chronic renal failure Prerenal LUCY present on arrival after being better than baseline 2-3 wks prior to admission. prerenal in the setting of ?more than needed dosed losartan/torsemide; ? if pt adherent to med regimen or may have had other meds than on list prior to admission given her challenges giving hx; I checked with pharmacy and she has been refilling losartan (filled 09/21 90 day supply and before that 05/28 90 day supply) and torsemide faithfully (every 30 days consistently). While tolterodine does not cause acute kidney injury per se, it can lead to urinary retention and certainly needs a dose adjustment with renal failure no evidence of sepsis or rhabdomyolysis, no IV contrast or IV abtx; she is relatively hypotensive > blood pressure improved -continue gentle hydration w/ NS -f/u renal u/s >> unremarkable -agree w/ cont to hold torsemide and losartan -lowered tolteradine dose to 1 mg daily, which is more appropriate for current degree of renal dysfunction >low threshold for TTE if hypotension persists <<>>covid affected her lungs so could in theory affect her heart as well -daily bmp -strict I/O -tolteradine dose halved (2) Acute worsening of stage 3 chronic kidney disease: Plan: as above Admission and Anticipated Discharge Date Admission Date: November 02, 2022 Subjective no actue interval events. pt denies dyspnea, edema, uncontrolled pain Review of Systems Review of Systems: All systems reviewed & are unremarkable except as noted in Subjective Physical Exam Constitutional: well developed, well nourished, + obese, cooperative and comfortable; no acute distress Eyes: EOM intact bilaterally ENMT: Ears: no external ear abnormality Nose: no external nose abnormality Mouth: + dry oral mucous membranes Neck: no nuchal rigidity Respiratory: normal respiratory effort Auscultation: + diminished lung sounds and + crackles (throughout posterior melton) Cardiovascular: RRR, no murmur, no edema Gastrointestinal (Abdomen): Inspection/Auscultation: normal bowel sounds Percussion/Palpation: abdomen soft; abdomen nontender Musculoskeletal: Extremities: strength 5/5 throughout Neurologic: simeon, fluent speech, no tremor Psychiatric: Orientation: oriented to person, oriented to place and cooperative; + not oriented to time Results & Data ([facility]) Vital Signs (Past 12 Hours) Vital Signs Temp Pulse Pulse Resp BP BP Pulse Ox 11/04/22 07:00 36.9 C 59 L 18 132/69 98 11/04/22 03:00 37 C 83 20 149/61 H 92 11/03/22 22:15 82 11/03/22 22:00 36.9 C 75 18 136/68 95 O2 Del Method O2 Flow Rate 11/04/22 07:00 Nasal Cannula 2 11/04/22 03:00 Nasal Cannula 2 11/03/22 22:15 11/03/22 22:00 Nasal Cannula 2 Laboratory Results 11/04/22 06:32 11/04/22 06:32
[2022-11-04] MEDS: LANTUS PER UNIT CHARGE SQ SCH ×2 (09:32→21:32)
[2022-11-04] MEDS: INSULIN ASPART PER UNIT SC SCH ×4 (09:33→21:31)
[2022-11-04] MEDS: TOLTERODINE TARTRATE LA 2 MG CAPCR PO SCH (10:08)
[2022-11-04] MEDS: FAMOTIDINE 20 MG TAB PO SCH (10:09)
[2022-11-04] MEDS: METOPROLOL TARTRATE 25 MG TAB PO SCH (10:09)
[2022-11-04] MEDS: GABAPENTIN 100 MG CAP PO SCH ×2 (10:09→21:26)
[2022-11-04] MEDS: ESCITALOPRAM OXALATE 20 MG TAB PO SCH (10:10)
[2022-11-04] MEDS: dilTIAZem HCl 60 MG TAB PO SCH ×2 (10:10→21:26)
[2022-11-04] MEDS: CHOLECALCIFEROL 400 UNITS 10 MCG TAB PO SCH (10:10)
[2022-11-04] MEDS: ATORVASTATIN 40 MG TAB PO SCH (10:11)
[2022-11-04] MEDS: ASPIRIN 81 MG ECTAB PO SCH (10:11)
[2022-11-04] MEDS: FLUTICASONE/VILANTEROL 100/25MCG 14 PUFFS/INHALER INH SCH (10:12)
[2022-11-04] MEDS: FLUTICASONE PROPIONATE NA SPR 16 GM BTL SCH (10:12)
[2022-11-04] MEDS: EUCERIN CR 120 GM JAR EXT SCH ×2 (10:13→21:24)
[2022-11-04] MEDS: TOLTERODINE TARTRATE 1 MG TAB PO SCH ×2 (11:36→21:25)
[2022-11-04] MEDS: QUEtiapine FUMARATE 25 MG TABLET PO SCH (21:26)
[2022-11-05] MEDS: MELATONIN 3 MG TAB PO PRN ×2 (03:02→21:52)
[2022-11-05] MEDS: LEVOTHYROXINE SODIUM 100 MCG TABLET PO SCH (05:26)
[2022-11-05] MEDS: HEPARIN SOD 5,000 UNIT/0.5 ML VIAL SQ SCH ×3 (05:26→21:52)
[2022-11-05 07:07] LABS: Hematocrit (blood only) 28.1 % (37.0-47.0); Hemoglobin 8.9 g/dl (12.0-16.0); Mean Corpuscular Hemoglobin 26.7 pg (25.0-34.0); Mean Corpuscular Hgb Conc 31.7 g/dL (32.0-36.0); Mean Corpuscular Volume 84.4 fL (80.0-100.0); Mean Platelet Volume 9.9 fL (9.4-12.4); Platelet Count 182 K/uL (130-400); RDW Coefficient of Variation 14.3 % (11.5-14.5); RDW Standard Deviation 43.6 fL (36.4-46.3); Red Blood Count 3.33 M/uL (4.20-5.40); White Blood Count 5.36 K/ul (4.8-10.8)
[2022-11-05 07:50] LABS: BUN Creatinine Ratio 30.1 (10-20); Calcium 9.1 mg/dl (8.5-10.1); Creatinine Clr Calc Pharmacy 35.7 ml/min; Est GFR (African American) 36.3 ml/min; Est GFR (Non-African American) 31.4 ml/min; Magnesium 2.4 mg/dl (1.7-2.4); Phosphorus 3.6 mg/dl (2.5-4.9); Potassium 4.3 mmol/L (3.5-5.1)
--- NOTE | 2022-11-05 08:12 | Hospitalist Progress Note ---
Date of Service November 05, 2022 Assessment & Plan (1) Fall: (2) Left knee pain: (3) Sacral pain: (4) Acute worsening of stage 3 chronic kidney disease: (5) Diabetes mellitus, type II: (6) Chronic respiratory failure with hypoxia and hypercapnia: (7) COPD (chronic obstructive pulmonary disease): Plan 81 yo f female w/ chronic hypoxic respiratory failure on 2 L, COPD, HTN, HLD, IDDM type 2,hypothyroidism, A-fib, GERD, depression with anxiety and CKD stage III who presents ED secondary to fall prior to arrival. Managed also for LUCY. Fall Left knee pain Sacral pain Admitted to telemetry Left knee x-ray without acute abnormality, positive arthritis Obtained sacral x-ray - no fx also reports tenderness behind the knee - obtained doppler- negat. for dvt Ice 3 times daily, Tylenol as needed PT/OT Obtain orthostatics to rule out orthostasis as cause of fall Fall possibly in setting of acute dehydration She denies any new medication and typically ambulates with walker PT/OT recommends rehab - pt prefers Acute on chronic CKD stage III Hold losartan and torsemide Gentle IV fluid given on admission herrera cath placed- will remove now renal US normal no evidence of rhabdo Nephrology consulted, appreciate their input Cr improved at 1.5 today plan to resume torsemide on DC 20 mg daily Acute sinusitis per imaging pt denies sx, no leukocytosis or fever add flonase no indication for antibiotic at this time T2DM current a1c 9% lantus/novolog per protocol while inpt hyperglycemic in ED Chronic hypoxic resp failure with hypercarbia and hypoxia continue o2 supplementation continue inhalers HTN hx of afib continue metoprolol, diltiazem hold losartan/torsemide pt is not on anticoagulation (d/t to risk of fall), just asa DVT ppx: SQ Heparin Dispo: tele, once LUCY resolves and transition to medical, PT/OT consulted, pt may need rehab, she prefers FULL CODE PCP: Magaly Kyle PA-C Admission and Anticipated Discharge Date Admission Date: November 02, 2022 Subjective Pt seen in follow up of fall and LUCY on CKD diuretics held on admission and pt received IVF US renal normal and nephrology consulted Cr improved to 1.5 Currently laying in bed, in no acute distress She is on 2 L of oxygen, which is her baseline Denies fevers chills chest pain shortness of breath, denies abdominal pain Tells me she takes torsemide for lower extremity edema She is slow to answer questions. She is inquiring about discharge. Discussed w/ nephrology. Review of Systems Review of Systems: All systems reviewed & are unremarkable except as noted in Subjective Physical Exam Physical Exam: Constitutional: Elderly obese , F, NAD on 2L suppl. O2, chronically ill/ tired appearing Head: Normocephalic, Atraumatic Eyes: PERRL,conjunctivae normal, anicteric sclerae ENMT: external ear and nose normal, oropharynx normal dry mucous membranes Neck: normal visual inspection Respiratory: normal respiratory effort, lungs clear to auscultation, no wheeze, rales, rhonchi. Normal insp/exp effort, no accessory muscle use Cardiovascular: RRR, no murmur, no edema Vessels: no JVD or carotid bruit Chest: normal inspection of chest Abdomen: normal bowel sounds, soft, nontender Musculoskeletal:moves extremities, no erythema noted, few excoriations on lower extremities noted, minimal tenderness on palpation posterior knee left lower extremity Skin: + area of excoriation from picking on lower extremity extending to prox thigh and forehead, no sign of infection,warm and dry Neuro/Psych:Awake alert oriented, answering simple questions appropriately (however not sure which doctors/ services she saw today), speech is fluent but slow, PERRL,no face palsy,moves all extremities : herrera cath draining yellow urine Results & Data Results & Data ([facility]) Vital Signs (Past 12 Hours) Vital Signs Temp Pulse Pulse Resp BP Pulse Ox O2 Del Method 11/05/22 07:39 76 11/05/22 04:00 36.6 C 80 18 151/77 H 95 Nasal Cannula 11/05/22 01:08 86 11/05/22 00:00 36.7 C 88 18 143/80 H 96 Nasal Cannula 11/04/22 21:57 Nasal Cannula O2 Flow Rate 11/05/22 07:39 11/05/22 04:00 2 11/05/22 01:08 11/05/22 00:00 2 11/04/22 21:57 2 Laboratory Results 11/05/22 11/05/22 11/05/22 Range/Units 07:56 06:41 06:41 WBC 5.36 (4.8-10.8) K/ul RBC 3.33 L (4.20-5.40) M/uL Hgb 8.9 L (12.0-16.0) g/dl Hct 28.1 L (37.0-47.0) % MCV 84.4 (80.0-100.0) fL MCH 26.7 (25.0-34.0) pg MCHC 31.7 L (32.0-36.0) g/dL RDW Std Deviation 43.6 (36.4-46.3) fL RDW Coeff of [place] 14.3 (11.5-14.5) % Plt Count 182 (130-400) K/uL MPV 9.9 (9.4-12.4) fL Sodium 141 (136-145) mmol/L Potassium 4.3 (3.5-5.1) mmol/L Chloride 106 (98-107) mmol/L Carbon Dioxide 31 (21-32) mmol/L Anion Gap 4 (3-11) BUN 46 H (6-23) mg/dl Creatinine 1.53 H D (0.6-1.2) mg/dl Est Cr Clr Drug Dosing 35.7 ml/min Est GFR ( Amer) 36.3 ml/min Est GFR (Non-Af Amer) 31.4 ml/min BUN/Creatinine Ratio 30.1 H (10-20) Glucose 131 H (70-99(Fasting)) mg/dl POC Glucose 148 H (70-99) mg/dl Calcium 9.1 (8.5-10.1) mg/dl Phosphorus 3.6 (2.5-4.9) mg/dl Magnesium 2.4 (1.7-2.4) mg/dl 11/04/22 11/04/22 11/04/22 Range/Units 20:20 16:49 12:01 WBC (4.8-10.8) K/ul RBC (4.20-5.40) M/uL Hgb (12.0-16.0) g/dl Hct (37.0-47.0) % MCV (80.0-100.0) fL MCH (25.0-34.0) pg MCHC (32.0-36.0) g/dL RDW Std Deviation (36.4-46.3) fL RDW Coeff of [place] (11.5-14.5) % Plt Count (130-400) K/uL MPV (9.4-12.4) fL Sodium (136-145) mmol/L Potassium (3.5-5.1) mmol/L Chloride (98-107) mmol/L Carbon Dioxide (21-32) mmol/L Anion Gap (3-11) BUN (6-23) mg/dl Creatinine (0.6-1.2) mg/dl Est Cr Clr Drug Dosing ml/min Est GFR ( Amer) ml/min Est GFR (Non-Af Amer) ml/min BUN/Creatinine Ratio (10-20) Glucose (70-99(Fasting)) mg/dl POC Glucose 179 H 184 H 211 H (70-99) mg/dl Calcium (8.5-10.1) mg/dl Phosphorus (2.5-4.9) mg/dl Magnesium (1.7-2.4) mg/dl 11/04/22 Range/Units 08:31 WBC (4.8-10.8) K/ul RBC (4.20-5.40) M/uL Hgb (12.0-16.0) g/dl Hct (37.0-47.0) % MCV (80.0-100.0) fL MCH (25.0-34.0) pg MCHC (32.0-36.0) g/dL RDW Std Deviation (36.4-46.3) fL RDW Coeff of [place] (11.5-14.5) % Plt Count (130-400) K/uL MPV (9.4-12.4) fL Sodium (136-145) mmol/L Potassium (3.5-5.1) mmol/L Chloride (98-107) mmol/L Carbon Dioxide (21-32) mmol/L Anion Gap (3-11) BUN (6-23) mg/dl Creatinine (0.6-1.2) mg/dl Est Cr Clr Drug Dosing ml/min Est GFR ( Amer) ml/min Est GFR (Non-Af Amer) ml/min BUN/Creatinine Ratio (10-20) Glucose (70-99(Fasting)) mg/dl POC Glucose 136 H (70-99) mg/dl Calcium (8.5-10.1) mg/dl Phosphorus (2.5-4.9) mg/dl Magnesium (1.7-2.4) mg/dl Medications Administered Current Inpatient Medications Acetaminophen (Acetaminophen 325 Mg Tab) 650 mg PO Q4H PRN PRN Reason: Pain or Fever Stop: 12/02/22 15:37 Last Admin: 11/02/22 20:43 Dose: 650 mg Albuterol (Albuterol Hfa 8 Gm Inhaler) 2 puffs INH Q4 PRN PRN Reason: Shortness Of Breath Stop: 12/02/22 15:37 Aspirin (Aspirin 81 Mg Ectab) 81 mg PO DAILY [facility] Stop: 12/03/22 08:59 Last Admin: 11/04/22 10:11 Dose: 81 mg Atorvastatin Calcium (Atorvastatin 40 Mg Tab) 40 mg PO DAILY [facility] Stop: 12/03/22 08:59 Last Admin: 11/04/22 10:11 Dose: 40 mg Dextrose (Dextrose 50% 50 Ml Syringe) 25 - 50 ml IV UD PRN; Protocol PRN Reason: Hypoglycemia Protocol Stop: 12/02/22 15:37 Diltiazem HCl (Diltiazem Hcl 60 Mg Tab) 60 mg PO Q12 [facility] Stop: 12/02/22 22:59 Last Admin: 11/04/22 21:26 Dose: 60 mg Escitalopram Oxalate (Escitalopram Oxalate 20 Mg Tab) 20 mg PO DAILY [facility] Stop: 12/03/22 08:59 Last Admin: 11/04/22 10:10 Dose: 20 mg Famotidine (Famotidine 20 Mg Tab) 20 mg PO DAILY [facility] Stop: 12/03/22 08:59 Last Admin: 11/04/22 10:09 Dose: 20 mg Fluticasone Propionate (Fluticasone Propionate Na Spr 16 Gm Btl) 2 sprays NA DAILY [facility] Stop: 12/02/22 15:37 Last Admin: 11/04/22 10:12 Dose: 2 sprays Fluticasone/Vilanterol (Fluticasone/Vilanterol 100/25mcg 14 Puffs/Inhaler) 1 puffs INH DAILY [facility] Stop: 12/03/22 08:59 Last Admin: 11/04/22 10:12 Dose: 1 puffs Gabapentin (Gabapentin 100 Mg Cap) 200 mg PO BID [facility] Stop: 12/02/22 20:59 Last Admin: 11/04/22 21:26 Dose: 200 mg Glucagon (Glucagon For Inj 1 Mg Vial) 1 mg SQ UD PRN; Protocol PRN Reason: Hypoglycemia Protocol Stop: 12/02/22 15:37 Glucose (Glucose 10 Tab/Tube) 4 - 8 tab PO UD PRN; Protocol PRN Reason: Hypoglycemia Treatment Stop: 12/02/22 15:37 Glucose (Glucose 40% Gel 15 Gm Tube) 15 - 30 gm PO UD PRN; Protocol PRN Reason: Hypoglycemia Protocol Stop: 12/02/22 15:37 Heparin Sodium (Porcine) (Heparin Sod 5,000 Unit/0.5 Ml Vial) 5,000 units SQ Q8 [facility] Stop: 12/02/22 21:59 Last Admin: 11/05/22 05:26 Dose: 5,000 units Insulin Aspart (Insulin Aspart Per Unit) 0 units SC ACHS [facility] Stop: 12/02/22 16:29 Last Admin: 11/04/22 21:31 Dose: 2 units Insulin Glargine (Lantus Per Unit Charge) 0 units SQ BID [facility] Stop: 12/02/22 20:59 Last Admin: 11/04/22 21:32 Dose: 8 units Levothyroxine Sodium (Levothyroxine Sodium 100 Mcg Tablet) 100 mcg PO DAILYBB [facility] Stop: 12/03/22 06:29 Last Admin: 11/05/22 05:26 Dose: 100 mcg Melatonin (Melatonin 3 Mg Tab) 3 mg PO HS PRN PRN Reason: Sleep Stop: 12/05/22 02:26 Last Admin: 11/05/22 03:02 Dose: 3 mg Metoprolol Tartrate (Metoprolol Tartrate 25 Mg Tab) 12.5 mg PO DAILY [facility] Stop: 12/03/22 08:59 Last Admin: 11/04/22 10:09 Dose: Not Given Miconazole Nitrate (Miconazole Nitrate Powder 43 Gm) 1 appln EXT PRN PRN PRN Reason: PRN Stop: 12/03/22 23:29 Miscellaneous (Carbohydrates For Hypoglycemia ) 15 - 30 gm PO UD PRN PRN Reason: Hypoglycemia Protocol Stop: 12/02/22 15:37 Multi-Ingredient Cream (Eucerin Cr 120 Gm Jar) 1 appln EXT BID [facility] Stop: 12/02/22 20:59 Last Admin: 11/04/22 21:24 Dose: 1 appln Ondansetron HCl (Ondansetron Inj 2 Mg/Ml 2 Ml Vial) 4 mg IV Q6H PRN PRN Reason: Nausea Stop: 12/02/22 15:37 Polyethylene Glycol (Polyethylene (Miralax) 17 Gm Pack) 17 gm PO DAILY PRN PRN Reason: Constipation Stop: 12/02/22 15:37 Last Admin: 11/04/22 21:25 Dose: 17 gm Quetiapine Fumarate (Quetiapine Fumarate 25 Mg Tablet) 50 mg PO HS [facility] Stop: 12/02/22 20:59 Last Admin: 11/04/22 21:26 Dose: 50 mg Tolterodine Tartrate (Tolterodine Tartrate 1 Mg Tab) 0.5 mg PO BID [facility] Stop: 12/04/22 09:59 Last Admin: 11/04/22 21:25 Dose: 0.5 mg Vitamin D (Cholecalciferol 400 Units 10 Mcg Tab) 400 units PO DAILY [facility] Stop: 12/03/22 08:59 Last Admin: 11/04/22 10:10 Dose: 400 units
[2022-11-05] MEDS: LANTUS PER UNIT CHARGE SQ SCH ×2 (08:46→21:53)
[2022-11-05] MEDS: INSULIN ASPART PER UNIT SC SCH ×4 (08:46→21:53)
[2022-11-05] MEDS: METOPROLOL TARTRATE 25 MG TAB PO SCH (08:53)
[2022-11-05] MEDS: CHOLECALCIFEROL 400 UNITS 10 MCG TAB PO SCH (08:53)
[2022-11-05] MEDS: ASPIRIN 81 MG ECTAB PO SCH (08:53)
[2022-11-05] MEDS: ESCITALOPRAM OXALATE 20 MG TAB PO SCH (08:53)
[2022-11-05] MEDS: ATORVASTATIN 40 MG TAB PO SCH (08:54)
[2022-11-05] MEDS: GABAPENTIN 100 MG CAP PO SCH ×2 (08:54→21:52)
[2022-11-05] MEDS: TOLTERODINE TARTRATE 1 MG TAB PO SCH ×2 (08:54→21:51)
[2022-11-05] MEDS: dilTIAZem HCl 60 MG TAB PO SCH ×2 (08:54→19:43)
[2022-11-05] MEDS: FAMOTIDINE 20 MG TAB PO SCH (08:54)
[2022-11-05] MEDS: EUCERIN CR 120 GM JAR EXT SCH ×2 (08:55→21:52)
[2022-11-05] MEDS: FLUTICASONE/VILANTEROL 100/25MCG 14 PUFFS/INHALER INH SCH (08:55)
[2022-11-05] MEDS: FLUTICASONE PROPIONATE NA SPR 16 GM BTL SCH (08:55)
--- NOTE | 2022-11-05 11:38 | Nephrology Progress Note ---
Date of Service November 05, 2022 Assessment & Plan (1) LUCY (acute kidney injury): Plan: improving stage 2 nonoliguric acute on chronic renal failure Prerenal LUCY present on arrival after being better than baseline 2-3 wks prior to admission. prerenal in the setting of ?more than needed dosed losartan/torsemide; from renal standpoint patient can be discharged on torsemide 20 mg daily. Losartan should be held until outpatient follow-up. -Okay to resume torsemide 20 mg daily and patient can be discharged on this dose -lowered tolterodine dose to 1 mg daily, which is more appropriate for current degree of renal dysfunction >low threshold for TTE if hypotension persists <<>>covid affected her lungs so could in theory affect her heart as well -daily bmp -Remove [place]o catheter and monitor if patient is able to empty her bladder on her own. (2) Acute worsening of stage 3 chronic kidney disease: Plan: as above Admission and Anticipated Discharge Date Admission Date: November 02, 2022 Subjective Seen for acute kidney injury. She feels better today. No shortness of breath. Legs are swollen. Review of Systems Review of Systems: All other systems were reviewed and negative except as noted in HPI Physical Exam Physical Exam: General exam: Appears comfortable, no acute distress HEENT: Pupils are equal and reactive to light Neck: No JVD, neck is supple trachea is midline Respiratory system: Clear breath sounds bilaterally. Gastrointestinal: Abdomen is soft, non distended, non tender, bowel sounds are present CVS: Regular rate and rhythm. No murmurs, rubs or gallops Musculoskeletal: No joint or muscle tenderness Extremities: Non tender, 1+ edema, peripheral pulses are present Neuro: Oriented, no tremors, no focal neurological deficits Skin: No rashes Results & Data ([facility]) Vital Signs (Past 12 Hours) Vital Signs Temp Pulse Pulse Resp BP Pulse Ox O2 Del Method 11/05/22 08:12 36.9 C 85 20 142/72 H 95 Nasal Cannula 11/05/22 07:39 76 11/05/22 04:00 36.6 C 80 18 151/77 H 95 Nasal Cannula 11/05/22 01:08 86 11/05/22 00:00 36.7 C 88 18 143/80 H 96 Nasal Cannula O2 Flow Rate 11/05/22 08:12 2 11/05/22 07:39 11/05/22 04:00 2 11/05/22 01:08 11/05/22 00:00 2 Laboratory Results 11/05/22 06:41 11/05/22 11/05/22 06:41 06:41 WBC 5.36 RBC 3.33 L MCV 84.4 MCH 26.7 MCHC 31.7 L RDW Std Deviation 43.6 RDW Coeff of [place] 14.3 Plt Count 182 MPV 9.9 Phosphorus 3.6
[2022-11-05] MEDS: QUEtiapine FUMARATE 25 MG TABLET PO SCH (21:52)
[2022-11-06] MEDS: LEVOTHYROXINE SODIUM 100 MCG TABLET PO SCH (06:22)
[2022-11-06] MEDS: HEPARIN SOD 5,000 UNIT/0.5 ML VIAL SQ SCH ×3 (06:22→22:57)
--- NOTE | 2022-11-06 07:21 | Hospitalist Progress Note ---
Date of Service November 06, 2022 Assessment & Plan (1) Fall: (2) Left knee pain: (3) Sacral pain: (4) Acute worsening of stage 3 chronic kidney disease: (5) Diabetes mellitus, type II: (6) Chronic respiratory failure with hypoxia and hypercapnia: (7) COPD (chronic obstructive pulmonary disease): Plan 81 yo f female w/ chronic hypoxic respiratory failure on 2 L, COPD, HTN, HLD, IDDM type 2,hypothyroidism, A-fib, GERD, depression with anxiety and CKD stage III who presents ED secondary to fall prior to arrival. Managed also for LUCY. Fall Left knee pain Sacral pain Admitted to telemetry Left knee x-ray without acute abnormality, positive arthritis Obtained sacral x-ray - no fx also reports tenderness behind the knee - obtained doppler- negat. for dvt Ice 3 times daily, Tylenol as needed PT/OT Obtain orthostatics to rule out orthostasis as cause of fall Fall possibly in setting of acute dehydration She denies any new medication and typically ambulates with walker PT/OT recommends rehab - pt prefers Acute on chronic CKD stage III Hold losartan and torsemide Gentle IV fluid given on admission herrera cath placed- will remove now renal US normal no evidence of rhabdo Nephrology consulted, appreciate their input Cr improved at 1.36 today plan to resume torsemide on DC 20 mg daily, and hold losartan until her outpt follow up Echo also obtained during this hosp. stay Mild concentric LVH. LV wall motion is normal. LV systolic function is normal. LVEF 60 to 65%. RV is normal in size and function. Grade 1 diastolic dysfunction. Aortic valve sclerosis mild, without significant aortic valvular stenosis is present. Compared to the report of the prior study dated July 2019, there has been no significant interval change. Acute sinusitis per imaging pt denies sx, no leukocytosis or fever add flonase no indication for antibiotic at this time T2DM current a1c 9% lantus/novolog per protocol while inpt hyperglycemic in ED Chronic hypoxic resp failure with hypercarbia and hypoxia continue o2 supplementation continue inhalers HTN hx of afib continue metoprolol, diltiazem hold losartan/torsemide pt is not on anticoagulation (d/t to risk of fall), just asa DVT ppx: SQ Heparin Dispo: tele, once LUCY resolves and transition to medical, PT/OT consulted, pt may need rehab, she prefers [facility] PCP: Magaly Kyle PA-C Admission and Anticipated Discharge Date Admission Date: November 02, 2022 Subjective Pt seen in follow up of fall and LUCY on CKD diuretics held on admission and pt received IVF US renal normal and nephrology consulted Cr improved to 1.36 Currently laying in bed, in no acute distress She is on 2 L of oxygen, which is her baseline Denies fevers chills chest pain shortness of breath, denies abdominal pain Tells me she takes torsemide for lower extremity edema She is inquiring about discharge. Discussed w/ nephrology. D/w daughter yesterday over the phone - she will be visiting pt today and will d/ if ok to come home w/ HH or if rehab more appropriate. Review of Systems Review of Systems: All systems reviewed & are unremarkable except as noted in Subjective Physical Exam Physical Exam: Constitutional: Elderly obese , F, NAD on 2L suppl. O2, chronically ill/ tired appearing Head: Normocephalic, Atraumatic Eyes: PERRL,conjunctivae normal, anicteric sclerae ENMT: external ear and nose normal, oropharynx normal dry mucous membranes Neck: normal visual inspection Respiratory: normal respiratory effort, lungs clear to auscultation, no wheeze, rales, rhonchi. Normal insp/exp effort, no accessory muscle use Cardiovascular: RRR, no murmur, no edema Vessels: no JVD or carotid bruit Chest: normal inspection of chest Abdomen: normal bowel sounds, soft, nontender Musculoskeletal:moves extremities, no erythema noted, few excoriations on lower extremities noted, minimal tenderness on palpation posterior knee left lower extremity Skin: + area of excoriation from picking on lower extremity extending to prox thigh and forehead, no sign of infection,warm and dry Neuro/Psych:Awake alert oriented, answering simple questions appropriately (however not sure which doctors/ services she saw today), speech is fluent but slow, PERRL,no face palsy,moves all extremities : herrera cath draining yellow urine Results & Data Results & Data ([facility]) Vital Signs (Past 12 Hours) Vital Signs Temp Pulse Pulse Resp BP Pulse Ox O2 Del Method 11/06/22 03:40 36.7 C 83 18 155/87 H 97 Nasal Cannula 11/06/22 00:20 79 11/05/22 23:59 36.3 C L 83 18 144/72 H 95 Nasal Cannula 11/05/22 23:31 Nasal Cannula O2 Flow Rate 11/06/22 03:40 2 11/06/22 00:20 11/05/22 23:59 2 11/05/22 23:31 2 Laboratory Results 11/06/22 11/06/22 11/05/22 Range/Units 08:29 05:20 20:52 Sodium 141 (136-145) mmol/L Potassium 4.9 (3.5-5.1) mmol/L Chloride 106 (98-107) mmol/L Carbon Dioxide 33 H (21-32) mmol/L Anion Gap 2 L (3-11) BUN 40 H (6-23) mg/dl Creatinine 1.36 H (0.6-1.2) mg/dl Est Cr Clr Drug Dosing 40.2 ml/min Est GFR ( Amer) 41.9 ml/min Est GFR (Non-Af Amer) 36.1 ml/min BUN/Creatinine Ratio 29.4 H (10-20) Glucose 135 H (70-99(Fasting)) mg/dl POC Glucose 197 H 214 H (70-99) mg/dl Calcium 9.3 (8.5-10.1) mg/dl Phosphorus 3.9 (2.5-4.9) mg/dl Magnesium 2.2 (1.7-2.4) mg/dl Stool Occult Bld Scrn (Negative) 11/05/22 11/05/22 11/05/22 Range/Units 20:27 16:44 11:54 Sodium (136-145) mmol/L Potassium (3.5-5.1) mmol/L Chloride (98-107) mmol/L Carbon Dioxide (21-32) mmol/L Anion Gap (3-11) BUN (6-23) mg/dl Creatinine (0.6-1.2) mg/dl Est Cr Clr Drug Dosing ml/min Est GFR ( Amer) ml/min Est GFR (Non-Af Amer) ml/min BUN/Creatinine Ratio (10-20) Glucose (70-99(Fasting)) mg/dl POC Glucose 182 H 204 H (70-99) mg/dl Calcium (8.5-10.1) mg/dl Phosphorus (2.5-4.9) mg/dl Magnesium (1.7-2.4) mg/dl Stool Occult Bld Scrn Negative (Negative) Medications Administered Current Inpatient Medications Acetaminophen (Acetaminophen 325 Mg Tab) 650 mg PO Q4H PRN PRN Reason: Pain or Fever Stop: 12/02/22 15:37 Last Admin: 11/02/22 20:43 Dose: 650 mg Albuterol (Albuterol Hfa 8 Gm Inhaler) 2 puffs INH Q4 PRN PRN Reason: Shortness Of Breath Stop: 12/02/22 15:37 Aspirin (Aspirin 81 Mg Ectab) 81 mg PO DAILY SUJEY Stop: 12/03/22 08:59 Last Admin: 11/06/22 09:16 Dose: 81 mg Atorvastatin Calcium (Atorvastatin 40 Mg Tab) 40 mg PO DAILY SUJEY Stop: 12/03/22 08:59 Last Admin: 11/06/22 09:16 Dose: 40 mg Dextrose (Dextrose 50% 50 Ml Syringe) 25 - 50 ml IV UD PRN; Protocol PRN Reason: Hypoglycemia Protocol Stop: 12/02/22 15:37 Diltiazem HCl (Diltiazem Hcl 60 Mg Tab) 60 mg PO Q12 SUJEY Stop: 12/02/22 22:59 Last Admin: 11/06/22 09:17 Dose: 60 mg Escitalopram Oxalate (Escitalopram Oxalate 20 Mg Tab) 20 mg PO DAILY SUJEY Stop: 12/03/22 08:59 Last Admin: 11/06/22 09:17 Dose: 20 mg Famotidine (Famotidine 20 Mg Tab) 20 mg PO DAILY SUJEY Stop: 12/03/22 08:59 Last Admin: 11/06/22 10:35 Dose: 20 mg Fluticasone Propionate (Fluticasone Propionate Na Spr 16 Gm Btl) 2 sprays NA DAILY SUJEY Stop: 12/02/22 15:37 Last Admin: 11/06/22 10:36 Dose: 2 sprays Fluticasone/Vilanterol (Fluticasone/Vilanterol 100/25mcg 14 Puffs/Inhaler) 1 puffs INH DAILY SUJEY Stop: 12/03/22 08:59 Last Admin: 11/06/22 10:36 Dose: 1 puffs Gabapentin (Gabapentin 100 Mg Cap) 200 mg PO BID SUJEY Stop: 12/02/22 20:59 Last Admin: 11/06/22 09:18 Dose: 200 mg Glucagon (Glucagon For Inj 1 Mg Vial) 1 mg SQ UD PRN; Protocol PRN Reason: Hypoglycemia Protocol Stop: 12/02/22 15:37 Glucose (Glucose 10 Tab/Tube) 4 - 8 tab PO UD PRN; Protocol PRN Reason: Hypoglycemia Treatment Stop: 12/02/22 15:37 Glucose (Glucose 40% Gel 15 Gm Tube) 15 - 30 gm PO UD PRN; Protocol PRN Reason: Hypoglycemia Protocol Stop: 12/02/22 15:37 Heparin Sodium (Porcine) (Heparin Sod 5,000 Unit/0.5 Ml Vial) 5,000 units SQ Q8 SUJEY Stop: 12/02/22 21:59 Last Admin: 11/06/22 06:22 Dose: 5,000 units Insulin Aspart (Insulin Aspart Per Unit) 0 units SC ACHS SUJEY Stop: 12/02/22 16:29 Last Admin: 11/06/22 09:53 Dose: 5 units Insulin Glargine (Lantus Per Unit Charge) 0 units SQ BID SUJEY Stop: 12/02/22 20:59 Last Admin: 11/06/22 09:55 Dose: 15 units Levothyroxine Sodium (Levothyroxine Sodium 100 Mcg Tablet) 100 mcg PO DAILYBB SUJEY Stop: 12/03/22 06:29 Last Admin: 11/06/22 06:22 Dose: 100 mcg Melatonin (Melatonin 3 Mg Tab) 3 mg PO HS PRN PRN Reason: Sleep Stop: 12/05/22 02:26 Last Admin: 11/05/22 21:52 Dose: 3 mg Metoprolol Tartrate (Metoprolol Tartrate 25 Mg Tab) 12.5 mg PO DAILY SUJEY Stop: 12/03/22 08:59 Last Admin: 11/06/22 10:36 Dose: 12.5 mg Miconazole Nitrate (Miconazole Nitrate Powder 43 Gm) 1 appln EXT PRN PRN PRN Reason: PRN Stop: 12/03/22 23:29 Miscellaneous (Carbohydrates For Hypoglycemia ) 15 - 30 gm PO UD PRN PRN Reason: Hypoglycemia Protocol Stop: 12/02/22 15:37 Multi-Ingredient Cream (Eucerin Cr 120 Gm Jar) 1 appln EXT BID SUJEY Stop: 12/02/22 20:59 Last Admin: 11/05/22 21:52 Dose: 1 appln Ondansetron HCl (Ondansetron Inj 2 Mg/Ml 2 Ml Vial) 4 mg IV Q6H PRN PRN Reason: Nausea Stop: 12/02/22 15:37 Polyethylene Glycol (Polyethylene (Miralax) 17 Gm Pack) 17 gm PO DAILY PRN PRN Reason: Constipation Stop: 12/02/22 15:37 Last Admin: 11/04/22 21:25 Dose: 17 gm Quetiapine Fumarate (Quetiapine Fumarate 25 Mg Tablet) 50 mg PO HS [facility] Stop: 12/02/22 20:59 Last Admin: 11/05/22 21:52 Dose: 50 mg Tolterodine Tartrate (Tolterodine Tartrate 1 Mg Tab) 0.5 mg PO BID SUJEY Stop: 12/04/22 09:59 Last Admin: 11/06/22 10:37 Dose: 0.5 mg Torsemide (Torsemide 10 Mg Tab) 20 mg PO QAM SUJEY Stop: 12/06/22 08:59 Last Admin: 11/06/22 10:37 Dose: 20 mg Vitamin D (Cholecalciferol 400 Units 10 Mcg Tab) 400 units PO DAILY SUJEY Stop: 12/03/22 08:59 Last Admin: 11/06/22 09:17 Dose: 400 units
[2022-11-06] MEDS: ASPIRIN 81 MG ECTAB PO SCH (09:16)
[2022-11-06] MEDS: ATORVASTATIN 40 MG TAB PO SCH (09:16)
[2022-11-06] MEDS: CHOLECALCIFEROL 400 UNITS 10 MCG TAB PO SCH (09:17)
[2022-11-06] MEDS: dilTIAZem HCl 60 MG TAB PO SCH ×2 (09:17→22:55)
[2022-11-06] MEDS: ESCITALOPRAM OXALATE 20 MG TAB PO SCH (09:17)
[2022-11-06] MEDS: GABAPENTIN 100 MG CAP PO SCH ×2 (09:18→22:55)
[2022-11-06] MEDS: INSULIN ASPART PER UNIT SC SCH ×4 (09:53→23:00)
[2022-11-06] MEDS: LANTUS PER UNIT CHARGE SQ SCH ×2 (09:55→23:00)
[2022-11-06 09:58] LABS: BUN Creatinine Ratio 29.4 (10-20); Calcium 9.3 mg/dl (8.5-10.1); Creatinine Clr Calc Pharmacy 40.2 ml/min; Est GFR (African American) 41.9 ml/min; Est GFR (Non-African American) 36.1 ml/min; Magnesium 2.2 mg/dl (1.7-2.4); Phosphorus 3.9 mg/dl (2.5-4.9); Potassium 4.9 mmol/L (3.5-5.1)
[2022-11-06] MEDS: FAMOTIDINE 20 MG TAB PO SCH (10:35)
[2022-11-06] MEDS: FLUTICASONE PROPIONATE NA SPR 16 GM BTL SCH (10:36)
[2022-11-06] MEDS: METOPROLOL TARTRATE 25 MG TAB PO SCH (10:36)
[2022-11-06] MEDS: FLUTICASONE/VILANTEROL 100/25MCG 14 PUFFS/INHALER INH SCH (10:36)
[2022-11-06] MEDS: TORSEMIDE 10 MG TAB PO SCH (10:37)
[2022-11-06] MEDS: TOLTERODINE TARTRATE 1 MG TAB PO SCH ×2 (10:37→22:55)
--- NOTE | 2022-11-06 11:04 | Nephrology Progress Note ---
Date of Service November 06, 2022 Assessment & Plan (1) LUCY (acute kidney injury): Plan: improving stage 2 nonoliguric acute on chronic renal failure Prerenal LUCY present on arrival after being better than baseline 2-3 wks prior to admission. prerenal in the setting of ?more than needed dosed losartan/torsemide; from renal standpoint patient can be discharged on torsemide 20 mg daily. Losartan should be held until outpatient follow-up. -Continue torsemide 20 mg daily and patient can be discharged on this dose -lowered tolterodine dose to 1 mg daily, which is more appropriate for current degree of renal dysfunction -daily bmp (2) Acute worsening of stage 3 chronic kidney disease: Plan: as above Admission and Anticipated Discharge Date Admission Date: November 02, 2022 Subjective Seen for acute kidney injury. She feels better. No shortness of breath. Creatinine downtrending. Review of Systems Review of Systems: All other systems were reviewed and negative except as noted in HPI Physical Exam Physical Exam: General exam: Appears comfortable, no acute distress HEENT: Pupils are equal and reactive to light Neck: No JVD, neck is supple trachea is midline Respiratory system: Clear breath sounds bilaterally. Gastrointestinal: Abdomen is soft, non distended, non tender, bowel sounds are present CVS: Regular rate and rhythm. No murmurs, rubs or gallops Musculoskeletal: No joint or muscle tenderness Extremities: Non tender, 1+ edema, peripheral pulses are present Neuro: Oriented, no tremors, no focal neurological deficits Skin: No rashes Results & Data ([facility]) Vital Signs (Past 12 Hours) Vital Signs Temp Pulse Pulse Resp BP Pulse Ox O2 Del Method 11/06/22 08:25 36.5 C 88 18 163/78 H 96 Nasal Cannula 11/06/22 03:40 36.7 C 83 18 155/87 H 97 Nasal Cannula 11/06/22 00:20 79 11/05/22 23:59 36.3 C L 83 18 144/72 H 95 Nasal Cannula 11/05/22 23:31 Nasal Cannula O2 Flow Rate 11/06/22 08:25 2 11/06/22 03:40 2 11/06/22 00:20 11/05/22 23:59 2 11/05/22 23:31 2 Laboratory Results 11/06/22 05:20 11/06/22 05:20 Phosphorus 3.9
[2022-11-06] MEDS: EUCERIN CR 120 GM JAR EXT SCH ×2 (12:14→22:52)
[2022-11-06] MEDS: QUEtiapine FUMARATE 25 MG TABLET PO SCH (22:56)
[2022-11-06] MEDS: MELATONIN 3 MG TAB PO PRN (22:57)
[2022-11-07] MEDS: HEPARIN SOD 5,000 UNIT/0.5 ML VIAL SQ SCH ×2 (06:34→13:43)
[2022-11-07] MEDS: LEVOTHYROXINE SODIUM 100 MCG TABLET PO SCH (06:34)
[2022-11-07 07:25] LABS: BUN Creatinine Ratio 29.4 (10-20); Calcium 9.4 mg/dl (8.5-10.1); Creatinine Clr Calc Pharmacy 43.4 ml/min; Est GFR (African American) 45.9 ml/min; Est GFR (Non-African American) 39.6 ml/min; Phosphorus 4.5 mg/dl (2.5-4.9); Potassium 4.5 mmol/L (3.5-5.1)
[2022-11-07] MEDS: LANTUS PER UNIT CHARGE SQ SCH (09:07)
[2022-11-07] MEDS: INSULIN ASPART PER UNIT SC SCH ×2 (09:10→12:45)
[2022-11-07] MEDS: ATORVASTATIN 40 MG TAB PO SCH (09:44)
[2022-11-07] MEDS: ASPIRIN 81 MG ECTAB PO SCH (09:44)
[2022-11-07] MEDS: ESCITALOPRAM OXALATE 20 MG TAB PO SCH (09:45)
[2022-11-07] MEDS: CHOLECALCIFEROL 400 UNITS 10 MCG TAB PO SCH (09:45)
[2022-11-07] MEDS: dilTIAZem HCl 60 MG TAB PO SCH (09:45)
[2022-11-07] MEDS: GABAPENTIN 100 MG CAP PO SCH (09:46)
[2022-11-07] MEDS: FLUTICASONE/VILANTEROL 100/25MCG 14 PUFFS/INHALER INH SCH (09:46)
[2022-11-07] MEDS: FAMOTIDINE 20 MG TAB PO SCH (09:46)
[2022-11-07] MEDS: FLUTICASONE PROPIONATE NA SPR 16 GM BTL SCH (09:46)
[2022-11-07] MEDS: METOPROLOL TARTRATE 25 MG TAB PO SCH (09:47)
[2022-11-07] MEDS: TORSEMIDE 10 MG TAB PO SCH (09:47)
[2022-11-07] MEDS: TOLTERODINE TARTRATE 1 MG TAB PO SCH (09:47)
--- NOTE | 2022-11-07 10:27 | Discharge Summary ---
Date of Service November 07, 2022 Admission HPI Per Admitting Provider This is an 81-year-old female who has significant past medical history of chronic hypoxic respiratory failure on 2 L, COPD, HTN, HLD, IDDM type 2,hypothyroidism, A-fib, GERD, depression with anxiety and CKD stage III who presents ED secondary to fall prior to arrival. History is obtained from patient. History is slightly unreliable given patient's underlying cognition although she does answer orientation questions appropriately but is drowsy. Currently she complains of sacral pain and left knee pain. She states she fell twice once yesterday and once today prior to arrival. She recalls her falls. She denies any loss of consciousness or hitting her head. She states this morning she was getting up to go to the bathroom whenever she felt like her legs were going to give out. She tried to turn around to sit on her walker when she then slid onto the floor. She was unable to get up. She was on the floor for approximately 4 to 5 hours and EMS was summoned. She lives at home with her sister. She typically ambulates with a walker. She denies any recent illness, fever, chills, sweats, chest pain, shortness breath, cough, nausea, vomiting, abdominal pain, diarrhea. She does admit to being lightheaded and dizzy when moving positions quickly. This has been ongoing for a while. She denies any URI symptoms. She been taking her medications regularly but did not take any today. She denies any new medications or any significant NSAID use. She feels her appetite is sufficient. She does have open areas on her lower extremities from picking. She states her, "skin is dry." Admission Exam Per Admitting Provider Constitutional: Elderly, F, vitals as above, NAD, sitting up in bed, pleasant, answers questions approp but is drowsy Head: Normocephalic, Atraumatic Eyes: PERRL, conjunctivae normal, anicteric sclerae ENMT: external ear and nose normal, oropharynx normal dry mucous membranes Neck: trachea midline, no thyromegaly normal visual inspection Respiratory: normal respiratory effort, lungs clear to auscultation, no wheeze, rales, rhonchi. Normal insp/exp effort, no accessory muscle use Cardiovascular: RRR, no murmur, no edema Vessels: no JVD or carotid bruit Chest: normal inspection of chest Abdomen: normal bowel sounds, soft, nontender, no hepatosplenomegaly Musculoskeletal: no cyanosis or clubbing, extremities motor strength 5/5 Skin: + area of excoriation from picking on lower extremity extending to prox thigh and forehead, no sign of infection,warm and dry significant turgor Neurologic: PERRL, EOMI, accommodation nl, no face palsy, no dysarthria CN's II-XI intact bilaterally and moves all extremities Psychiatric: A+Ox3, euthymic affect Principal Diagnosis LUYC weakness Discharge Exam Constitutional: Elderly obese , F, NAD on 2L suppl. O2, chronically ill/ tired appearing Head: Normocephalic, Atraumatic Eyes: PERRL,conjunctivae normal, anicteric sclerae ENMT: external ear and nose normal, oropharynx normal dry mucous membranes Neck: normal visual inspection Respiratory: normal respiratory effort, lungs clear to auscultation, no wheeze, rales, rhonchi. Normal insp/exp effort, no accessory muscle use Cardiovascular: RRR, no murmur, no edema Vessels: no JVD or carotid bruit Chest: normal inspection of chest Abdomen: normal bowel sounds, soft, nontender Musculoskeletal:moves extremities, no erythema noted, few excoriations on lower extremities noted, minimal tenderness on palpation posterior knee left lower extremity Skin: + area of excoriation from picking on lower extremity extending to prox thigh and forehead, no sign of infection,warm and dry Neuro/Psych:Awake alert oriented, answering simple questions appropriately (however not sure which doctors/ services she saw today), speech is fluent but slow, PERRL,no face palsy,moves all extremities : herrera cath draining yellow urine Discharge Data Allergies Allergy/AdvReac Type Severity Reaction Status Date / Time Sulfa (Sulfonamide Allergy Intermediate HIVES Verified 11/02/22 11:59 Antibiotics) Consultations 11/02/22 13:56 ED Decision to Admit Stat 11/03/22 08:35 Consult Nephrology Routine Ordered Studies 11/02/22 10:38 CT cervical spine wo con Stat FINDINGS: No acute fractures or subluxations are identified. Degenerative changes are seen in the visualized spine. The alignment is normal. Bilateral carotid calcifications are seen IMPRESSION: Degenerative changes without evidence of acute fracture. CT head/brain wo con Stat Findings: Moderate fluid level within the right sphenoid sinus. The mastoid air cells are clear. The calvarium and skull base are intact. There is no mass, hematoma, midline shift, acute infarct. White matter hypodensity is nonspecific but suggestive of microvascular ischemic change. The ventricles and sulci demonstrate mild age-related involutional changes. Impression: 1. No acute infarct or intracranial hemorrhage. 2. Acute right sphenoid sinusitis 11/02/22 12:35 CT chest diagnostic wo con Stat FINDINGS: Mild cardiomegaly with mild coronary arterial calcifications. Atherosclerosis of aorta without aneurysm. Heterogeneity of the thyroid. No lymphadenopathy. Calcified subcarinal lymph node. No pneumothorax, pleural effusion or overt pulmonary edema. Mild subsegmental bibasilar atelectasis versus scarring. There are a few scattered low suspicion bilateral solid pulmonary nodules measuring up to 4 mm, some of which are calcified. No suspicious pulmonary nodules or masses identified. Mild bibasilar bronchiectasis with left basilar mucous plugging. Central airways are otherwise patent. Postoperative changes of the stomach. Cholecystectomy. Mild colonic fecal retention. The soft tissues are within normal limits. Degenerative changes of the shoulders and spine. Mild cortical angulation of the anterior right sixth rib. There are a few healed chronic posterior right-sided rib fractures. Bridging osteophytosis of the thoracic spine. There are a few mild likely chronic thoracic wedge deformities, most pronounced in the upper thoracic spine. IMPRESSION: 1. No acute posttraumatic intrathoracic abnormality identified. 2. Subtle cortical angulation of the anterior right sixth rib suggestive of an age-indeterminate fracture. Correlate with point tenderness. 3. No acute displaced rib fracture or pneumothorax. 4. Mild bibasilar opacities suggestive of atelectasis versus scarring. 11/03/22 08:33 US Renal Bladder [US renal/blad retro comp] Urgent FINDINGS: Right kidney: 9.4 No hydronephrosis. Normal corticomedullary differentiation. Mild diffuse cortical thinning. Left kidney: 10.6 No hydronephrosis. Normal corticomedullary differentiation. Mild diffuse cortical thinning. Bladder: Decompressed urinary bladder. IMPRESSION: No renal calculi or hydronephrosis. 11/03/22 11:04 US leg [US venous doppler LE LT] Routine FINDINGS: There is normal compressibility, flow, and augmentation within the left lower extremity deep venous system. Of note, the peroneal vessels were not well visualized. A 5.1 x 0.6 x 0.5 cm popliteal cyst. IMPRESSION: No DVT within the visualized left lower extremity. Hospital Course (1) Fall: (2) Left knee pain: (3) Sacral pain: (4) Acute worsening of stage 3 chronic kidney disease: (5) Diabetes mellitus, type II: (6) Chronic respiratory failure with hypoxia and hypercapnia: (7) COPD (chronic obstructive pulmonary disease): Plan 81 yo F w/ chronic hypoxic respiratory failure on 2 L, COPD, HTN, HLD, IDDM type 2,hypothyroidism, A-fib, GERD, depression with anxiety and CKD stage III who presents ED secondary to fall prior to arrival. Managed also for LUCY. Fall Left knee pain Sacral pain Admitted to telemetry Left knee x-ray without acute abnormality, positive arthritis Obtained sacral x-ray - no fx also reports tenderness behind the knee - obtained doppler- negat. for dvt Ice 3 times daily, Tylenol as needed PT/OT Obtain orthostatics to rule out orthostasis as cause of fall Fall possibly in setting of acute dehydration She denies any new medication and typically ambulates with walker PT/OT recommends rehab - pt prefers HH Acute on chronic CKD stage III Hold losartan and torsemide Gentle IV fluid given on admission herrera cath placed- will remove now renal US normal no evidence of rhabdo Nephrology consulted, appreciate their input Cr improved at 1.26 today plan to resume torsemide on DC 20 mg daily, and hold losartan until her outpt follow up In addition, given her renal function tolteridone should be decreased to 1 mg daily Echo also obtained during this hosp. stay Mild concentric LVH. LV wall motion is normal. LV systolic function is normal. LVEF 60 to 65%. RV is normal in size and function. Grade 1 diastolic dysfu nction. Aortic valve sclerosis mild, without significant aortic valvular stenosis is present. Compared to the report of the prior study dated July 2019, there has been no significant interval change. Acute sinusitis per imaging pt denies sx, no leukocytosis or fever add flonase no indication for antibiotic at this time T2DM current a1c 9% lantus/novolog per protocol while inpt hyperglycemic in ED Chronic hypoxic resp failure with hypercarbia and hypoxia continue o2 supplementation continue inhalers HTN hx of afib continue metoprolol, diltiazem hold losartan/torsemide pt is not on anticoagulation (d/t to risk of fall), just asa Total Time Total Time Spent Total Time Spent (In Minutes): 40 Discharge Plan Discharge Items Patient Disposition: Home - Home Health Services Reason For Visit: LUCY Discharge Diagnosis: LUCY weakness Activity: Per Instructions section Non-emergency contact: Primary Care Provider Call non-emergency contact if: you have any medication questions and your symptoms worsen Follow-up/Referrals: Elayne Encarnacion DO [Primary Care Provider] - Diet: Carb Consistent or DM2 Addtl Attending Provider Instructions: Follow-up with your primary care physician within 1 week. Do not take losartan until you see and discuss with your primary care physician. Take torsemide 20 mg daily, instead of twice a day. Take tolterodine, instead of 2 mg daily, you should only take 1 mg daily. Discussed all your medications with your primary care physician. Pending Studies at Discharge: No Stand-Alone Forms: My [employer], Smoking Cessation Medications and DC Order Prescriptions: New tolterodine 1 mg Tablet 0.5 mg PO BID 30 Days Qty: 30 0RF Continued atorvastatin 40 mg tablet 40 mg PO DAILY aspirin [Aspir-Low] 81 mg Tablet,Delayed Release (Dr/Ec) 81 mg PO DAILY acetaminophen [Tylenol Extra Strength] 500 mg Tablet 1,000 mg PO Q6H PRN (Reason: Pain) levothyroxine 100 mcg tablet 100 mcg PO DAILY famotidine 20 mg tablet 20 mg PO DAILY diltiazem HCl 60 mg capsule,extended release 12 hr 60 mg PO Q12 gabapentin 100 mg capsule 200 mg PO BID albuterol sulfate 90 mcg/actuation Hfa Aerosol Inhaler 2 puff INHALATION Q4 PRN (Reason: Shortness Of Breath) losartan 100 mg tablet 100 mg PO DAILY cholecalciferol (vitamin D3) [Vitamin D3] 10 mcg (400 unit) Tablet 10 mcg PO DAILY escitalopram oxalate 20 mg tablet 20 mg PO DAILY metoprolol tartrate 25 mg tablet 12.5 mg PO DAILY quetiapine 50 mg tablet 50 mg PO HS budesonide-formoterol [Symbicort] 80-4.5 mcg/actuation HFA aerosol inhaler 1 puff INHALATION DIRECTED insulin glargine [Lantus Solostar U-100 Insulin] 100 unit/mL (3 mL) insulin pen 20 unit SUBCUT BID Trulicity 1.5 mg/0.5 mL pen injector 1.5 mg SUBCUT .QSUNDAY Changed torsemide 20 mg tablet 20 mg PO QAM Qty: 30 0RF Discontinued tolterodine 2 mg capsule,extended release 24hr 2 mg PO DAILY Discharge Orders: Discharge Order (Routine); Ordered 11/07/22 Ordered By: Lito Lopez Admission Data Admit Date/Time: 11/02/22 14:12 Attending Provider: Lito Lopez Admit Provider: Nadine Chairez Primary Care Provider: Elayne Encarnacion Other Providers: Nadine Chairez ; Lito Lopez ; Andria Cooley
[2022-11-07] MEDS: EUCERIN CR 120 GM JAR EXT SCH (11:01)
== END 2022-11-07 15:28 | disposition home health service (06) | DRG 683 ==
LOC: ED 10:04 → SUATTDRO 14:12 → 2N 14:12